=== PATIENT | male | born 1955 | race Caucasian/White ===

== ENCOUNTER 2017-02-01 19:57 | Outpatient (CLI) | payer OTHER | END 2017-02-01 19:58 | disposition EMS.NT | LOC: EMS 19:57 | PROVIDERS: ATTEND Surgery | DX: F41.9 Anxiety disorder, unspecified (principal) ==

== ENCOUNTER 2017-04-03 16:13 | Emergency (ER) | payer OTHER ==
--- NOTE | 2017-04-03 16:50 | ED Physician Documentation ---
History of Present Illness - Stated complaint Stated Complaint: KEENE/DIZZINESS - Chief complaint Chief Complaint: Neuro - History obtained from History obtained from: Patient, Family - History of Present Illness Timing: How many days ago (several) Pain level max: 6 Pain level now: 5 Improved by: rest Worsened by: movement, light, noise - Additonal information Additional information: Patient is a 61-year-old male who presents to the emergency department after using a gas powered log splitter on Monday, thinks it was not well ventilated and developed headache since that time. Does have a history of headaches, has not taken anything for this headache. He also has been feeling increasingly anxious about his as she has been ill recently. States occasionally he feels like he cannot catch his breath and his hands start to tingle. He is not currently on anything for his anxiety. Does have a history of anxiety. He also stated that he had mild chest pain 2 days ago and some shortness of breath. No history of cardiac disease. Review of Systems Ten Systems: 10 systems reviewed and negative Constitutional: denies: Fever, Chills Ears: denies: Ear pain, Drainage/discharge Nose: denies: Rhinorrhea / runny nose, Congestion Throat: denies: Sore throat Respiratory: denies: Cough, Hemoptysis, Wheezing Skin: denies: Rash Musculoskeletal: denies: Neck pain, Back pain Neurologic: denies: Generalized weakness, Confused, Altered mental status PD PAST MEDICAL HISTORY - Past Medical History Cardiovascular: [place], Other Respiratory: Sleep apnea : Kidney stones Musculoskeletal: Chronic back pain - Past Surgical History Past Surgical History: Yes General: Appendectomy Ortho: Shoulder arthroplasty, Spine surgery - Present Medications Home Medications: Ambulatory Orders Medication Instructions Recorded Confirmed Doxycycline Hyclate 100 mg PO BID #14 capsule 12/22/15 04/03/17 LORazepam [Ativan] 0.5 mg PO Q6H PRN #7 tablet 04/03/17 - Allergies Allergies/Adverse Reactions: Allergies Allergy/AdvReac Type Severity Reaction Status Date / Time amoxicillin Allergy Hives Verified 12/26/15 18:28 - Social History Does the pt smoke?: No Smoking Status: Never smoker Does the pt drink ETOH?: No Does the pt have substance abuse?: No - Immunizations Immunizations are current?: Yes - POLST Patient has POLST: No PD ED PE NORMAL - Vitals Vital signs reviewed: Yes - General General: Alert and oriented X 3, No acute distress, Well developed/nourished, Other (tremulous, tearful) - HEENT HEENT: Atraumatic, PERRL, Ears normal, Moist mucous membranes - Neck Neck: Supple, no meningeal sign - Cardiac Cardiac: RRR, No murmur, Strong equal pulses - Respiratory Respiratory: No respiratory distress, Clear bilaterally - Abdomen Abdomen: Soft, Non tender, Non distended - Derm Derm: Warm and dry - Extremities Extremities: No edema, No calf tenderness / cord - Neuro Neuro: Alert and oriented X 3 - Psych Psych: Other (extremely anxious) Results - Vitals Vitals: Vital Signs - 24 hr 04/03/17 04/03/17 04/03/17 16:21 18:30 19:33 Temperature 36.8 C Heart Rate 63 86 90 Respiratory 24 18 16 Rate Blood Pressure 127/77 98/64 118/85 H O2 Saturation 100 98 96 Oxygen O2 Source Room air - EKG (time done) 1635 Rate: Rate (enter#) (58) Rhythm: NSR (with significant artifact) [place]: Normal Intervals: Normal [place] QRS: Normal Ischemia: Normal ST segments - Labs Labs: Laboratory Tests 04/03/17 04/03/17 04/03/17 17:35 17:35 17:35 WBC 10.0 RBC 4.13 L Hgb 13.5 L Hct 39.9 L MCV 96.6 H MCH 32.7 H MCHC 33.8 RDW 12.9 Plt Count 276 MPV 7.8 Neut # 5.3 Lymph # 3.9 H Garza # 0.8 Eos # 0.0 Baso # 0.0 Absolute Nucleated RBC 0.00 Nucleated RBC % 0.0 VBG Total Hgb VBG Oxyhemoglobin VBG Carboxyhemoglobin VBG Methemoglobin Sodium 140 Potassium 4.3 Chloride 104 Carbon Dioxide 23 Anion Gap 13.0 BUN 17 Creatinine 1.0 Estimated GFR (MDRD) 75 L Glucose 97 Calcium 10.0 Total Bilirubin 1.4 H AST 43 H ALT 22 Alkaline Phosphatase 64 Troponin I < 0.04 Total Protein 7.4 Albumin 4.8 Globulin 2.6 Albumin/Globulin Ratio 1.8 Lipase 35 04/03/17 17:35 WBC RBC Hgb Hct MCV MCH MCHC RDW Plt Count MPV Neut # Lymph # Garza # Eos # Baso # Absolute Nucleated RBC Nucleated RBC % VBG Total Hgb 13.9 VBG Oxyhemoglobin 90 L VBG Carboxyhemoglobin 0.8 VBG Methemoglobin 0.2 Sodium Potassium Chloride Carbon Dioxide Anion Gap BUN Creatinine Estimated GFR (MDRD) Glucose Calcium Total Bilirubin AST ALT Alkaline Phosphatase Troponin I Total Protein Albumin Globulin Albumin/Globulin Ratio Lipase - Rads (name of study) head CT Radiology: Prelim report reviewed, EMP read contemporaneously, See rad report ( No acute intracranial abnormality. ) cxr Radiology: Prelim report reviewed, EMP read contemporaneously, See rad report ( Normal single view chest. ) PD MEDICAL DECISION MAKING - ED course Complexity details: reviewed results, re-evaluated patient, considered differential, d/w patient, d/w family ED course: Patient is a 61-year-old gentleman who presents to the emergency department with sounds like increasing anxiety over the past few days. He has been under increasing stress at home and work. Feels better after Ativan. Also appeared to have a migraine headache, this is not unusual for him and resolved with Toradol, and compazine. No acute findings on chest x-ray, EKG, laboratory testing. We will continue supportive care and follow-up with his doctor. Will prescribe a small amount of Ativan for his anxiety. Patient states that this is similar to prior panic attacks in the past. Patient and family counseled regarding signs and symptoms for which I believe and urgent re-evaluation would be necessary. Patient with good understanding of and agreement to plan and is comfortable going home at this time This document was made in part using voice recognition software. While efforts are made to proofread this document, sound alike and grammatical errors may occur. Departure - Departure Disposition: 01 Home, Self Care Clinical Impression: Anxiety Migraine Qualifiers: Migraine type: unspecified Status migrainosus presence: without status migrainosus Intractability: not intractable Qualified Code(s): G43.909 - Migraine, unspecified, not intractable, without status migrainosus Condition: Good Instructions: ED Stress React, ED Headache Migraine Follow-Up: AZAM ANNE [Primary Care Provider] - Within 1 week Prescriptions: LORazepam [Ativan] 0.5 mg PO Q6H PRN #7 tablet PRN Reason: Anxiety Comments: Do not drive or operate heavy machinery while taking ativan. Return if you worsen. Do not drive tonight. Discharge Date/Time: 04/03/17 19:33
[2017-04-03] MEDS ORDERED: LORazepam 2 MG/ML VIAL IVP STA (17:02)
[2017-04-03] MEDS ORDERED: LORazepam 2 MG/ML VIAL ONE (17:15)
--- NOTE | 2017-04-03 17:27 | CT Preliminary Report ---
Exam: CT HEAD W/O IMPRESSION: No acute intracranial abnormality. [facility] SITE ID: [id number]
--- NOTE | 2017-04-03 17:30 | CT Report ---
EXAM: CT HEAD EXAM DATE: 04/03/2017 05:17 PM. CLINICAL HISTORY: Headache x 3 days. COMPARISON: 01/13/2013 CT head. TECHNIQUE: Multiaxial CT images were obtained from the foramen magnum to the vertex. Reformats: Coron al. IV contrast: None. In accordance with CT protocol optimization, one or more of the following dose reduction techniques w ere utilized for this exam: automated exposure control, adjustment of mA and/or KV based on patient s ize, or use of iterative reconstructive technique. FINDINGS: Parenchyma: No intraparenchymal hemorrhage. No evidence of mass, midline shift, or CT findings of inf arction. Calderon-white differentiation is distinct. Extraaxial Spaces: Normal for age. No subdural or epidural collections identified. Ventricles: Normal in size and position. Sinuses and Orbits: Imaged paranasal sinuses, orbits, and mastoids show no significant abnormality. Bones: No evidence of fracture or calvarial defect. Other: None. IMPRESSION: No acute intracranial abnormality. [facility] Referring Provider Line: [phone] SITE ID: [id number]
[2017-04-03 17:42] LABS: BASOPHILS % (AUTO) 0.4 %; EOSINOPHILS % (AUTO) 0.4 %; HCT - HEMATOCRIT 39.9 % (42.0-52.0); HGB - HEMOGLOBIN 13.5 g/dL (14.0-18.0); LYMPHOCYTES # (AUTO) 3.9 10^3/uL (1.5-3.5); LYMPHOCYTES % (AUTO) 39.1 %; MEAN CORPUSCULAR HEMOGLOBIN 32.7 pg (27.0-31.0); MEAN CORPUSCULAR HGB CONC 33.8 g/dL (32.0-36.0); MEAN CORPUSCULAR VOLUME 96.6 fL (80.0-94.0); MEAN PLATELET VOLUME 7.8 fL (7.4-11.4); MONOCYTES # (AUTO) 0.8 10^3/uL (0.0-1.0); MONOCYTES % (AUTO) 7.6 %; NEUTROPHILS # (AUTO) 5.3 10^3/uL (1.5-6.6); NEUTROPHILS % (AUTO) 52.5 %; RED BLOOD COUNT 4.13 10^6/uL (4.70-6.10); RED CELL DISTRIBUTION WIDTH 12.9 % (12.0-15.0)
[2017-04-03 17:47] LABS: METHEMOGLOBIN VENOUS 0.2 % (0-1.5)
[2017-04-03] MEDS ORDERED: PROCHLORPERAZINE 10 MG/2 ML VIAL IVP STA (17:59)
[2017-04-03] MEDS ORDERED: KETOROLAC 60 MG/2 ML VIAL IVP STA (17:59)
--- NOTE | 2017-04-03 18:07 | XRAY Preliminary Report ---
Exam: XR CHEST 1 VIEW IMPRESSION: Normal single view chest. [facility] SITE ID: [id number]
[2017-04-03] MEDS ORDERED: KETOROLAC 30 MG/ML VIAL ONE (18:09)
[2017-04-03] MEDS ORDERED: PROCHLORPERAZINE 10 MG/2 ML VIAL ONE (18:09)
[2017-04-03 18:11] LABS: ALBUMIN/GLOBULIN RATIO 1.8 (1.0-2.2); BILIRUBIN,TOTAL 1.4 mg/dL (0.2-1.0); POTASSIUM 4.3 mmol/L (3.5-5.0); TOTAL PROTEIN 7.4 g/dL (6.7-8.2)
--- NOTE | 2017-04-03 18:17 | XRAY Report ---
EXAM: CHEST RADIOGRAPHY EXAM DATE: 04/03/2017 05:27 PM. CLINICAL HISTORY: Chest pain for the last several days. COMPARISON: 07/17/2015. TECHNIQUE: 1 view. FINDINGS: Lungs/Pleura: No focal opacities evident. No pleural effusion. No pneumothorax. Mediastinum: Within exam limitations, the cardiomediastinal contour is normal. Other: Remote right total shoulder replacement. IMPRESSION: Normal single view chest. [facility] Referring Provider Line: [phone] SITE ID: [id number]
[2017-04-03 19:34] VITALS: BP 118/85
== END 2017-04-03 19:33 | disposition home or self-care (01) ==
LOC: ED 16:13
DX: F41.9 Anxiety disorder, unspecified (principal); G43.909 Migraine, unspecified, not intractable, without status migrainosus; I25.2 Old myocardial infarction; G47.30 Sleep apnea, unspecified
CPT/HCPCS: 36415; 70450; 71010; 80053; 82375; 83690; 84484; 85025; 93005; 96374; 96375; 99284; J2060

== ENCOUNTER 2018-07-12 09:14 | Emergency (ER) | payer OTHER ==
[2018-07-12] MEDS ORDERED: SODIUM CHLORIDE 0.9% 1,000 ML IV ONE (09:42)
[2018-07-12] MEDS ORDERED: ONDANSETRON 4 MG/2 ML VIAL IVP STA (09:42)
--- NOTE | 2018-07-12 09:45 | ED Physician Documentation ---
PD HPI NVD - Stated complaint Stated Complaint: FLU LIKE SX - Chief complaint Chief Complaint: General - History obtained from History obtained from: Patient - History of Present Illness Timing - onset: Enter time (399), Today Timing - duration: Hours Timing - details: Abrupt onset, Still present Associated symptoms: Abdominal pain Contributing factors: Other (recent) Improved by: Vomiting Similar symptoms before: Diagnosis (gastroenteritis and viral syndrome) Recently seen: Not recently seen - Additonal information Additional information: Previously well 62-year-old male spent most of the day outside working yesterday and this morning at about 4 AM he awoke with nausea and vomiting and chills. He does not have any other specific symptoms. Review of Systems Constitutional: reports: Chills, Fatigue. denies: Fever Eyes: denies: Decreased vision Ears: denies: Ear pain Nose: denies: Rhinorrhea / runny nose, Congestion Throat: denies: Sore throat Cardiac: denies: Chest pain / pressure, Palpitations Respiratory: reports: Cough. denies: Dyspnea GI: reports: Abdominal Pain, Nausea, Vomiting, Constipation : denies: Dysuria, Frequency Skin: denies: Rash Musculoskeletal: denies: Neck pain, Back pain, Extremity pain PD PAST MEDICAL HISTORY - Past Medical History Cardiovascular: [place], Other Respiratory: Sleep apnea : Kidney stones Musculoskeletal: Chronic back pain - Past Surgical History Past Surgical History: Yes General: Appendectomy Ortho: Shoulder arthroplasty, Spine surgery - Present Medications Home Medications: Ambulatory Orders Medication Instructions Recorded Confirmed Ondansetron Odt [Zofran] 4 mg TL Q6H PRN #10 tablet 07/12/18 - Allergies Allergies/Adverse Reactions: Allergies Allergy/AdvReac Type Severity Reaction Status Date / Time amoxicillin Allergy Hives Verified 07/12/18 09:26 - Social History Does the pt smoke?: No Smoking Status: Never smoker Does the pt drink ETOH?: No Does the pt have substance abuse?: No - Immunizations Immunizations are current?: Yes - POLST Patient has POLST: No PD ED PE NORMAL - Vitals Vital signs reviewed: Yes (hypertensive ) - General General: No acute distress, Well developed/nourished, Other (patient is hyperventilating ) - HEENT HEENT: Atraumatic, PERRL, EOMI, Other (dry mucous membranes) - Neck Neck: Supple, no meningeal sign, No bony TTP - Cardiac Cardiac: RRR, No murmur - Respiratory Respiratory: No respiratory distress, Clear bilaterally - Abdomen Abdomen: Soft, Non tender - Back Back: No CVA TTP, No spinal TTP - Derm Derm: Normal color, Warm and dry, No rash - Extremities Extremities: No deformity, No edema - Neuro Neuro: Alert and oriented X 3, 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, No motor deficit, No sensory deficit, Normal speech Eye Opening: Spontaneous Motor: Obeys Commands Verbal: Oriented GCS Score: 15 - Psych Psych: Normal mood, Normal affect Results - Vitals Vitals: Vital Signs - 24 hr 07/12/18 07/12/18 09:19 12:27 Temperature 36 C L 36.7 C Heart Rate 56 L 50 L Respiratory 22 20 Rate Blood Pressure 156/85 H 146/74 H O2 Saturation 98 96 Oxygen O2 Source Room air - Labs Labs: Laboratory Tests 07/12/18 07/12/18 07/12/18 09:52 09:52 09:52 WBC 14.1 H RBC 4.30 L Hgb 13.8 L Hct 40.7 L MCV 94.6 H MCH 32.1 H MCHC 33.9 RDW 12.8 Plt Count 275 MPV 8.1 Neut # (Auto) 11.3 H Lymph # (Auto) 1.9 Prentiss # (Auto) 0.7 Eos # (Auto) 0.0 Baso # (Auto) 0.1 Absolute Nucleated RBC 0.00 Nucleated RBC % 0.0 Sodium 139 Potassium 3.3 L Chloride 102 Carbon Dioxide 23 Anion Gap 14.0 H BUN 14 Creatinine 1.1 Estimated GFR (MDRD) 67 L Glucose 123 H Lactic Acid Calcium 9.6 Total Bilirubin 2.0 H AST 22 ALT 15 Alkaline Phosphatase 69 Troponin I < 0.04 Total Protein 7.5 Albumin 4.8 Globulin 2.7 Albumin/Globulin Ratio 1.8 Lipase 27 Urine Color Urine Clarity Urine pH Ur Specific [place]rett Urine Protein Urine Glucose (UA) Urine Ketones Urine Occult Blood Urine Nitrite Urine Bilirubin Urine Urobilinogen Ur Leukocyte Esterase Ur Microscopic Review Urine Culture Comments 07/12/18 07/12/18 09:52 11:44 WBC RBC Hgb Hct MCV MCH MCHC RDW Plt Count MPV Neut # (Auto) Lymph # (Auto) Prentiss # (Auto) Eos # (Auto) Baso # (Auto) Absolute Nucleated RBC Nucleated RBC % Sodium Potassium Chloride Carbon Dioxide Anion Gap BUN Creatinine Estimated GFR (MDRD) Glucose Lactic Acid 1.8 Calcium Total Bilirubin AST ALT Alkaline Phosphatase Troponin I Total Protein Albumin Globulin Albumin/Globulin Ratio Lipase Urine Color YELLOW Urine Clarity CLEAR Urine pH 7.5 Ur Specific [place] 1.020 Urine Protein NEGATIVE Urine Glucose (UA) NEGATIVE Urine Ketones 40 H Urine Occult Blood TRACE-INTA Urine Nitrite NEGATIVE Urine Bilirubin NEGATIVE Urine Urobilinogen 0.2 (NORMAL) Ur Leukocyte Esterase NEGATIVE Ur Microscopic Review NOT INDICATED Urine Culture Comments NOT INDICATED Procedures - IVC sono (time) 0940 Bedside IVC sono: IVC measures (cm) (1.40), IVC collapsed c insp (cm) (complete), Dehydration (est 1 liter deficit) PD MEDICAL DECISION MAKING - ED course Complexity details: reviewed old records, reviewed results, re-evaluated patient, considered differential, d/w patient ED course: 62-year-old male with nausea and vomiting is dehydrated on interrogation of the inferior vena cava and he is administered saline. As well as Zofran. Departure - Departure Disposition: 01 Home, Self Care Clinical Impression: Nausea & vomiting Qualifiers: Vomiting type: unspecified Vomiting Intractability: non-intractable Qualified Code(s): R11.2 - Nausea with vomiting, unspecified Condition: Stable Instructions: ED Diet Vomiting Diarrhea Follow-Up: AZAM ANNE [Primary Care Provider] - Prescriptions: Ondansetron Odt [Zofran] 4 mg TL Q6H PRN #10 tablet PRN Reason: Nausea / Vomiting
[2018-07-12 10:06] LABS: BASOPHILS # (AUTO) 0.1 10^3/uL (0.0-0.1); BASOPHILS % (AUTO) 0.6 %; EOSINOPHILS % (AUTO) 0.3 %; HGB - HEMOGLOBIN 13.8 g/dL (14.0-18.0); LYMPHOCYTES # (AUTO) 1.9 10^3/uL (1.5-3.5); LYMPHOCYTES % (AUTO) 13.3 %; MEAN CORPUSCULAR HEMOGLOBIN 32.1 pg (27.0-31.0); MEAN CORPUSCULAR HGB CONC 33.9 g/dL (32.0-36.0); MEAN CORPUSCULAR VOLUME 94.6 fL (80.0-94.0); MEAN PLATELET VOLUME 8.1 fL (7.4-11.4); MONOCYTES # (AUTO) 0.7 10^3/uL (0.0-1.0); MONOCYTES % (AUTO) 5.2 %; NEUTROPHILS # (AUTO) 11.3 10^3/uL (1.5-6.6); NEUTROPHILS % (AUTO) 80.6 %; PLT - PLATELET COUNT 275 10^3/uL (130-450); RED CELL DISTRIBUTION WIDTH 12.8 % (12.0-15.0); WHITE BLOOD COUNT 14.1 x10^3/uL (4.8-10.8)
[2018-07-12 10:16] LABS: ALBUMIN 4.8 g/dL (3.2-5.5); ALBUMIN/GLOBULIN RATIO 1.8 (1.0-2.2); CALCIUM 9.6 mg/dL (8.5-10.3); CREATININE 1.1 mg/dL (0.6-1.2); TOTAL PROTEIN 7.5 g/dL (6.7-8.2)
[2018-07-12 12:01] LABS: BILIRUBIN,URINE NEGATIVE (NEGATIVE); GLUCOSE, URINE (UA) NEGATIVE (NEGATIVE); KETONES,URINE (UA) 40 mg/dL (NEGATIVE); LEUKOCYTE ESTERASE, URINE NEGATIVE (NEGATIVE); NITRITE,URINE NEGATIVE (NEGATIVE); OCCULT BLOOD,URINE TRACE-INTA (NEGATIVE); PH,URINE 7.5 PH (5.0-7.5); PROTEIN,URINE NEGATIVE (NEGATIVE); UROBILINOGEN,URINE 0.2 (NORMAL) E.U./dL (NORMAL)
[2018-07-12 12:04] LABS: CLARITY,URINE CLEAR (CLEAR)
[2018-07-12] MEDS ORDERED: POTASSIUM BICARB 25 MEQ TABLET PO STA (12:05)
[2018-07-12 12:27] VITALS: BP 146/74
== END 2018-07-12 13:19 | disposition home or self-care (01) ==
LOC: ED 09:14
DX: R11.2 Nausea with vomiting, unspecified (principal); E86.0 Dehydration; I25.2 Old myocardial infarction
CPT/HCPCS: 36415; 80053; 81003; 83605; 83690; 84484; 85025; 87040; 96361; 96374; 99283; A9270; 81001; 87086

== ENCOUNTER 2018-09-14 12:59 | Outpatient (CLI) | payer OTHER | END 2018-09-14 13:00 | disposition home or self-care (01) | LOC: DI 12:59 | PROVIDERS: ATTEND Family Medicine | DX: Z53.9 Procedure and treatment not carried out, unspecified reason (principal) ==

== ENCOUNTER 2018-10-02 13:19 | Outpatient (CLI) | payer MEDICARE, OTHER ==
--- NOTE | 2018-10-03 11:43 | MRI Report ---
Reason: PAIN IN UNSPECIFIED SHOULDER Procedure Date: 10/02/2018 Accession Number: [id number] / [id number] Procedure: MRI - Shoulder RT W/O CPT Code: FULL RESULT: EXAM: RIGHT SHOULDER MRI WITHOUT CONTRAST EXAM DATE: 10/02/2018 03:10 PM. CLINICAL HISTORY: Shoulder arthroplasty, with pain. COMPARISON: None. TECHNIQUE: Multiplanar, multisequence T1-weighted and fluid-sensitive sequences of the shoulder without contrast. Other: Artifact from metallic shoulder arthroplasty. FINDINGS: Acromioclavicular Region: The acromion is type II. The acromioclavicular joint is unremarkable. The coracoacromial and coracoclavicular ligaments are intact. No subacromial/subdeltoid bursal fluid. Glenohumeral Region: No subluxation. No effusion or loose bodies. Bone Marrow: No fracture, marrow edema or bone lesions. Labrum: Labrum not visualized. Shoulder arthroplasty. Musculature/Rotator Cuff: Assessment of the individual tendons is a somewhat difficult because of the amount of artifact which is present; however, there is some thickening of the supraspinatus. Infraspinatus and teres minor have a more normal appearance. Subscapularis is not well seen. On the more proximal sagittals, there is distinct focal fatty atrophy of the superior 80% of the subscapularis. Series 801 image 23 for example. Biceps Tendon: Long head of biceps is not seen. Uncertain if this is related to pathology or just artifact from the shoulder arthroplasty. Other: The subcutaneous tissues are unremarkable. IMPRESSION: 1. 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 Type II undersurface osseous acromion. Labrum not visualized. 2. Some abnormal thickening/tendinopathy seen in the supraspinatus. Infraspinatus and teres minor are normal appearance. The subscapularis attachment is not seen. Uncertain if this is torn or atrophic. There is substantial fatty atrophy more proximally involving the majority of the subscapularis muscle. 3. Long head of the biceps is not seen, uncertain if this is related to poor visibility secondary to artifact or if the patient has had a tenodesis. [facility]
== END 2018-10-02 13:20 | disposition home or self-care (01) ==
LOC: DI 13:19
PROVIDERS: ATTEND Family Medicine
DX: M75.91 Shoulder lesion, unspecified, right shoulder (principal)

== ENCOUNTER 2018-10-16 09:53 | Day surgery (SDC) | payer MEDICARE, OTHER ==
[2018-10-16] MEDS ORDERED: LACTATED RINGERS 1,000 ML IV ONE ×2 (10:07→12:02)
[2018-10-16] MEDS ORDERED: MIDAZOLAM 2 MG/2 ML VIAL IVP ONE (11:23)
[2018-10-16] MEDS ORDERED: fentaNYL 250 MCG/5 ML VIAL IVP ONE (11:23)
[2018-10-16] MEDS ORDERED: LIDO GARGLE 30 ML BOTTLE ONE (11:27)
[2018-10-16] MEDS ORDERED: LIDO GARGLE 30 ML BOTTLE PO ONE (11:44)
[2018-10-16 12:54] VITALS: BP 90/56
== END 2018-10-16 09:54 | disposition home or self-care (01) ==
LOC: SDS 09:53
PROVIDERS: ATTEND Internal Medicine Gastroenterology
PROC: 0DBP8ZZ Excision of Rectum, Via Natural or Artificial Opening Endoscopic (ICD-10-PCS; 2018-10-16)
PROC: 0DBN8ZZ Excision of Sigmoid Colon, Via Natural or Artificial Opening Endoscopic (ICD-10-PCS; 2018-10-16)
PROC: 0DB98ZX Excision of Duodenum, Via Natural or Artificial Opening Endoscopic, Diagnostic (ICD-10-PCS; 2018-10-16)
PROC: 0DB78ZX Excision of Stomach, Pylorus, Via Natural or Artificial Opening Endoscopic, Diagnostic (ICD-10-PCS; 2018-10-16)
PROC: 0DBP8ZZ Excision of Rectum, Via Natural or Artificial Opening Endoscopic (ICD-10-PCS; principal; 2018-10-16 11:15)
PROC: 0DBN8ZZ Excision of Sigmoid Colon, Via Natural or Artificial Opening Endoscopic (ICD-10-PCS; 2018-10-16 11:15)
DX: D11.0 Benign neoplasm of parotid gland (principal); D64.9 Anemia, unspecified; D12.5 Benign neoplasm of sigmoid colon; K62.1 Rectal polyp; K57.30 Diverticulosis of large intestine without perforation or abscess without bleeding; F17.220 Nicotine dependence, chewing tobacco, uncomplicated; G47.30 Sleep apnea, unspecified
CPT/HCPCS: 43239; 45380; 45385; A9270; J3010; J7120

== ENCOUNTER 2019-06-04 10:10 | Emergency (ER) | payer MEDICARE, OTHER ==
[2019-06-04 10:38] LABS: BASOPHILS # (AUTO) 0.1 10^3/uL (0.0-0.1); BASOPHILS % (AUTO) 0.5 %; EOSINOPHILS # (AUTO) 0.1 10^3/uL (0.0-0.7); EOSINOPHILS % (AUTO) 0.8 %; HGB - HEMOGLOBIN 13.4 g/dL (14.0-18.0); MEAN CORPUSCULAR HEMOGLOBIN 32.8 pg (27.0-31.0); MEAN CORPUSCULAR HGB CONC 35.1 g/dL (32.0-36.0); MEAN CORPUSCULAR VOLUME 93.6 fL (80.0-94.0); MEAN PLATELET VOLUME 9.2 fL (7.4-11.4); MONOCYTES # (AUTO) 0.8 10^3/uL (0.0-1.0); MONOCYTES % (AUTO) 6.8 %; NEUTROPHILS # (AUTO) 8.1 10^3/uL (1.5-6.6); NEUTROPHILS % (AUTO) 73.4 %; PLT - PLATELET COUNT 244 10^3/uL (130-450); RED BLOOD COUNT 4.08 10^6/uL (4.70-6.10); RED CELL DISTRIBUTION WIDTH 12.8 % (12.0-15.0)
[2019-06-04] MEDS ORDERED: ONDANSETRON 4 MG/2 ML VIAL IVP STA (10:59)
[2019-06-04] MEDS ORDERED: SODIUM CHLORIDE 0.9% 1,000 ML IV ONE (11:14)
--- NOTE | 2019-06-04 11:17 | ED Physician Documentation ---
PD HPI NVD - Stated complaint Stated Complaint: VOMITING,CHILLS - Chief complaint Chief Complaint: Abd Pain - History obtained from History obtained from: Patient - History of Present Illness Timing - onset: How many days ago (5) Timing - duration: Days (5) Associated symptoms: No: Fever, Abdominal pain, Hematemesis, Dizzy, Dysuria Contributing factors: No: Sick contact, Bad food Recently seen: Not recently seen - Additonal information Additional information: This is a 63-year-old man who presents with complaints that he began vomiting about 5 days ago in the morning. He says since that time he will feel better through the day and last night he thought he was doing better because he ate some bouillon and oatmeal and then this morning ate some Cheerios and then he started throwing up again. Last emesis was about an hour prior to presentation. Has had some intermittent abdominal pain. Denies any diarrhea and has not seen blood in the vomit. He does complain of feeling freezing but has not checked his temperature to see if he had a fever. Has been sucking on cough drops just to try and keep his mouth moistened but denies any cough. He feels like there is pain behind his eyes whenever he stands up but he does not really have a headache. He is wearing dark glasses just because the light bothers his eyes but it seems like that may be a chronic issue. He has not passed out. Denies any palpitations or chest pain. Has had a bit of a stuffy nose. Denies any history of heart disease. He did not eat anything that he thinks may have made him sick and has not been around anyone who is been ill. He is retired. Review of Systems Constitutional: reports: Chills. denies: Fever Eyes: reports: Photophobia, Other (Pain behind the eyes). denies: Loss of vision Ears: denies: Ear pain Nose: reports: Congestion. denies: Rhinorrhea / runny nose Throat: denies: Sore throat Cardiac: denies: Chest pain / pressure, Palpitations Respiratory: denies: Dyspnea, Cough GI: reports: Abdominal Pain, Nausea, Vomiting. denies: Constipation, Diarrhea : denies: Dysuria Endocrine: reports: Other (He is not diabetic) PD PAST MEDICAL HISTORY - Past Medical History Past Medical History: Yes Cardiovascular: [place], Other Respiratory: Sleep apnea : Kidney stones Musculoskeletal: Chronic back pain - Past Surgical History Past Surgical History: Yes General: Appendectomy Ortho: Shoulder arthroplasty, Spine surgery - Present Medications Home Medications: Ambulatory Orders Medication Instructions Recorded Confirmed Ibuprofen 600 mg PO PRN PRN 10/15/18 06/04/19 Metoclopramide [Reglan] 10 mg PO ACHS #20 tablet 06/04/19 - Allergies Allergies/Adverse Reactions: Allergies Allergy/AdvReac Type Severity Reaction Status Date / Time amoxicillin Allergy Hives Verified 06/04/19 10:26 - Social History Does the pt smoke?: No Smoking Status: Never smoker Does the pt drink ETOH?: No Does the pt have substance abuse?: No - Immunizations Immunizations are current?: Yes - POLST Patient has POLST: No PD ED PE NORMAL - Vitals Vital signs reviewed: Yes - General General: Alert and oriented X 3, No acute distress, Well developed/nourished, Other (He has on dark glasses) - HEENT HEENT: Atraumatic, PERRL, EOMI, Other (Mucous membranes are dry. There is no scleral icterus) - Neck Neck: Supple, no meningeal sign, No adenopathy - Cardiac Cardiac: RRR, No murmur, Strong equal pulses - Respiratory Respiratory: No respiratory distress, Clear bilaterally - Abdomen Abdomen: Normal bowel sounds, Soft, No organomegaly, Other (Minimal diffuse tenderness without guarding or rebound) - Back Back: No CVA TTP - Derm Derm: Normal color, Warm and dry, No rash - Extremities Extremities: No deformity, No edema - Neuro Neuro: Alert and oriented X 3, public stenographer 2-12 intact, No motor deficit, No sensory d eficit, Normal speech - Psych Psych: Normal mood, Normal affect Results - Vitals Vitals: Vital Signs - 24 hr 06/04/19 06/04/19 06/04/19 10:21 10:42 12:31 Temperature 36.6 C Heart Rate 45 L 53 L 71 Respiratory 16 20 14 Rate Blood Pressure 184/84 H 165/75 H 97/65 O2 Saturation 98 100 95 06/04/19 14:50 Temperature Heart Rate 80 Respiratory 16 Rate Blood Pressure 119/87 H O2 Saturation 98 Oxygen O2 Source Room air - EKG (time done) 1110 Rate: Rate (enter#) (48) Rhythm: Sinus bradycardia Intervals: No: Wide QRS Ischemia: Non specific changes, Other (Peaked T waves diffusely.) Compare to prior EKG: Old EKG unavailable - Labs Labs: Laboratory Tests 06/04/19 06/04/19 06/04/19 10:35 10:35 10:35 WBC 11.0 H RBC 4.08 L Hgb 13.4 L Hct 38.2 L MCV 93.6 MCH 32.8 H MCHC 35.1 RDW 12.8 Plt Count 244 MPV 9.2 Neut # (Auto) 8.1 H Lymph # (Auto) 2.0 [place] # (Auto) 0.8 Eos # (Auto) 0.1 Baso # (Auto) 0.1 Absolute Nucleated RBC 0.00 Nucleated RBC % 0.0 Sodium 141 Potassium 3.8 Chloride 103 Carbon Dioxide 25 Anion Gap 13.0 BUN 13 Creatinine 1.0 Estimated GFR (MDRD) 75 L Glucose 117 H Calcium 9.5 Total Bilirubin 1.9 H AST 23 ALT 19 Alkaline Phosphatase 71 Troponin I High Sens 6.7 Total Protein 7.1 Albumin 4.4 Globulin 2.7 Albumin/Globulin Ratio 1.6 Lipase 31 Urine Color Urine Clarity Urine pH Ur Specific [place] Urine Protein Urine Glucose (UA) Urine Ketones Urine Occult Blood Urine Nitrite Urine Bilirubin Urine Urobilinogen Ur Leukocyte Esterase Urine RBC Urine WBC Ur Squamous Epith Cells Urine Bacteria Ur Microscopic Review Urine Culture Comments 06/04/19 12:16 WBC RBC Hgb Hct MCV MCH MCHC RDW Plt Count MPV Neut # (Auto) Lymph # (Auto) [place] # (Auto) Eos # (Auto) Baso # (Auto) Absolute Nucleated RBC Nucleated RBC % Sodium Potassium Chloride Carbon Dioxide Anion Gap BUN Creatinine Estimated GFR (MDRD) Glucose Calcium Total Bilirubin AST ALT Alkaline Phosphatase Troponin I High Sens Total Protein Albumin Globulin Albumin/Globulin Ratio Lipase Urine Color YELLOW Urine Clarity CLEAR Urine pH 7.5 Ur Specific [place] 1.015 Urine Protein NEGATIVE Urine Glucose (UA) NEGATIVE Urine Ketones NEGATIVE Urine Occult Blood SMALL H Urine Nitrite NEGATIVE Urine Bilirubin NEGATIVE Urine Urobilinogen 0.2 (NORMAL) Ur Leukocyte Esterase NEGATIVE Urine RBC 0-5 Urine WBC 0-3 Ur Squamous Epith Cells NONE SEEN Urine Bacteria Rare Ur Microscopic Review INDICATED Urine Culture Comments NOT INDICATED - Rads (name of study) CT abd/pelvis Radiology: See rad report (no obstructing kidney stone; diverticuli without diverticulitis) PD MEDICAL DECISION MAKING - ED course Complexity details: reviewed results, re-evaluated patient, d/w patient ED course: Patient had an IV fluids. Had Zofran IV. White blood cell count is normal and BUN and creatinine are normal. He had just 0-5 red blood cells per high-power field and the last time he felt like this 10 to 20 years ago he had a kidney stone. We discussed the risk and benefits of imaging and he would like to have a CT scan done. 1554: The CT scan was negative for obstructing kidney stone or diverticulitis. He is discharged with instructions to take Pepcid and I gave him a prescription for Reglan to use before meals. I have recommended follow-up with GI specialist as it seems that this is more longstanding issue than he initially stated. Departure - Departure Disposition: 01 Home, Self Care Clinical Impression: Vomiting Qualifiers: Vomiting type: unspecified Vomiting Intractability: non-intractable Nausea presence: with nausea Qualified Code(s): R11.2 - Nausea with vomiting, unspecified Abdominal pain Qualifiers: Abdominal location: generalized Qualified Code(s): R10.84 - Generalized abdominal pain Condition: Good Instructions: ED Abdominal Pain Unkn Cause Follow-Up: Pramod Santoyo MD [Physician No Access] - CARMELINA ZUÑIGA MD [Physician No Access] - Prescriptions: Metoclopramide [Reglan] 10 mg PO ACHS #20 tablet Comments: Your CT scan shows no evidence of an obstructing kidney stone although you have some small kidney stones in the kidney. You also have diverticulosis without evidence of any inflammation to indicate infection. Take the Pepcid daily. Trial of Reglan a half an hour before you eat breakfast in the morning or dinner at night to see if that makes any difference with your nausea and abdominal pain. I have given you numbers for referrals to [facility] and [facility] and you can decide which one is most appropriate for you. Evaluation by GI specialist is probably warranted with this longstanding issue. Discharge Date/Time: 06/04/19 16:05
[2019-06-04 11:46] LABS: ALBUMIN 4.4 g/dL (3.2-5.5); ALBUMIN/GLOBULIN RATIO 1.6 (1.0-2.2); BILIRUBIN,TOTAL 1.9 mg/dL (0.2-1.0); CALCIUM 9.5 mg/dL (8.5-10.3); TOTAL PROTEIN 7.1 g/dL (6.7-8.2)
[2019-06-04 12:38] LABS: BILIRUBIN,URINE NEGATIVE (NEGATIVE); GLUCOSE, URINE (UA) NEGATIVE (NEGATIVE); KETONES,URINE (UA) NEGATIVE (NEGATIVE); LEUKOCYTE ESTERASE, URINE NEGATIVE (NEGATIVE); NITRITE,URINE NEGATIVE (NEGATIVE); OCCULT BLOOD,URINE SMALL (NEGATIVE); PH,URINE 7.5 PH (5.0-7.5); PROTEIN,URINE NEGATIVE (NEGATIVE); UROBILINOGEN,URINE 0.2 (NORMAL) E.U./dL (NORMAL)
[2019-06-04 12:40] LABS: CLARITY,URINE CLEAR (CLEAR)
[2019-06-04 12:50] LABS: BACTERIA,URINE Rare /HPF (None Seen); RBC,URINE 0-5 /HPF (0-5); SQUAMOUS EPITHELIAL CELL,UR NONE SEEN (<= Few)
[2019-06-04 14:50] VITALS: BP 119/87
--- NOTE | 2019-06-04 14:51 | CT Report ---
Reason: abd pain Procedure Date: 06/04/2019 Accession Number: [id number] / [id number] Procedure: CT - Abdomen/Pelvis WO CPT Code: Final Report FULL RESULT: EXAM: CT ABDOMEN AND PELVIS EXAM DATE: 06/04/2019 02:27 PM. CLINICAL HISTORY: Abd pain. COMPARISONS: KUB 05/16/2014 12:57 PM. TECHNIQUE: Routine helical CT imaging was performed through the abdomen and pelvis. IV contrast: None. Enteric contrast: No. Reconstructions: Coronal and sagittal. In accordance with CT protocol optimization, one or more of the following dose reduction techniques were utilized for this exam: automated exposure control, adjustment of mA and/or KV based on patient size, or use of iterative reconstructive technique. FINDINGS: Lung Bases: Unremarkable. Liver: Normal. No masses. Gallbladder/Bile Ducts: Unremarkable. Spleen: Normal. Pancreas: Normal. Adrenal Glands: Normal. Kidneys: No solid renal masses or hydronephrosis bilaterally. Bilateral nonobstructing small renal calculi seen, the largest in the right mid pole measuring 5 mm. No perinephric fat stranding. No ureteral calculi are seen. Simple appearing exophytic 2.5 cm left interpolar renal cyst. Peritoneal Cavity/Bowel: Unremarkable stomach. Normal caliber small bowel loops without signs of wall thickening or fluid levels. Scattered sigmoid colonic diverticula noted without evidence for acute inflammation. Stable few prominent retroperitoneal lymph nodes. No new or enlarging intra-abdominal lymphadenopathy. No masses are seen. No discrete fluid collections. Appendix appears surgically absent with a staple line at the inferior cecum. Pelvic Organs: Unremarkable urinary bladder for degree of distention. Prostate and seminal vesicles appear unremarkable on noncontrast CT. No enlarged pelvic or inguinal lymph nodes. Vasculature: No aneurysms or other significant abnormality. Bones: No significant abnormality. Other: None. IMPRESSION: 1. No acute abnormality seen in the abdomen or pelvis. No CT findings to explain acute abdominal pain. 2. Bilateral nonobstructing renal calculi are seen. No obstructing calculi nor hydronephrosis bilaterally. 3. Scattered sigmoid colonic diverticulosis without evidence for acute diverticulitis. RADIA
== END 2019-06-04 16:05 | disposition home or self-care (01) ==
LOC: ED 10:10
DX: R11.2 Nausea with vomiting, unspecified (principal); R10.84 Generalized abdominal pain; N20.0 Calculus of kidney
CPT/HCPCS: 36415; 74176; 80053; 81001; 81003; 83690; 84484; 85025; 87086; 93005; 96361; 96374; 99284

== ENCOUNTER 2019-07-07 13:26 | Emergency (ER) | payer MEDICARE, OTHER ==
[2019-07-07 13:40] VITALS: BP 119/63
--- NOTE | 2019-07-07 14:15 | ED Physician Documentation ---
History of Present Illness - Stated complaint Stated Complaint: LT SHOULDER PX - Chief complaint Chief Complaint: Ext Problem - History obtained from History obtained from: Patient - History of Present Illness Timing: Today Pain level max: 7 Pain level now: 7 - Additonal information Additional information: 63-year-old male with left shoulder pain. States he awoke with this pain today. Worse with movement and better with rest. History of chronic shoulder problems on the right. Does not recall any injury. Took ibuprofen without relief. No fall. No trauma. No lifting. Review of Systems Constitutional: denies: Fever, Chills GI: denies: Vomiting, Diarrhea Skin: denies: Rash Musculoskeletal: denies: Neck pain, Back pain Neurologic: denies: Headache PD PAST MEDICAL HISTORY - Past Medical History Cardiovascular: [place], Other Respiratory: Sleep apnea : Kidney stones Musculoskeletal: Chronic back pain - Past Surgical History Past Surgical History: Yes General: Appendectomy Ortho: Shoulder arthroplasty, Spine surgery - Present Medications Home Medications: Ambulatory Orders Medication Instructions Recorded Confirmed Ibuprofen 600 mg PO PRN PRN 10/15/18 06/04/19 Metoclopramide [Reglan] 10 mg PO ACHS #20 tablet 06/04/19 Ibuprofen [Motrin] 800 mg PO Q8H PRN #30 tablet 07/07/19 - Allergies Allergies/Adverse Reactions: Allergies Allergy/AdvReac Type Severity Reaction Status Date / Time amoxicillin Allergy Hives Verified 07/07/19 13:30 - Social History Does the pt smoke?: No Smoking Status: Never smoker Does the pt drink ETOH?: No Does the pt have substance abuse?: No - Immunizations Immunizations are current?: Yes - POLST Patient has POLST: No PD ED PE NORMAL - Vitals Vital signs reviewed: Yes - General General: Alert and oriented X 3, No acute distress - HEENT HEENT: Moist mucous membranes - Neck Neck: Supple, no meningeal sign - Cardiac Cardiac: RRR - Respiratory Respiratory: No respiratory distress, Clear bilaterally - Derm Derm: Warm and dry - Extremities Extremities: Other (Diffusely tender to palpation over the left shoulder. No deformity. Limited range of motion with external and internal rotation. Also abduction. Neurovascular intact including the axillary nerve.) - Neuro Neuro: Alert and oriented X 3 Results - Vitals Vitals: Vital Signs - 24 hr 07/07/19 13:30 Temperature 36.7 C Heart Rate 64 Respiratory 14 Rate Blood Pressure 119/63 O2 Saturation 100 Oxygen O2 Source Room air - Rads (name of study) Left shoulder x-ray Radiology: Prelim report reviewed, EMP read contemporaneously, See rad report (1. No acute osseous abnormality. 2. Amorphous 1 x 0.6 cm calcification ove rlying the greater tuberosity of the humerus near the rotator cuff insertion suggests which appears to be in the distribution of the subscapularis tendon. Findings suggest rotator cuff calcific tendinosis. 3. Moderate glenohumeral joint osteoarthritis. ) PD MEDICAL DECISION MAKING - ED course Complexity details: reviewed results, re-evaluated patient, considered differential, d/w patient ED course: Patient with what appears to be a rotator cuff tendinitis. He states he does not want anything stronger than ibuprofen. Declines a sling. Will continue gentle movement and stretching. Neurovascular intact. Patient counseled regarding signs and symptoms for which I believe and urgent re-evaluation would be necessary. Patient with good understanding of and agreement to plan and is comfortable going home at this time This document was made in part using voice recognition software. While efforts are made to proofread this document, sound alike and grammatical errors may occur. Departure - Departure Disposition: 01 Home, Self Care Clinical Impression: Rotator cuff tendonitis Qualifiers: Laterality: left Qualified Code(s): M75.82 - Other shoulder lesions, left shoulder Condition: Good Instructions: ED Tendinitis Rotator Cuff, ED Tendinitis Calcific Follow-Up: KATY RENO MD [Primary Care Provider] - Within 1 week Prescriptions: Ibuprofen [Motrin] 800 mg PO Q8H PRN #30 tablet PRN Reason: PAIN &/OR FEVER Comments: Continue gentle stretching. Return if you worsen. This should improve over the next 1-2 weeks. Discharge Date/Time: 07/07/19 15:19
--- NOTE | 2019-07-07 15:02 | XRAY Report ---
Reason: L shoulder pain Procedure Date: 07/07/2019 Accession Number: [id number] / [id number] Procedure: XR - Shoulder 3 View LT CPT Code: Final Report FULL RESULT: EXAM: LEFT SHOULDER RADIOGRAPHY EXAM DATE: 07/07/2019 02:31 PM. CLINICAL HISTORY: Left shoulder pain. No trauma. COMPARISON: None. TECHNIQUE: 3 views. FINDINGS: Bones: No acute fracture. No suspicious osseous lesion. Joints: Moderate glenohumeral joint osteoarthritis with small osteophytes along the inferior arc of the humeral head and the inferior glenoid. Mild to moderate acromioclavicular joint osteoarthritis. No dislocation. Other: Amorphous 1 x 0.6 cm calcification overlying the greater tuberosity of the humerus near the rotator cuff insertion suggests which appears to be in the distribution of the subscapularis tendon. There are calcifications in the aortic arch. IMPRESSION: 1. No acute osseous abnormality. 2. Amorphous 1 x 0.6 cm calcification overlying the greater tuberosity of the humerus near the rotator cuff insertion suggests which appears to be in the distribution of the subscapularis tendon. Findings suggest rotator cuff calcific tendinosis. 3. Moderate glenohumeral joint osteoarthritis. RADIA
== END 2019-07-07 15:19 | disposition home or self-care (01) ==
LOC: ED 13:26
DX: M75.82 Other shoulder lesions, left shoulder (principal)
CPT/HCPCS: 99283; 99284

== ENCOUNTER 2020-03-01 10:17 | Emergency (ER) | payer MEDICARE, OTHER ==
[2020-03-01 11:05] LABS: BASOPHILS % (AUTO) 0.2 %; EOSINOPHILS % (AUTO) 0.2 %; HGB - HEMOGLOBIN 12.8 g/dL (14.0-18.0); LYMPHOCYTES # (AUTO) 1.5 10^3/uL (1.5-3.5); LYMPHOCYTES % (AUTO) 12.2 %; MEAN CORPUSCULAR HEMOGLOBIN 33.2 pg (27.0-31.0); MEAN CORPUSCULAR VOLUME 94.8 fL (80.0-94.0); MEAN PLATELET VOLUME 9.7 fL (7.4-11.4); MONOCYTES # (AUTO) 0.7 10^3/uL (0.0-1.0); NEUTROPHILS # (AUTO) 9.9 10^3/uL (1.5-6.6); NEUTROPHILS % (AUTO) 80.9 %; PLT - PLATELET COUNT 240 10^3/uL (130-450); RED BLOOD COUNT 3.86 10^6/uL (4.70-6.10); RED CELL DISTRIBUTION WIDTH 12.2 % (12.0-15.0); WHITE BLOOD COUNT 12.3 x10^3/uL (4.8-10.8)
[2020-03-01 11:18] LABS: ALBUMIN 4.3 g/dL (3.2-5.5); ALBUMIN/GLOBULIN RATIO 1.7 (1.0-2.2); BILIRUBIN,TOTAL 1.9 mg/dL (0.2-1.0); CALCIUM 9.6 mg/dL (8.5-10.3); TOTAL PROTEIN 6.9 g/dL (6.7-8.2)
[2020-03-01 11:29] LABS: BILIRUBIN,URINE NEGATIVE (NEGATIVE); GLUCOSE, URINE (UA) NEGATIVE (NEGATIVE); KETONES,URINE (UA) NEGATIVE (NEGATIVE); LEUKOCYTE ESTERASE, URINE NEGATIVE (NEGATIVE); NITRITE,URINE NEGATIVE (NEGATIVE); OCCULT BLOOD,URINE MODERATE (NEGATIVE); PROTEIN,URINE NEGATIVE (NEGATIVE); UROBILINOGEN,URINE 0.2 (NORMAL) E.U./dL (NORMAL)
[2020-03-01] MEDS ORDERED: SODIUM CHLORIDE 0.9% 1,000 ML IV STA (11:29)
[2020-03-01] MEDS ORDERED: ONDANSETRON 4 MG/2 ML VIAL IVP STA (11:29)
[2020-03-01 11:30] LABS: CLARITY,URINE CLEAR (CLEAR)
[2020-03-01 11:48] LABS: BACTERIA,URINE Few /HPF (None Seen); RBC,URINE 0-5 /HPF (0-5); SQUAMOUS EPITHELIAL CELL,UR NONE SEEN (<= Few)
--- NOTE | 2020-03-01 12:57 | ED Physician Documentation ---
PD HPI ABD PAIN - Stated complaint Stated Complaint: VOMITING - Chief complaint Chief Complaint: Abd Pain - History obtained from History obtained from: Patient - Additional information Additional information: Pt c/o vomiting since yesterday. No diarrhea or fevers. Cramping, but otherwise no abdominal pain. Pt states that he gets these sx regularly, and that the sx are not different from his usual episodes. He states he is mainly here because he is afraid he has become too dehydrated. Review of Systems Ten Systems: 10 systems reviewed and negative Constitutional: reports: Reviewed and negative Eyes: reports: Reviewed and negative Ears: reports: Reviewed and negative Nose: reports: Reviewed and negative Throat: reports: Reviewed and negative Cardiac: reports: Reviewed and negative Respiratory: reports: Reviewed and negative GI: reports: Nausea, Vomiting : reports: Reviewed and negative Skin: reports: Reviewed and negative Musculoskeletal: reports: Reviewed and negative Neurologic: reports: Reviewed and negative Psychiatric: reports: Reviewed and negative Endocrine: reports: Reviewed and negative Immunocompromised: reports: Reviewed and negative PD PAST MEDICAL HISTORY - Past Medical History Cardiovascular: [place], Other Respiratory: Sleep apnea : Kidney stones Musculoskeletal: Chronic back pain - Past Surgical History Past Surgical History: Yes General: Appendectomy Ortho: Shoulder arthroplasty, Spine surgery - Present Medications Home Medications: Ambulatory Orders Medication Instructions Recorded Confirmed Ibuprofen 600 mg PO PRN PRN 10/15/18 06/04/19 Metoclopramide [Reglan] 10 mg PO ACHS #20 tablet 06/04/19 Ibuprofen [Motrin] 800 mg PO Q8H PRN #30 tablet 07/07/19 Promethazine [Phenergan] 25 mg PO Q6H PRN #10 tab 03/02/20 - Allergies Allergies/Adverse Reactions: Allergies Allergy/AdvReac Type Severity Reaction Status Date / Time amoxicillin Allergy Hives Verified 03/01/20 10:23 - Social History Does the pt smoke?: No Smoking Status: Never smoker Does the pt drink ETOH?: No Does the pt have substance abuse?: No - Immunizations Immunizations are current?: Yes - POLST Patient has POLST: No PD ED PE NORMAL - Vitals Vital signs reviewed: Yes - General General: Alert and oriented X 3, No acute distress - HEENT HEENT: Atraumatic, PERRL, EOMI, Moist mucous membranes - Neck Neck: Supple, no meningeal sign - Cardiac Cardiac: RRR, No murmur, Strong equal pulses - Respiratory Respiratory: No respiratory distress, Clear bilaterally - Abdomen Abdomen: Soft, Non tender, Non distended - Derm Derm: Normal color, Warm and dry, No rash - Extremities Extremities: No deformity, No edema, No calf tenderness / cord - Neuro Neuro: Alert and oriented X 3, Other (grossly normal) - Psych Psych: Normal mood, Normal affect Results - Vitals Vitals: Oxygen O2 Source Room air - Labs Labs: Laboratory Tests 03/01/20 03/01/20 03/01/20 10:55 10:55 11:07 WBC 12.3 H RBC 3.86 L Hgb 12.8 L Hct 36.6 L MCV 94.8 H MCH 33.2 H MCHC 35.0 RDW 12.2 Plt Count 240 MPV 9.7 Neut # (Auto) 9.9 H Lymph # (Auto) 1.5 [place] # (Auto) 0.7 Eos # (Auto) 0.0 Baso # (Auto) 0.0 Absolute Nucleated RBC 0.00 Nucleated RBC % 0.0 Sodium 136 Potassium 3.5 Chloride 99 L Carbon Dioxide 25 Anion Gap 12.0 BUN 18 Creatinine 1.0 Estimated GFR (MDRD) 75 L Glucose 122 H Calcium 9.6 Total Bilirubin 1.9 H AST 21 ALT 19 Alkaline Phosphatase 70 Total Protein 6.9 Albumin 4.3 Globulin 2.6 Albumin/Globulin Ratio 1.7 Lipase 28 Urine Color DARK YELLOW Urine Clarity CLEAR Urine pH 6.0 Ur Specific [place] 1.025 Urine Protein NEGATIVE Urine Glucose (UA) NEGATIVE Urine Ketones NEGATIVE Urine Occult Blood MODERATE H Urine Nitrite NEGATIVE Urine Bilirubin NEGATIVE Urine Urobilinogen 0.2 (NORMAL) Ur Leukocyte Esterase NEGATIVE Urine RBC 0-5 Urine WBC 0-3 Ur Squamous Epith Cells NONE SEEN Urine Bacteria Few Ur Microscopic Review INDICATED Urine Culture Comments NOT INDICATED PD MEDICAL DECISION MAKING - ED course Complexity details: reviewed results, re-evaluated patient, considered differential, d/w patient ED course: Labs were unremarkable. Pt was treated with IV fluids and Zofran, after which he was found to be feeling much better. We have discussed home management of sx, as well as the usual indications for return. Departure - Departure Disposition: 01 Home, Self Care Clinical Impression: Vomiting Qualifiers: Vomiting type: unspecified Vomiting Intractability: non-intractable Nausea presence: with nausea Qualified Code(s): R11.2 - Nausea with vomiting, unspecified Condition: Stable Instructions: ED Nausea Vomiting Discharge Date/Time: 03/01/20 13:12
[2020-03-01 13:14] VITALS: BP 141/85
== END 2020-03-01 13:12 | disposition home or self-care (01) ==
LOC: ED 10:17
DX: R11.2 Nausea with vomiting, unspecified (principal)
CPT/HCPCS: 36415; 80053; 81001; 81003; 83690; 85025; 87086; 96374; 99284

== ENCOUNTER 2020-03-02 12:01 | Emergency (ER) | payer MEDICARE, OTHER ==
[2020-03-02] MEDS ORDERED: PROMETHAZINE 25 MG/1 ML VIAL IM STA (13:59)
--- NOTE | 2020-03-02 14:08 | ED Physician Documentation ---
History of Present Illness - Stated complaint Stated Complaint: NAUSEA - Chief complaint Chief Complaint: Abd Pain - History obtained from History obtained from: Patient - History of Present Illness Timing: Chronic Pain level max: 0 Pain level now: 0 - Additonal information Additional information: 64 year old male with chronic nausea, vomiting. Smokes CBD daily. Nothing makes it better or worse. Has had this issue since 2011. No fever. no chills. no abd pain. Took zofran without relief today. Review of Systems Constitutional: denies: Fever, Chills Skin: denies: Rash Musculoskeletal: denies: Neck pain, Back pain Neurologic: denies: Headache PD PAST MEDICAL HISTORY - Past Medical History Cardiovascular: [place], Other Respiratory: Sleep apnea : Kidney stones Musculoskeletal: Chronic back pain - Past Surgical History Past Surgical History: Yes General: Appendectomy Ortho: Shoulder arthroplasty, Spine surgery - Present Medications Home Medications: Ambulatory Orders Medication Instructions Recorded Confirmed Ibuprofen 600 mg PO PRN PRN 10/15/18 06/04/19 Metoclopramide [Reglan] 10 mg PO ACHS #20 tablet 06/04/19 Ibuprofen [Motrin] 800 mg PO Q8H PRN #30 tablet 07/07/19 Promethazine [Phenergan] 25 mg PO Q6H PRN #10 tab 03/02/20 - Allergies Allergies/Adverse Reactions: Allergies Allergy/AdvReac Type Severity Reaction Status Date / Time amoxicillin Allergy Hives Verified 03/01/20 10:23 - Social History Does the pt smoke?: No Smoking Status: Never smoker Does the pt drink ETOH?: No Does the pt have substance abuse?: No - Immunizations Immunizations are current?: Yes - POLST Patient has POLST: No PD ED PE NORMAL - Vitals Vital signs reviewed: Yes - General General: Alert and oriented X 3, No acute distress - HEENT HEENT: Moist mucous membranes - Neck Neck: Supple, no meningeal sign - Cardiac Cardiac: RRR - Respiratory Respiratory: No respiratory distress, Clear bilaterally - Abdomen Abdomen: Soft, Non tender, Non distended - Derm Derm: Warm and dry - Neuro Neuro: Alert and oriented X 3 - Psych Psych: Normal mood, Normal affect Results - Vitals Vitals: Vital Signs - 24 hr 03/02/20 03/02/20 12:04 14:44 Temperature 36.5 C 36.6 C Heart Rate 58 L 61 Respiratory 18 16 Rate Blood Pressure 128/60 186/79 H O2 Saturation 99 99 Oxygen O2 Source Room air PD MEDICAL DECISION MAKING - ED course Complexity details: reviewed old records, re-evaluated patient, considered differential, d/w patient ED course: Patient with chronic nausea and vomiting. Given Phenergan and is tolerating p.o. without difficulty. Had normal laboratory testing yesterday. Abdomen is soft, nontender nondistended. This is no different than his usual presentation. No indication for imaging. Patient counseled regarding signs and symptoms for which I believe and urgent re-evaluation would be necessary. Patient with good understanding of and agreement to plan and is comfortable going home at this time This document was made in part using voice recognition software. While efforts are made to proofread this document, sound alike and grammatical errors may occur. Departure - Departure Disposition: 01 Home, Self Care Clinical Impression: Nausea and vomiting in adult Condition: Good Instructions: ED Nausea Vomiting Follow-Up: your,doctor in 1 week [Other] Prescriptions: Promethazine [Phenergan] 25 mg PO Q6H PRN #10 tab PRN Reason: Nausea / Vomiting Comments: Return if you worsen. You can use the Phenergan as needed for nausea and vomiting. Follow-up with your doctor for further care Discharge Date/Time: 03/02/20 15:23
[2020-03-02 14:45] VITALS: BP 186/79
== END 2020-03-02 15:23 | disposition home or self-care (01) ==
LOC: ED 12:01
DX: R11.2 Nausea with vomiting, unspecified (principal)
CPT/HCPCS: 96372; 99283; 99284

== ENCOUNTER 2020-03-05 08:04 | Emergency (ER) | payer MEDICARE, OTHER ==
[2020-03-05] MEDS ORDERED: SODIUM CHLORIDE 0.9% 1,000 ML IV STA (08:23)
[2020-03-05] MEDS ORDERED: HALOPERIDOL 5 MG/ML VIAL IVP STA (08:24)
[2020-03-05] MEDS ORDERED: IOVERSOL 320 100 ML VIAL IVP ONE ×2 (08:36→17:19)
--- NOTE | 2020-03-05 08:40 | ED Physician Documentation ---
History of Present Illness - Stated complaint Stated Complaint: N/V - Chief complaint Chief Complaint: Abd Pain - History obtained from History obtained from: Patient - History of Present Illness Timing: How many weeks ago (1) Pain level max: 0 Pain level now: 0 - Additonal information Additional information: 64-year-old male presents to the emergency department with chronic nausea and vomiting. He states that he took Zofran at home without relief, only saw him a few days ago he felt better after Phenergan so we prescribe this for home as well. He states he still has intermittent vomiting. Review of Systems Constitutional: denies: Fever, Chills Throat: denies: Sore throat Respiratory: denies: Cough GI: reports: Nausea, Vomiting. denies: Abdominal Pain, Diarrhea Skin: denies: Rash Musculoskeletal: denies: Neck pain, Back pain Neurologic: denies: Headache PD PAST MEDICAL HISTORY - Past Medical History Past Medical History: Yes Cardiovascular: [place], Other Respiratory: Sleep apnea : Kidney stones Musculoskeletal: Chronic back pain - Past Surgical History Past Surgical History: Yes General: Appendectomy Ortho: Shoulder arthroplasty, Spine surgery - Present Medications Home Medications: Ambulatory Orders Medication Instructions Recorded Confirmed Ibuprofen 600 mg PO PRN PRN 10/15/18 06/04/19 Metoclopramide [Reglan] 10 mg PO ACHS #20 tablet 06/04/19 Ibuprofen [Motrin] 800 mg PO Q8H PRN #30 tablet 07/07/19 Promethazine [Phenergan] 25 mg PO Q6H PRN #10 tab 03/02/20 - Allergies Allergies/Adverse Reactions: Allergies Allergy/AdvReac Type Severity Reaction Status Date / Time amoxicillin Allergy Hives Verified 03/05/20 08:17 - Social History Does the pt smoke?: No Smoking Status: Never smoker Does the pt drink ETOH?: No Does the pt have substance abuse?: No - Immunizations Immunizations are current?: Yes - POLST Patient has POLST: No PD ED PE NORMAL - Vitals Vital signs reviewed: Yes - General General: Alert and oriented X 3, No acute distress, Well developed/nourished - HEENT HEENT: PERRL, Moist mucous membranes - Neck Neck: Supple, no meningeal sign - Cardiac Cardiac: RRR, Strong equal pulses - Respiratory Respiratory: No respiratory distress, Clear bilaterally - Abdomen Abdomen: Soft, Non tender, Non distended - Derm Derm: Warm and dry, No rash - Extremities Extremities: No edema - Neuro Neuro: Alert and oriented X 3 - Psych Psych: Normal mood, Normal affect Results - Vitals Vitals: Vital Signs - 24 hr 03/05/20 03/05/20 08:09 10:18 Temperature 36.3 C L 36.9 C Heart Rate 64 91 Respiratory 16 18 Rate Blood Pressure 133/68 H 140/91 H O2 Saturation 96 96 Oxygen O2 Source Room air - Labs Labs: Laboratory Tests 03/05/20 03/05/20 03/05/20 08:26 08:26 09:59 WBC 7.8 RBC 3.88 L Hgb 12.8 L Hct 35.9 L MCV 92.5 MCH 33.0 H MCHC 35.7 RDW 12.0 Plt Count 265 MPV 10.0 Neut # (Auto) 4.7 Lymph # (Auto) 2.2 [place] # (Auto) 0.8 Eos # (Auto) 0.0 Baso # (Auto) 0.0 Absolute Nucleated RBC 0.00 Nucleated RBC % 0.0 Sodium 139 Potassium 3.1 L Chloride 99 L Carbon Dioxide 25 Anion Gap 15.0 H BUN 10 Creatinine 1.0 Estimated GFR (MDRD) 75 L Glucose 134 H Calcium 9.6 Total Bilirubin 2.0 H AST 23 ALT 22 Alkaline Phosphatase 64 Total Protein 6.8 Albumin 4.4 Globulin 2.4 Albumin/Globulin Ratio 1.8 Lipase 29 Urine Color YELLOW Urine Clarity CLEAR Urine pH 7.0 Ur Specific [place] 1.010 Urine Protein NEGATIVE Urine Glucose (UA) NEGATIVE Urine Ketones NEGATIVE Urine Occult Blood TRACE-INTA Urine Nitrite NEGATIVE Urine Bilirubin NEGATIVE Urine Urobilinogen 0.2 (NORMAL) Ur Leukocyte Esterase NEGATIVE Ur Microscopic Review NOT INDICATED Urine Culture Comments NOT INDICATED - Rads (name of study) CT abd/pelvis Radiology: Prelim report reviewed, EMP read contemporaneously, See rad report PD MEDICAL DECISION MAKING - ED course Complexity details: reviewed old records, reviewed results, re-evaluated patient, considered differential, d/w patient ED course: 64-year-old male with chronic nausea and vomiting. Given haloperidol here. Symptoms resolved. Tolerating p.o. without difficulty. IV fluids given. No significant lab abnormalities. No acute findings on CT scan. Patient is well- appearing, nontoxic. Afebrile. Patient counseled regarding signs and symptoms for which I believe and urgent re-evaluation would be necessary. Patient with good understanding of and agreement to plan and is comfortable going home at this time This document was made in part using voice recognition software. While efforts are made to proofread this document, sound alike and grammatical errors may occur. IMPRESSION: 1. No acute abnormality identified. No free fluid. 2. Previously seen small right inferior pole kidney stone is no longer present and has presumably passed through the urinary system. Acuity uncertain. No hydronephrosis. 3. Small bilateral nonobstructing kidney stones. 4. Diverticulosis without diverticulitis. 5. Suspect cholelithiasis. Departure - Departure Disposition: 01 Home, Self Care Clinical Impression: Nausea & vomiting Qualifiers: Vomiting type: unspecified Vomiting Intractability: non-intractable Qualified Code(s): R11.2 - Nausea with vomiting, unspecified Condition: Good Instructions: ED Nausea Vomiting Follow-Up: your,doctor in 1 week [Other] Comments: Continue the medications as previously prescribed. Return if you worsen. Discharge Date/Time: 03/05/20 10:31
[2020-03-05 08:48] LABS: BASOPHILS % (AUTO) 0.3 %; EOSINOPHILS % (AUTO) 0.5 %; HGB - HEMOGLOBIN 12.8 g/dL (14.0-18.0); LYMPHOCYTES # (AUTO) 2.2 10^3/uL (1.5-3.5); LYMPHOCYTES % (AUTO) 28.8 %; MEAN CORPUSCULAR HGB CONC 35.7 g/dL (32.0-36.0); MEAN CORPUSCULAR VOLUME 92.5 fL (80.0-94.0); MONOCYTES # (AUTO) 0.8 10^3/uL (0.0-1.0); MONOCYTES % (AUTO) 9.6 %; NEUTROPHILS # (AUTO) 4.7 10^3/uL (1.5-6.6); NEUTROPHILS % (AUTO) 60.4 %; PLT - PLATELET COUNT 265 10^3/uL (130-450); RED BLOOD COUNT 3.88 10^6/uL (4.70-6.10); WHITE BLOOD COUNT 7.8 x10^3/uL (4.8-10.8)
[2020-03-05 09:00] LABS: ALBUMIN 4.4 g/dL (3.2-5.5); ALBUMIN/GLOBULIN RATIO 1.8 (1.0-2.2); CALCIUM 9.6 mg/dL (8.5-10.3); TOTAL PROTEIN 6.8 g/dL (6.7-8.2)
--- NOTE | 2020-03-05 09:53 | CT Report ---
PROCEDURE: Abdomen/Pelvis W INDICATIONS: abd pain, vomiting CONTRAST: IV CONTRAST: Optiray 320 ml: 100 PO CONTRAST: *NO PO CONTRAST TECHNIQUE: After the administration of intravenous contrast, 5 mm thick sections acquired from the diaphragms to the symphysis. 5 mm thick coronal and sagittal reformats were acquired. For radiation dose reducti on, the following was used: automated exposure control, adjustment of mA and/or kV according to lucita ent size. COMPARISON: CT abdomen and pelvis without contrast 06/04/2019. FINDINGS: Image quality: Excellent. ABDOMEN: Lung bases: Lung bases are clear. Right lung base calcified granuloma. Heart size is normal. Solid organs: Liver and spleen are normal in size and enhancement. Gallbladder is not distended. Sm all calcified gallstone. Biliary system is non dilated. Pancreas enhances normally. No adrenal nod ules. Kidneys demonstrate normal size and enhancement, without hydronephrosis. 3 nonobstructing righ t kidney stones and one on the left. Largest stone on the right measures 0.4 cm, (6/37). The stone at the inferior pole the right kidney is no longer present. Stone at the inferior left kidney measures 3 mm. Peritoneum and bowel: Stomach is mostly decompressed. Bowel loops demonstrate normal wall thickness and caliber. Diverticulosis without diverticulitis. The appendix is absent. No free fluid or air. Nodes and vessels: No retroperitoneal or mesenteric adenopathy by size criteria. Aorta and inferior vena cava are normal in size. Mild calcified atherosclerotic plaque. Miscellaneous: No ventral hernias. PELVIS: Genitourinary: Bladder wall thickness is normal. Miscellaneous: No inguinal hernias or adenopathy. Bones: Sclerotic heterogeneous focus in the right ilium, (55), unchanged. No aggressive imaging fe atures. Moderate DDD. No vertebral body compression fractures. IMPRESSION: 1. No acute abnormality identified. No free fluid. 2. Previously seen small right inferior pole kidney stone is no longer present and has presumably pas sed through the urinary system. Acuity uncertain. No hydronephrosis. 3. Small bilateral nonobstructing kidney stones. 4. Diverticulosis without diverticulitis. 5. Suspect cholelithiasis. Reviewed by: Helio Vasquez MD on 03/05/2020 9:51 AM PST Approved by: Helio Vasquez MD on 03/05/2020 9:51 AM PST Station ID: [id number]
[2020-03-05 10:07] LABS: BILIRUBIN,URINE NEGATIVE (NEGATIVE); GLUCOSE, URINE (UA) NEGATIVE (NEGATIVE); KETONES,URINE (UA) NEGATIVE (NEGATIVE); LEUKOCYTE ESTERASE, URINE NEGATIVE (NEGATIVE); NITRITE,URINE NEGATIVE (NEGATIVE); OCCULT BLOOD,URINE TRACE-INTA (NEGATIVE); PROTEIN,URINE NEGATIVE (NEGATIVE); UROBILINOGEN,URINE 0.2 (NORMAL) E.U./dL (NORMAL)
[2020-03-05 10:08] LABS: CLARITY,URINE CLEAR (CLEAR)
[2020-03-05 10:19] VITALS: BP 140/91
== END 2020-03-05 10:31 | disposition home or self-care (01) ==
LOC: ED 08:04
DX: R11.2 Nausea with vomiting, unspecified (principal); N20.0 Calculus of kidney
CPT/HCPCS: 36415; 74177; 80053; 81003; 83690; 85025; 96361; 96374; 99283; 99284; Q9967; 81001; 87086

== ENCOUNTER 2020-06-18 15:23 | Emergency (ER) | payer MEDICARE, OTHER ==
[2020-06-18] MEDS ORDERED: SODIUM CHLORIDE 0.9% 1,000 ML IV STA (15:43)
[2020-06-18] MEDS ORDERED: ONDANSETRON 4 MG/2 ML VIAL IVP STA ×2 (15:43→18:26)
[2020-06-18 15:59] LABS: BASOPHILS % (AUTO) 0.2 %; EOSINOPHILS % (AUTO) 0.1 %; HCT - HEMATOCRIT 40.1 % (42.0-52.0); LYMPHOCYTES # (AUTO) 2.9 10^3/uL (1.5-3.5); LYMPHOCYTES % (AUTO) 24.8 %; MEAN CORPUSCULAR HEMOGLOBIN 32.7 pg (27.0-31.0); MEAN CORPUSCULAR HGB CONC 34.9 g/dL (32.0-36.0); MEAN CORPUSCULAR VOLUME 93.7 fL (80.0-94.0); MEAN PLATELET VOLUME 9.7 fL (7.4-11.4); MONOCYTES % (AUTO) 8.3 %; NEUTROPHILS # (AUTO) 7.7 10^3/uL (1.5-6.6); NEUTROPHILS % (AUTO) 66.3 %; PLT - PLATELET COUNT 300 10^3/uL (130-450); RED BLOOD COUNT 4.28 10^6/uL (4.70-6.10); RED CELL DISTRIBUTION WIDTH 12.3 % (12.0-15.0); WHITE BLOOD COUNT 11.6 x10^3/uL (4.8-10.8)
[2020-06-18 16:11] LABS: ALBUMIN 5.2 g/dL (3.2-5.5); BILIRUBIN,TOTAL 2.8 mg/dL (0.2-1.0); CALCIUM 10.2 mg/dL (8.5-10.3); CREATININE 1.1 mg/dL (0.6-1.2); POTASSIUM 3.5 mmol/L (3.5-5.0); TOTAL PROTEIN 7.8 g/dL (6.7-8.2)
--- NOTE | 2020-06-18 16:34 | ED Physician Documentation ---
History of Present Illness - Stated complaint Stated Complaint: VOMITING - Chief complaint Chief Complaint: Abd Pain - Additonal information Additional information: 64-year-old male presents the emergency department with 2 days of left lower quadrant abdominal pain and vomiting. He has no fevers melena or hematochezia. He states that he has had this recurrently for years and has been told at one point that he may have stomach migraines though he also had does have a history of renal stones and hematuria. He is unsure if this episode of pain resembles previous episodes of renal colic. Review of Systems Constitutional: denies: Fever, Chills Eyes: reports: Reviewed and negative Ears: reports: Reviewed and negative Nose: reports: Reviewed and negative Throat: reports: Reviewed and negative Cardiac: reports: Reviewed and negative Respiratory: reports: Reviewed and negative GI: reports: Abdominal Pain, Nausea, Vomiting. denies: Diarrhea, Hematemesis, Bloody / black stool : reports: Hematuria. denies: Dysuria, Frequency, Hesitancy Skin: reports: Reviewed and negative Musculoskeletal: reports: Reviewed and negative Neurologic: reports: Reviewed and negative PD PAST MEDICAL HISTORY - Past Medical History Cardiovascular: [place], Other Respiratory: Sleep apnea : Kidney stones Musculoskeletal: Chronic back pain - Past Surgical History Past Surgical History: Yes General: Appendectomy Ortho: Shoulder arthroplasty, Spine surgery - Present Medications Home Medications: Ambulatory Orders Medication Instructions Recorded Confirmed Ibuprofen 600 mg PO PRN PRN 10/15/18 06/04/19 Metoclopramide [Reglan] 10 mg PO ACHS #20 tablet 06/04/19 Ibuprofen [Motrin] 800 mg PO Q8H PRN #30 tablet 07/07/19 Promethazine [Phenergan] 25 mg PO Q6H PRN #10 tab 03/02/20 Ondansetron Odt [Zofran] 4 mg TL Q6H PRN #10 tab 06/18/20 Pantoprazole Sodium [Protonix] 40 mg PO DAILY #30 06/18/20 - Allergies Allergies/Adverse Reactions: Allergies Allergy/AdvReac Type Severity Reaction Status Date / Time amoxicillin Allergy Hives Verified 06/18/20 15:35 - Social History Does the pt smoke?: No Smoking Status: Never smoker Does the pt drink ETOH?: No Does the pt have substance abuse?: No - Immunizations Immunizations are current?: Yes - POLST Patient has POLST: No PD ED PE NORMAL - General General: Alert and oriented X 3, No acute distress, Well developed/nourished - Cardiac Cardiac: RRR, No murmur - Respiratory Respiratory: No respiratory distress, Clear bilaterally - Abdomen Abdomen: Normal bowel sounds, Soft. No: Non tender (Focal tenderness left lower quadrant without guarding or rebound. No flank or CVA tenderness. Negative McBurney's negative [place]'s.) - Back Back: No CVA TTP, No spinal TTP - Derm Derm: Normal color, Warm and dry, No rash - Extremities Extremities: No deformity, No tenderness to palpate, Normal ROM s pain - Neuro Neuro: Alert and oriented X 3, paedodontist 2-12 intact, No motor deficit Eye Opening: Spontaneous Motor: Obeys Commands Verbal: Oriented GCS Score: 15 Results - Vitals Vitals: Vital Signs - 24 hr 06/18/20 06/18/20 15:29 17:02 Temperature 36.8 C Heart Rate 68 81 Respiratory 20 20 Rate Blood Pressure 154/87 H 134/97 H O2 Saturation 100 96 Oxygen O2 Source Room air - Labs Labs: Laboratory Tests 06/18/20 06/18/20 06/18/20 15:51 15:51 16:50 WBC 11.6 H RBC 4.28 L Hgb 14.0 Hct 40.1 L MCV 93.7 MCH 32.7 H MCHC 34.9 RDW 12.3 Plt Count 300 MPV 9.7 Neut # (Auto) 7.7 H Lymph # (Auto) 2.9 [place] # (Auto) 1.0 Eos # (Auto) 0.0 Baso # (Auto) 0.0 Absolute Nucleated RBC 0.00 Nucleated RBC % 0.0 Sodium 136 Potassium 3.5 Chloride 98 L Carbon Dioxide 23 Anion Gap 15.0 H BUN 22 H Creatinine 1.1 Estimated GFR (MDRD) 67 L Glucose 120 H Calcium 10.2 Total Bilirubin 2.8 H AST 34 ALT 32 Alkaline Phosphatase 69 Total Protein 7.8 Albumin 5.2 Globulin 2.6 Albumin/Globulin Ratio 2.0 Lipase 26 Urine Color DARK YELLOW Urine Clarity CLEAR Urine pH 6.5 Ur Specific [place] 1.020 Urine Protein TRACE Urine Glucose (UA) NEGATIVE Urine Ketones 15 H Urine Occult Blood MODERATE H Urine Nitrite NEGATIVE Urine Bilirubin NEGATIVE Urine Urobilinogen 0.2 (NORMAL) Ur Leukocyte Esterase NEGATIVE Urine RBC 6-10 H Urine WBC 0-3 Ur Squamous Epith Cells NONE SEEN Urine Crystals 3-5 Calcium Oxalate Urine Bacteria Rare Ur Microscopic Review INDICATED Urine Culture Comments NOT INDICATED - Rads (name of study) CT abd Radiology: Final report received (Suspect gastroenteritis. Stable 2.5 cm sclerotic lesion in the right iliac bone can be further evaluated with nonemergent bone scan) PD MEDICAL DECISION MAKING - ED course Complexity details: reviewed results, re-evaluated patient, considered differential, d/w patient ED course: 64-year-old male presents the emergency department for evaluation of uncontrolled vomiting for 2 days. He does have a history of renal colic and frequently has hematuria. Today screening labs show very mild leukocytosis approaching 12,000 however no anemia. Renal and LFTs are preserved. His urine does show some hematuria but no secondary signs of infection. We did proceed with a CT of the abdomen and pelvis that does show a suspected gastroenteritis. There is a stable 2 and half centimeter sclerotic lesion in the right iliac bone that was discussed with the patient. He will follow up with his primary care doctor and get an outpatient bone study. Here in the emergency department this gentleman was given 2 L of crystalloid with marked improvement in his nausea as well as Zofran. I will write a prescription for Protonix as well as zofran for home use. He is tolerating sips of clear liquids. Emergent return precautions discussed for fevers, worsening pain and dehydration Departure - Departure Disposition: 01 Home, Self Care Clinical Impression: Bone lesion Vomiting Qualifiers: Vomiting type: unspecified Vomiting Intractability: non-intractable Nausea presence: with nausea Qualified Code(s): R11.2 - Nausea with vomiting, unspecified Condition: Stable Record reviewed to determine appropriate education?: Yes Instructions: Gastroenteritis Viral Ch Follow-Up: Ricci Platt DO [Primary Care Provider] - Prescriptions: Pantoprazole Sodium [Protonix] 40 mg PO DAILY #30 Ondansetron Odt [Zofran] 4 mg TL Q6H PRN #10 tab PRN Reason: Nausea / Vomiting Comments: Art you were seen today in the emergency department for vomiting. Reassuringly all of your labs look pretty normal. Your urine did show blood but there are no secondary signs of infection. We did do a CT of your abdomen and it shows suspected gastroenteritis or inflammation in the stomach. I have prescribed Protonix which is an acid medicine that should help reduce the acid secretion. I have also prescribed Zofran and nausea medicine. Please sip clear liquids frequently over the next 24 to 48 hours. As your nausea and vomiting improves then advance your diet with bananas, rice, applesauce or toast. Return to the emergency department if you find that you are having worsening s ymptoms, fevers uncontrolled vomiting or severe pain As we discussed the CT scan did show what is called a sclerotic lesion in your right hip. This has been seen on previous scans and appears stable though the radiologist does recommend that you see your primary care doctor and get a bone survey to make sure it is not a more worrisome cause.
[2020-06-18] MEDS ORDERED: IOVERSOL 320 100 ML VIAL IVP ONE ×2 (16:52→18:41)
[2020-06-18 17:33] LABS: GLUCOSE, URINE (UA) NEGATIVE (NEGATIVE); KETONES,URINE (UA) 15 mg/dL (NEGATIVE); LEUKOCYTE ESTERASE, URINE NEGATIVE (NEGATIVE); NITRITE,URINE NEGATIVE (NEGATIVE); OCCULT BLOOD,URINE MODERATE (NEGATIVE); PH,URINE 6.5 PH (5.0-7.5); PROTEIN,URINE TRACE mg/dL (NEGATIVE); UROBILINOGEN,URINE 0.2 (NORMAL) E.U./dL (NORMAL)
[2020-06-18 17:39] LABS: BILIRUBIN,URINE NEGATIVE (NEGATIVE); CLARITY,URINE CLEAR (CLEAR); ICTOTEST,URINE NEGATIVE
[2020-06-18 17:51] LABS: BACTERIA,URINE Rare /HPF (None Seen); CRYSTALS,URINE 3-5 Calcium Oxalate /LPF; SQUAMOUS EPITHELIAL CELL,UR NONE SEEN (<= Few); WBC,URINE 0-3 /HPF (0-3)
[2020-06-18] MEDS ORDERED: PANTOPRAZOLE 40 MG VIAL IVP STA (18:26)
[2020-06-18 18:48] VITALS: BP 130/88
--- NOTE | 2020-06-18 19:09 | CT Report ---
PROCEDURE: Abdomen/Pelvis W INDICATIONS: LLQ abd pain TECHNIQUE: After the administration of IV contrast, 5 mm thick sections acquired from the diaphragms to the symp hysis. 5 mm thick coronal and sagittal reformats were acquired. For radiation dose reduction, the f ollowing was used: automated exposure control, adjustment of mA and/or kV according to patient size. COMPARISON: CT abdomen pelvis 03/05/2020, 10/05/2013 FINDINGS: Image quality: Excellent. ABDOMEN: Lung bases: Lung bases are clear. Heart size is normal. Solid organs: Liver and spleen are normal in size and enhancement. Gallbladder demonstrates a punct ate luminal stones without wall thickening Biliary system is non dilated. Pancreas enhances normall y. No adrenal nodules. Kidneys demonstrate normal size and enhancement, without hydronephrosis. Th ere are 2 nonobstructing right and one nonobstructing left renal calcification. The largest stone is on the right measuring 4 mm. Peritoneum and bowel: Bowel loops demonstrate normal wall thickness and caliber. No free fluid or a ir. Colonic diverticula are present. There is mild appearance of mucosal enhancement and wall thicke becky of the stomach and small bowel. Nodes and vessels: No retroperitoneal or mesenteric adenopathy by size criteria. Aorta and inferior vena cava are normal in size. Miscellaneous: No ventral hernias. PELVIS: Genitourinary: Bladder wall thickness is normal. Miscellaneous: No inguinal hernias or adenopathy. Bones: No suspicious bony lesions. No vertebral body compression fractures. Unchanged right iliac sclerotic focus since 2013. IMPRESSION: 1. Mild appearance of enhancement thickening of the stomach and small bowel which can be seen with ga stroenteritis. The above findings are concordant with preliminary report. Reviewed by: Cherry Perez MD on 06/18/2020 6:08 PM [facility] Approved by: Cherry Perez MD on 06/18/2020 6:08 PM [facility] Station ID: [id number]
== END 2020-06-18 18:48 | disposition home or self-care (01) ==
LOC: ED 15:23
DX: M89.9 Disorder of bone, unspecified (principal); R11.2 Nausea with vomiting, unspecified
CPT/HCPCS: 36415; 74177; 80053; 81001; 83690; 85025; 96361; 96374; 96375; 96376; 99283; 99284; Q9967; 81003; 87086

== ENCOUNTER 2020-06-20 08:43 | Emergency (ER) | payer MEDICARE, OTHER ==
[2020-06-20] MEDS ORDERED: FAMOTIDINE 20 MG/2 ML VIAL IVP STA ×2 (08:53→08:57)
[2020-06-20] MEDS ORDERED: DROPERIDOL 5 MG/2 ML VIAL IVP STA ×2 (08:53→08:57)
[2020-06-20] MEDS ORDERED: SODIUM CHLORIDE 0.9% 1,000 ML IV STA ×3 (08:53→09:50)
--- NOTE | 2020-06-20 08:53 | ED Physician Documentation ---
PD HPI NVD - Stated complaint Stated Complaint: VOMITTING - History obtained from History obtained from: Patient
[2020-06-20 09:29] LABS: ALBUMIN 4.6 g/dL (3.2-5.5); ALBUMIN/GLOBULIN RATIO 1.8 (1.0-2.2); BILIRUBIN,TOTAL 3.3 mg/dL (0.2-1.0); CALCIUM 9.9 mg/dL (8.5-10.3); CREATININE 1.2 mg/dL (0.6-1.2); MAGNESIUM 1.8 mg/dL (1.7-2.8); POTASSIUM 3.8 mmol/L (3.5-5.0); TOTAL PROTEIN 7.2 g/dL (6.7-8.2)
--- NOTE | 2020-06-20 11:20 | ED Physician Documentation ---
PD HPI NVD - Stated complaint Stated Complaint: VOMITTING - Chief complaint Chief Complaint: Abd Pain - History obtained from History obtained from: Patient - History of Present Illness Timing - onset: How many days ago (several) Timing - duration: Days (several) Timing - details: Abrupt onset, Still present, Waxing and waning (Symptoms have improved to some with ondansetron orally. However still has enough nausea and vomiting. Denies diarrhea.) Similar symptoms before: No diagnosis (He has had this episodically in the past. No firm diagnosis for it. Does have history of some cannabis use so consider hyperemesis from that. No history of diabetes. Has not appeared to be bowel obstruction or such in the past.) Recently seen: Emergency Dept (Seen a few days ago in the ER at the onset of the symptoms. Treated with fluids and Zofran here with improvement. Prescribed Zofran which has not really helped.) Review of Systems Constitutional: reports: Myalgias. denies: Fever, Chills Nose: denies: Rhinorrhea / runny nose, Congestion Throat: denies: Sore throat Respiratory: denies: Cough GI: reports: Abdominal Pain (just upper abd muscles from vomiting), Nausea, Vomiting. denies: Abdominal Swelling, Constipation, Diarrhea, Hematemesis : denies: Dysuria, Frequency Neurologic: reports: Generalized weakness. denies: Near syncope, Altered mental status, Headache PD PAST MEDICAL HISTORY - Past Medical History Past Medical History: Yes Cardiovascular: None Respiratory: Sleep apnea Neuro: Peripheral neuropathy Endocrine/Autoimmune: None GI: None : Kidney stones HEENT: None Psych: Depression, Anxiety Musculoskeletal: Osteoarthritis, Chronic back pain Derm: None - Past Surgical History Past Surgical History: Yes General: Appendectomy Ortho: Carpal Tunnel surgery - Present Medications Home Medications: Ambulatory Orders Medication Instructions Recorded Confirmed Famotidine [Pepcid] 20 mg PO DAILY 06/20/20 06/20/20 Ondansetron Odt [Zofran Odt] 4 - 8 mg PO Q6H PRN #20 06/20/20 Ondansetron Odt [Zofran Odt] 4 mg TL Q6H PRN 06/20/20 06/20/20 Promethazine [Phenergan] 25 mg PO Q6H PRN #20 tab 06/20/20 - Allergies Allergies/Adverse Reactions: Allergies Allergy/AdvReac Type Severity Reaction Status Date / Time amoxicillin Allergy Rash Verified 06/20/20 08:52 - Social History Does the pt smoke?: No Smoking Status: Never smoker Does the pt drink ETOH?: No Does the pt have substance abuse?: Yes Substance Use and Type: Marijuana - Immunizations Immunizations are current?: Yes PD ED PE NORMAL - Vitals Vital signs reviewed: Yes - General General: Alert and oriented X 3, No acute distress, Well developed/nourished - HEENT HEENT: Pharynx benign. No: Moist mucous membranes - Neck Neck: Supple, no meningeal sign, No adenopathy - Cardiac Cardiac: RRR, No murmur - Respiratory Respiratory: Clear bilaterally - Abdomen Abdomen: Normal bowel sounds, Soft, Non distended, No organomegaly, Other (Mild tenderness epigastric without any guarding percussion or rebound. Right upper quadrant is not tender.) - Back Back: No CVA TTP - Derm Derm: Warm and dry. No: Normal color (mild pallor) - Extremities Extremities: No edema - Neuro Neuro: Alert and oriented X 3, No motor deficit, Normal speech Results - Vitals Vitals: Vital Signs - 24 hr 06/20/20 06/20/20 06/20/20 08:53 09:10 09:28 Temperature 36.8 C Heart Rate 66 57 L 57 L Respiratory 24 22 18 Rate Blood Pressure 167/89 H 143/77 H 160/82 H O2 Saturation 99 98 98 06/20/20 06/20/20 10:30 11:22 Temperature Heart Rate 83 69 Respiratory 18 18 Rate Blood Pressure 160/70 H 159/75 H O2 Saturation 95 98 Oxygen O2 Source Room air - Labs Labs: Laboratory Tests 06/20/20 09:00 Sodium 140 Potassium 3.8 Chloride 103 Carbon Dioxide 22 Anion Gap 15.0 H BUN 19 Creatinine 1.2 Estimated GFR (MDRD) 63 L Glucose 117 H Calcium 9.9 Magnesium 1.8 Total Bilirubin 3.3 H AST 53 H ALT 31 Alkaline Phosphatase 64 Total Protein 7.2 Albumin 4.6 Globulin 2.6 Albumin/Globulin Ratio 1.8 Lipase 26 PD MEDICAL DECISION MAKING - ED course Complexity details: reviewed old records (recent ER visit for same.), re- evaluated patient (Much improved with IV fluids and droperidol. Also given famotidine. He is now taking liquids orally well.), considered differential (Consider gastritis versus gastroenteritis there are no diarrhea. Unlikely biliary. Is not distended and does not seem obstructive. Possible medication related.), d/w patient Departure - Departure Disposition: 01 Home, Self Care Clinical Impression: Nausea and vomiting Qualifiers: Vomiting type: unspecified Vomiting Intractability: intractable Qualified Code(s): R11.2 - Nausea with vomiting, unspecified Condition: Stable Record reviewed to determine appropriate education?: Yes Instructions: ED Nausea Vomiting Prescriptions: Promethazine [Phenergan] 25 mg PO Q6H PRN #20 tab PRN Reason: Nausea / Vomiting Ondansetron Odt [Zofran Odt] 4 - 8 mg PO Q6H PRN #20 PRN Reason: Nausea / Vomiting Comments: [place] food initially. Small frequent fluids to maintain hydration. Use ondansetron or promethazine as needed for nausea. Continue acid reducing medici marito. Recheck if not improved well over the next couple of days. Discharge Date/Time: 06/20/20 11:25
[2020-06-20 11:22] VITALS: BP 159/75
== END 2020-06-20 11:25 | disposition home or self-care (01) ==
LOC: EDBD → MERGE 08:43 → ED 08:43
DX: R11.2 Nausea with vomiting, unspecified (principal)
CPT/HCPCS: 36415; 80053; 83690; 83735; 96374; 99284

== ENCOUNTER 2020-12-01 15:10 | Emergency (ER) | payer MEDICARE, OTHER ==
[2020-12-01 15:41] LABS: BASOPHILS % (AUTO) 0.3 %; EOSINOPHILS # (AUTO) 0.1 10^3/uL (0.0-0.7); HCT - HEMATOCRIT 39.2 % (42.0-52.0); HGB - HEMOGLOBIN 13.7 g/dL (14.0-18.0); LYMPHOCYTES # (AUTO) 3.4 10^3/uL (1.5-3.5); LYMPHOCYTES % (AUTO) 39.8 %; MEAN CORPUSCULAR HEMOGLOBIN 32.7 pg (27.0-31.0); MEAN CORPUSCULAR HGB CONC 34.9 g/dL (32.0-36.0); MEAN CORPUSCULAR VOLUME 93.6 fL (80.0-94.0); MEAN PLATELET VOLUME 9.4 fL (7.4-11.4); MONOCYTES # (AUTO) 0.7 10^3/uL (0.0-1.0); NEUTROPHILS # (AUTO) 4.4 10^3/uL (1.5-6.6); NEUTROPHILS % (AUTO) 50.8 %; PLT - PLATELET COUNT 251 10^3/uL (130-450); RED BLOOD COUNT 4.19 10^6/uL (4.70-6.10); RED CELL DISTRIBUTION WIDTH 12.3 % (12.0-15.0); WHITE BLOOD COUNT 8.6 x10^3/uL (4.8-10.8)
[2020-12-01 15:54] LABS: ALBUMIN 4.6 g/dL (3.2-5.5); ALBUMIN/GLOBULIN RATIO 1.8 (1.0-2.2); BILIRUBIN,TOTAL 1.1 mg/dL (0.2-1.0); TOTAL PROTEIN 7.1 g/dL (6.7-8.2)
[2020-12-01 16:09] LABS: BILIRUBIN,URINE NEGATIVE (NEGATIVE); GLUCOSE, URINE (UA) NEGATIVE (NEGATIVE); KETONES,URINE (UA) NEGATIVE (NEGATIVE); LEUKOCYTE ESTERASE, URINE NEGATIVE (NEGATIVE); NITRITE,URINE NEGATIVE (NEGATIVE); OCCULT BLOOD,URINE NEGATIVE (NEGATIVE); PH,URINE 7.5 PH (5.0-7.5); PROTEIN,URINE NEGATIVE (NEGATIVE); UROBILINOGEN,URINE 0.2 (NORMAL) E.U./dL (NORMAL)
[2020-12-01 16:11] LABS: CLARITY,URINE CLEAR (CLEAR)
[2020-12-01] MEDS ORDERED: SODIUM CHLORIDE 0.9% 1,000 ML IV STA (16:29)
--- NOTE | 2020-12-01 16:44 | ED Physician Documentation ---
History of Present Illness - Stated complaint Stated Complaint: VOMITING,LIGHTHEADED,DIZZY,KEENE - Chief complaint Chief Complaint: General - History obtained from History obtained from: Patient - History of Present Illness Timing: Today Pain level max: 5 Pain level now: 3 - Additonal information Additional information: 65-year-old male states that he has been outside working and has not been drinking water. He states he has a "bad habit" of doing this. He states that when he gets dehydrated he feels weak, nauseated and has a headache. Normally feels better with IV fluids. Not having any vomiting. No abdominal pain. Worse with standing, better with lying down. Review of Systems Ten Systems: 10 systems reviewed and negative Constitutional: denies: Fever, Chills Ears: denies: Ear pain Nose: denies: Rhinorrhea / runny nose, Congestion Respiratory: denies: Cough GI: reports: Nausea. denies: Abdominal Pain, Vomiting, Constipation, Diarrhea, Hematemesis, Bloody / black stool : denies: Dysuria, Frequency, Hesitancy Skin: denies: Rash Musculoskeletal: denies: Neck pain, Back pain Neurologic: reports: Headache (Mild, right-sided, gradual onset, dull and aching.) PD PAST MEDICAL HISTORY - Past Medical History Past Medical History: Yes Cardiovascular: None, [place], Other Respiratory: Sleep apnea Neuro: Peripheral neuropathy Endocrine/Autoimmune: None GI: None : Kidney stones HEENT: None Psych: Depression, Anxiety Musculoskeletal: Osteoarthritis, Chronic back pain Derm: None - Past Surgical History Past Surgical History: Yes General: Appendectomy Ortho: Carpal Tunnel surgery, Shoulder arthroplasty, Spine surgery - Present Medications Home Medications: Ambulatory Orders Medication Instructions Recorded Confirmed Ibuprofen 600 mg PO PRN PRN 10/15/18 06/04/19 Metoclopramide [Reglan] 10 mg PO ACHS #20 tablet 06/04/19 Ibuprofen [Motrin] 800 mg PO Q8H PRN #30 tablet 07/07/19 Promethazine [Phenergan] 25 mg PO Q6H PRN #10 tab 03/02/20 Ondansetron Odt [Zofran] 4 mg TL Q6H PRN #10 tab 06/18/20 Pantoprazole Sodium [Protonix] 40 mg PO DAILY #30 06/18/20 Famotidine [Pepcid] 20 mg PO DAILY 06/20/20 06/20/20 Ondansetron Odt [Zofran Odt] 4 - 8 mg PO Q6H PRN #20 06/20/20 Ondansetron Odt [Zofran Odt] 4 mg TL Q6H PRN 06/20/20 06/20/20 Promethazine [Phenergan] 25 mg PO Q6H PRN #20 tab 06/20/20 - Allergies Allergies/Adverse Reactions: Allergies Allergy/AdvReac Type Severity Reaction Status Date / Time amoxicillin Allergy Hives Verified 12/01/20 15:13 - Social History Does the pt smoke?: No Smoking Status: Never smoker Does the pt drink ETOH?: No Does the pt have substance abuse?: Yes - Immunizations Immunizations are current?: Yes - POLST Patient has POLST: No PD ED PE NORMAL - Vitals Vital signs reviewed: Yes - General General: Alert and oriented X 3, No acute distress, Well developed/nourished - HEENT HEENT: PERRL, Other (Dry lips and tongue) - Neck Neck: Supple, no meningeal sign - Cardiac Cardiac: RRR, Strong equal pulses - Respiratory Respiratory: No respiratory distress, Clear bilaterally - Abdomen Abdomen: Soft, Non tender, Non distended - Derm Derm: Warm and dry - Extremities Extremities: No edema - Neuro Neuro: Alert and oriented X 3 - Psych Psych: Normal mood, Normal affect Results - Vitals Vitals: Vital Signs - 24 hr 12/01/20 12/01/20 15:13 17:16 Temperature 36.5 C Heart Rate 60 64 Respiratory 16 16 Rate Blood Pressure 135/68 H 94/77 O2 Saturation 99 98 Oxygen O2 Source Room air - EKG (time done) 1538 Rate: Rate (enter#) (59) Rhythm: NSR [place]: Normal Intervals: Normal [place] QRS: Normal Ischemia: Normal ST segments - Labs Labs: Laboratory Tests 12/01/20 12/01/20 12/01/20 15:36 15:36 15:55 WBC 8.6 RBC 4.19 L Hgb 13.7 L Hct 39.2 L MCV 93.6 MCH 32.7 H MCHC 34.9 RDW 12.3 Plt Count 251 MPV 9.4 Neut # (Auto) 4.4 Lymph # (Auto) 3.4 [place] # (Auto) 0.7 Eos # (Auto) 0.1 Baso # (Auto) 0.0 Absolute Nucleated RBC 0.00 Nucleated RBC % 0.0 Sodium 138 Potassium 4.0 Chloride 103 Carbon Dioxide 25 Anion Gap 10.0 BUN 16 Creatinine 1.0 Estimated GFR (MDRD) 75 L Glucose 101 H Calcium 10.0 Total Bilirubin 1.1 H AST 17 ALT 17 Alkaline Phosphatase 68 Total Protein 7.1 Albumin 4.6 Globulin 2.5 Albumin/Globulin Ratio 1.8 Lipase 29 Urine Color YELLOW Urine Clarity CLEAR Urine pH 7.5 Ur Specific [place] 1.020 Urine Protein NEGATIVE Urine Glucose (UA) NEGATIVE Urine Ketones NEGATIVE Urine Occult Blood NEGATIVE Urine Nitrite NEGATIVE Urine Bilirubin NEGATIVE Urine Urobilinogen 0.2 (NORMAL) Ur Leukocyte Esterase NEGATIVE Ur Microscopic Review NOT INDICATED Urine Culture Comments NOT INDICATED PD MEDICAL DECISION MAKING - ED course Complexity details: reviewed results, re-evaluated patient, considered differential, d/w patient ED course: Patient feels much better after IVF. symptoms resolved. Patient counseled regarding signs and symptoms for which I believe and urgent re-evaluation would be necessary. Patient with good understanding of and agreement to plan and is co mfortable going home at this time This document was made in part using voice recognition software. While efforts are made to proofread this document, sound alike and grammatical errors may occur. Departure - Departure Disposition: 01 Home, Self Care Clinical Impression: Dehydration Condition: Good Instructions: ED Dehydration Follow-Up: Ricci Platt DO [Primary Care Provider] - Within 1 week Comments: drink plenty of fluids. Return if you worsen. Follow-up with your doctor for further care. Discharge Date/Time: 12/01/20 17:59
[2020-12-01 17:35] VITALS: BP 94/77
== END 2020-12-01 17:59 | disposition home or self-care (01) ==
LOC: ED 15:10
DX: E86.0 Dehydration (principal)
CPT/HCPCS: 36415; 80053; 81001; 81003; 83690; 85025; 87086; 93005; 96360; 99284

== ENCOUNTER 2021-02-09 13:51 | Emergency (ER) | payer MEDICARE, OTHER ==
--- NOTE | 2021-02-09 15:57 | ED Physician Documentation ---
PD HPI NVD - Stated complaint Stated Complaint: VOMITING - Chief complaint Chief Complaint: Abd Pain - History obtained from History obtained from: Patient - History of Present Illness Timing - onset: Yesterday Timing - duration: Days (1) Timing - details: Abrupt onset, Still present Associated symptoms: No: Fever, Abdominal pain, Chest pain, Hematemesis, Melena Contributing factors: Other (stress). No: Sick contact, Bad food, Travel, Recent antibiotics, Alcohol use, Anticoagulated, Diabetes Improved by: Vomiting Similar symptoms before: Diagnosis (abdominal migraine) Recently seen: Not recently seen - Additonal information Additional information: 65-year-old male with a history of recurrent vomiting and dehydration related to stress has been diagnosed with abdominal migraines. He states that he began to have symptoms again yesterday morning and he states this happens to him about every 6 months. He will have uncontrolled vomiting for seemingly no reason. He does state that he has had this definitely related to stress and to dehydration. He does use cannabis. He has not had relief with hot showers or warm baths and he has had improvement in his symptoms with Phenergan. Review of Systems Constitutional: denies: Fever Eyes: denies: Decreased vision Ears: denies: Ear pain Nose: denies: Rhinorrhea / runny nose, Congestion Throat: denies: Sore throat Cardiac: denies: Chest pain / pressure, Palpitations Respiratory: denies: Dyspnea, Cough GI: reports: Abdominal Pain (cramping), Nausea, Vomiting, Diarrhea : denies: Dysuria, Frequency PD PAST MEDICAL HISTORY - Past Medical History Cardiovascular: None, [place], Other Respiratory: Sleep apnea Neuro: Peripheral neuropathy Endocrine/Autoimmune: None GI: None : Kidney stones HEENT: None Psych: Depression, Anxiety Musculoskeletal: Osteoarthritis, Chronic back pain Derm: None - Past Surgical History Past Surgical History: Yes General: Appendectomy Ortho: Carpal Tunnel surgery, Shoulder arthroplasty, Spine surgery - Present Medications Home Medications: Ambulatory Orders Medication Instructions Recorded Confirmed Ibuprofen 600 mg PO PRN PRN 10/15/18 06/04/19 Metoclopramide [Reglan] 10 mg PO ACHS #20 tablet 06/04/19 Ibuprofen [Motrin] 800 mg PO Q8H PRN #30 tablet 07/07/19 Promethazine [Phenergan] 25 mg PO Q6H PRN #10 tab 03/02/20 Ondansetron Odt [Zofran] 4 mg TL Q6H PRN #10 tab 06/18/20 Pantoprazole Sodium [Protonix] 40 mg PO DAILY #30 06/18/20 Famotidine [Pepcid] 20 mg PO DAILY 06/20/20 06/20/20 Ondansetron Odt [Zofran Odt] 4 - 8 mg PO Q6H PRN #20 06/20/20 Ondansetron Odt [Zofran Odt] 4 mg TL Q6H PRN 06/20/20 06/20/20 Promethazine [Phenergan] 25 mg PO Q6H PRN #20 tab 06/20/20 - Allergies Allergies/Adverse Reactions: Allergies Allergy/AdvReac Type Severity Reaction Status Date / Time amoxicillin Allergy Hives Verified 02/09/21 14:27 - Social History Does the pt smoke?: No Smoking Status: Never smoker Does the pt drink ETOH?: No Does the pt have substance abuse?: Yes - Immunizations Immunizations are current?: Yes - POLST Patient has POLST: No PD ED PE NORMAL - Vitals Vital signs reviewed: Yes (normal) - General General: Alert and oriented X 3, Well developed/nourished - HEENT HEENT: Atraumatic, PERRL, EOMI - Neck Neck: Supple, no meningeal sign, No bony TTP - Cardiac Cardiac: RRR, No murmur - Respiratory Respiratory: No respiratory distress, Clear bilaterally - Abdomen Abdomen: Soft, Non tender - Back Back: No CVA TTP, No spinal TTP - Derm Derm: Normal color, Warm and dry, No rash - Extremities Extremities: No deformity, No edema - Neuro Neuro: Alert and oriented X 3, 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, No motor deficit, No sensory deficit, Normal speech Eye Opening: Spontaneous Motor: Obeys Commands Verbal: Oriented GCS Score: 15 - Psych Psych: Normal mood, Normal affect Results - Vitals Vitals: Vital Signs - 24 hr 02/09/21 02/09/21 14:23 16:26 Temperature 36.9 C Heart Rate 78 76 Respiratory 14 18 Rate Blood Pressure 113/73 136/106 H O2 Saturation 98 96 Oxygen O2 Source Room air Procedures - IVC sono (time) 1550 Bedside IVC sono: IVC measures (cm) (1.21), IVC collapsed c insp (cm) (complete), Dehydration (est 1 liter deficit) PD MEDICAL DECISION MAKING - ED course Complexity details: reviewed old records, reviewed results, re-evaluated patient, considered differential, d/w patient ED course: 65-year-old male with a history of abdominal migraines has developed nausea and vomiting similar to what he has had with previous episodes. This started out with abdominal cramping and diarrhea followed by vomiting. Symptoms started yesterday. He has had this happen to him about every 6 months and he has been into the market development manager and he has been diagnosed with abdominal migraine. He does use cannabis he does not have the other salient features of cannabis hyperemesis. He does not have the features of typical antiemetics being ineffective and he does not have relief with a warm shower or hot bath. Today he is treated with IV saline and phenergan. Departure - Departure Disposition: 01 Home, Self Care Clinical Impression: Dehydration Nausea & vomiting Qualifiers: Vomiting type: unspecified Vomiting Intractability: non-intractable Qualified Code(s): R11.2 - Nausea with vomiting, unspecified Condition: Stable Instructions: ED Diet Vomiting Diarrhea, ED Nausea Vomiting Follow-Up: AZAM ANNE [Physician No Access] -
[2021-02-09] MEDS ORDERED: SODIUM CHLORIDE 0.9% 1,000 ML IV STA ×2 (16:01→17:04)
[2021-02-09] MEDS ORDERED: PROMETHAZINE INJ 25 MG in SODIUM CHLORIDE 0.9% 50 ML IV STA (16:02)
[2021-02-09 17:46] VITALS: BP 132/99
== END 2021-02-09 17:47 | disposition home or self-care (01) ==
LOC: ED 13:51
DX: R11.2 Nausea with vomiting, unspecified (principal); R19.7 Diarrhea, unspecified; G43.D0 Abdominal migraine, not intractable
CPT/HCPCS: 96365; 99284; J7040

== ENCOUNTER 2021-02-10 08:03 | Emergency (ER) | payer MEDICARE, OTHER ==
[2021-02-10 08:19] VITALS: BP 169/81
--- NOTE | 2021-02-10 10:25 | ED Physician Documentation ---
PD HPI NVD - Stated complaint Stated Complaint: VOMITING - Chief complaint Chief Complaint: Abd Pain - History obtained from History obtained from: Patient - History of Present Illness Associated symptoms: Abdominal pain, Loss of appetite. No: Fever, Near syncope / syncope Contributing factors: No: Sick contact, Bad food Similar symptoms before: No diagnosis (he states various diagnoses from GI and Neurology (abd migraines, gastroparesis, cyclic vomiting)) Recently seen: Emergency Dept (yesterday, and several times in the past few months. he says felt better in ER but return of pain/vomiting within few hours of getting home.) Review of Systems Constitutional: denies: Fever, Chills Nose: denies: Rhinorrhea / runny nose, Congestion Throat: denies: Sore throat Respiratory: denies: Cough GI: reports: Abdominal Pain, Nausea, Vomiting. denies: Diarrhea, Hematemesis, Bloody / black stool : denies: Dysuria Musculoskeletal: denies: Neck pain, Back pain Neurologic: reports: Generalized weakness. denies: Near syncope PD PAST MEDICAL HISTORY - Past Medical History Cardiovascular: None, [place], Other Respiratory: Sleep apnea Neuro: Peripheral neuropathy Endocrine/Autoimmune: None GI: None : Kidney stones HEENT: None Psych: Depression, Anxiety Musculoskeletal: Osteoarthritis, Chronic back pain Derm: None - Past Surgical History Past Surgical History: Yes General: Appendectomy Ortho: Carpal Tunnel surgery, Shoulder arthroplasty, Spine surgery - Present Medications Home Medications: Ambulatory Orders Medication Instructions Recorded Confirmed Promethazine [Phenergan] 25 mg PO Q6H PRN #20 tab 02/10/21 - Allergies Allergies/Adverse Reactions: Allergies Allergy/AdvReac Type Severity Reaction Status Date / Time amoxicillin Allergy Hives Verified 02/10/21 08:19 - Social History Does the pt smoke?: No Smoking Status: Never smoker Does the pt drink ETOH?: No Does the pt have substance abuse?: Yes - Immunizations Immunizations are current?: Yes - POLST Patient has POLST: No PD ED PE NORMAL - Vitals Vital signs reviewed: Yes - General General: Alert and oriented X 3, Well developed/nourished, Other (appears uncomfortable and is holding emesis bag with some liquid GI contents in it, no noted coffee ground appearance. ) - HEENT HEENT: Moist mucous membranes - Neck Neck: Supple, no meningeal sign, No adenopathy - Cardiac Cardiac: RRR, No murmur - Respiratory Respiratory: Clear bilaterally - Abdomen Abdomen: Soft, Non distended, No organomegaly, Other (minimally tender mid abd to epigastric area without guarding nor percussion/rebound. ). No: Normal bowel sounds (decreased) - Derm Derm: Normal color, Warm and dry - Neuro Neuro: Alert and oriented X 3, No motor deficit, Normal speech Results - Vitals Vitals: Vital Signs - 24 hr 02/10/21 02/10/21 08:17 12:41 Temperature 36.0 C L 37.3 C Heart Rate 61 Respiratory 14 Rate Blood Pressure 169/81 H O2 Saturation 98 Oxygen O2 Source Room air PD MEDICAL DECISION MAKING - ED course Complexity details: reviewed old records, re-evaluated patient (improved well with IV fluids/meds. He is getting dressed and wanting to go. ), considered differential, d/w patient Departure - Departure Disposition: 01 Home, Self Care Clinical Impression: Cyclical vomiting with nausea Condition: Stable Instructions: ED Nausea Vomiting Follow-Up: Ricci Platt DO [Primary Care Provider] - Prescriptions: Promethazine [Phenergan] 25 mg PO Q6H PRN #20 tab PRN Reason: Nausea / Vomiting Comments: Continue your usual medications. Nausea medicine if needed. Return if persistent vomiting despite home medications. Discharge Date/Time: 02/10/21 13:24
[2021-02-10] MEDS ORDERED: SODIUM CHLORIDE 0.9% 1,000 ML IV STA (10:37)
[2021-02-10] MEDS ORDERED: DROPERIDOL 5 MG/2 ML VIAL IVP STA ×2 (10:38→12:05)
[2021-02-10] MEDS ORDERED: FAMOTIDINE 20 MG/2 ML VIAL IVP STA (10:39)
[2021-02-10] MEDS ORDERED: DEXAMETHASONE 10 MG/ML VIAL IVP STA (10:39)
== END 2021-02-10 13:24 | disposition home or self-care (01) ==
LOC: ED 08:03
DX: R11.15 Cyclical vomiting syndrome unrelated to migraine (principal)
CPT/HCPCS: 36415; 96374; 96375; 96376; 99283

== ENCOUNTER 2021-02-14 12:14 | Emergency (ER) | payer MEDICARE, OTHER ==
[2021-02-14 12:46] LABS: BASOPHILS % (AUTO) 0.3 %; EOSINOPHILS % (AUTO) 0.2 %; HCT - HEMATOCRIT 38.6 % (42.0-52.0); HGB - HEMOGLOBIN 13.4 g/dL (14.0-18.0); LYMPHOCYTES # (AUTO) 1.8 10^3/uL (1.5-3.5); LYMPHOCYTES % (AUTO) 19.2 %; MEAN CORPUSCULAR HEMOGLOBIN 32.2 pg (27.0-31.0); MEAN CORPUSCULAR HGB CONC 34.7 g/dL (32.0-36.0); MEAN CORPUSCULAR VOLUME 92.8 fL (80.0-94.0); MEAN PLATELET VOLUME 9.6 fL (7.4-11.4); MONOCYTES # (AUTO) 0.6 10^3/uL (0.0-1.0); MONOCYTES % (AUTO) 6.1 %; NEUTROPHILS # (AUTO) 7.1 10^3/uL (1.5-6.6); NEUTROPHILS % (AUTO) 73.9 %; PLT - PLATELET COUNT 287 10^3/uL (130-450); RED BLOOD COUNT 4.16 10^6/uL (4.70-6.10); RED CELL DISTRIBUTION WIDTH 12.4 % (12.0-15.0); WHITE BLOOD COUNT 9.6 x10^3/uL (4.8-10.8)
[2021-02-14 12:59] LABS: ALBUMIN 4.7 g/dL (3.2-5.5); ALBUMIN/GLOBULIN RATIO 1.8 (1.0-2.2); CALCIUM 9.5 mg/dL (8.5-10.3); CREATININE 1.1 mg/dL (0.6-1.2); POTASSIUM 3.2 mmol/L (3.5-5.0); TOTAL PROTEIN 7.3 g/dL (6.7-8.2)
[2021-02-14] MEDS ORDERED: SODIUM CHLORIDE 0.9% 1,000 ML IV STA (13:09)
[2021-02-14] MEDS ORDERED: DROPERIDOL 5 MG/2 ML VIAL IVP STA (13:09)
--- NOTE | 2021-02-14 13:10 | ED Physician Documentation ---
PD HPI NVD - Stated complaint Stated Complaint: VOMITING,CHILLS - Chief complaint Chief Complaint: Abd Pain - History obtained from History obtained from: Patient - Additonal information Additional information: This is a 65-year-old male who is past medical history of recurrent nausea and vomiting thought secondary to abdominal migraines per patient report. He has been seen here numerous times for similar symptoms in the past. He presents today with ongoing symptoms of nausea and vomiting, this episode started about a week ago and he has been seen twice here for the improvement in his symptoms. He states he is triggered by stressors at home including a with disabilities and a child with behavioral health problems. He denies any fever, chills, chest pain or dyspnea, diarrhea or constipation, or urinary symptoms. His symptoms today feels the same as they always have. He has tried Zofran in the past without improvement in his tried promethazine p.o. which was given to him last time. Review of Systems Ten Systems: 10 systems reviewed and negative Constitutional: reports: Reviewed and negative GI: reports: Nausea. denies: Abdominal Pain, Constipation, Diarrhea, Hematemesis PD PAST MEDICAL HISTORY - Past Medical History Past Medical History: Yes Cardiovascular: None, [place], Other Respiratory: Sleep apnea Neuro: Peripheral neuropathy Endocrine/Autoimmune: None GI: None : Kidney stones HEENT: None Psych: Depression, Anxiety Musculoskeletal: Osteoarthritis, Chronic back pain Derm: None - Past Surgical History Past Surgical History: Yes General: Appendectomy Ortho: Carpal Tunnel surgery, Shoulder arthroplasty, Spine surgery - Present Medications Home Medications: Ambulatory Orders Medication Instructions Recorded Confirmed Promethazine [Phenergan] 25 mg PO Q6H PRN #20 tab 02/10/21 02/14/21 Metoclopramide HCl [Metoclopramide 10 mg PO AC #30 02/14/21 HCl Odt] Promethazine Sup [Phenergan Supp] 12.5 mg MI Q8H PRN #30 supp 02/14/21 - Allergies Allergies/Adverse Reactions: Allergies Allergy/AdvReac Type Severity Reaction Status Date / Time amoxicillin Allergy Hives Verified 02/14/21 12:28 - Social History Does the pt smoke?: No Smoking Status: Never smoker Does the pt drink ETOH?: No Does the pt have substance abuse?: Yes - Immunizations Immunizations are current?: Yes - POLST Patient has POLST: No PD ED PE NORMAL - Vitals Vital signs reviewed: Yes - General General: Alert and oriented X 3, No acute distress, Well developed/nourished - HEENT HEENT: Atraumatic, Moist mucous membranes, Pharynx benign - Neck Neck: Supple, no meningeal sign, No JVD - Cardiac Cardiac: RRR, No murmur - Respiratory Respiratory: No respiratory distress, Clear bilaterally - Abdomen Abdomen: Normal bowel sounds, Soft, Non tender, Non distended - Back Back: No CVA TTP, No spinal TTP - Derm Derm: Normal color, Warm and dry, No rash - Neuro Neuro: Alert and oriented X 3 Eye Opening: Spontaneous Motor: Obeys Commands Verbal: Oriented GCS Score: 15 - Psych Psych: Normal mood, Normal affect Results - Vitals Vitals: Vital Signs - 24 hr 02/14/21 02/14/21 12:26 14:42 Temperature 37.6 C Heart Rate 87 74 Respiratory 20 18 Rate Blood Pressure 139/113 H 145/79 H O2 Saturation 98 99 Oxygen O2 Source Room air - Labs Labs: Laboratory Tests 02/14/21 02/14/21 12:43 12:43 WBC 9.6 RBC 4.16 L Hgb 13.4 L Hct 38.6 L MCV 92.8 MCH 32.2 H MCHC 34.7 RDW 12.4 Plt Count 287 MPV 9.6 Neut # (Auto) 7.1 H Lymph # (Auto) 1.8 [place] # (Auto) 0.6 Eos # (Auto) 0.0 Baso # (Auto) 0.0 Absolute Nucleated RBC 0.00 Nucleated RBC % 0.0 Sodium 139 Potassium 3.2 L Chloride 103 Carbon Dioxide 24 Anion Gap 12.0 BUN 16 Creatinine 1.1 Estimated GFR (MDRD) 67 L Glucose 120 H Calcium 9.5 Total Bilirubin 2.0 H AST 19 ALT 21 Alkaline Phosphatase 65 Total Protein 7.3 Albumin 4.7 Globulin 2.6 Albumin/Globulin Ratio 1.8 Lipase 33 PD MEDICAL DECISION MAKING - ED course Complexity details: reviewed old records, reviewed results, re-evaluated patient, considered differential, d/w patient ED course: 65-year-old male with a past medical history of recurrent nausea and vomiting thought secondary to stress induced or abdominal migraines. He does smoke marijuana though states that he does not believe this is the cause as he does not have regular symptoms, symptoms seem to be worse when he is having stressors at home. In any case he is well-appearing, stable vital signs, stable labs. He received 1 L normal saline as well as 2.5 mg of IV droperidol with resolution of his symptoms. He declined any additional medication or IV fluids and felt he was back to baseline. I will give him p.o. metoclopramide and rectal promethazine to use as needed though advised to not use simultaneously. He has a follow-up with his primary care provider tomorrow. Advised him to keep this appointment. Reviewed return precautions in detail with the patient including fever, increased pain or otherwise new concerns Departure - Departure Disposition: Home, Self Care Clinical Impression: Nausea & vomiting Qualifiers: Vomiting type: unspecified Vomiting Intractability: non-intractable Qualified Code(s): R11.2 - Nausea with vomiting, unspecified Instructions: ED Nausea Vomiting Prescriptions: Metoclopramide HCl [Metoclopramide HCl Odt] 10 mg PO AC #30 Promethazine Sup [Phenergan Supp] 12.5 mg MI Q8H PRN #30 supp PRN Reason: Nausea / Vomiting Comments: You presented w/ an exacerbation of your recurrent nausea/vomiting, possibly an abdominal migraine or cyclic vomiting. Your labs are stable and your exam is reassuring. I have prescribed two different options for treatment. You should not use both simultaneously, but can use one or the other and see what works best for you. I have given you a rectal suppository and a dissolving oral tablet. Please monitor diet and evaluate for triggering foods. Keep your PCP appointment tomorrow. Discharge Date/Time: 02/14/21 15:07
[2021-02-14 14:43] VITALS: BP 145/79
== END 2021-02-14 15:07 | disposition home or self-care (01) ==
LOC: ED 12:14
DX: R11.2 Nausea with vomiting, unspecified (principal)
CPT/HCPCS: 36415; 80053; 83690; 85025; 96361; 96374; 99283

== ENCOUNTER 2021-06-10 10:00 | Emergency (ER) | payer MEDICARE, OTHER ==
--- NOTE | 2021-06-10 10:25 | ED Physician Documentation ---
PD HPI NVD - Stated complaint Stated Complaint: VOMITTING - Chief complaint Chief Complaint: Abd Pain - History obtained from History obtained from: Patient - History of Present Illness Timing - onset: How many days ago (3) Timing - duration: Days (3) Timing - details: Abrupt onset, Still present, Waxing and waning Associated symptoms: Abdominal pain (cramping upper abd), Loss of appetite. No: Fever, Near syncope / syncope Contributing factors: Other (he does have cannibis use). No: Sick contact, Bad food, Alcohol use Similar symptoms before: No diagnosis (he states dx abd migraines, but not clear if that is it. Consider cannibis hyperemesis.) Recently seen: Emergency Dept (similar presentations episodically.) Review of Systems Constitutional: denies: Fever, Chills Nose: denies: Rhinorrhea / runny nose, Sinus pressure / pain Throat: denies: Sore throat Cardiac: denies: Chest pain / pressure Respiratory: denies: Cough GI: reports: Abdominal Pain, Nausea, Vomiting. denies: Constipation, Diarrhea : denies: Dysuria, Frequency Musculoskeletal: denies: Neck pain, Back pain Neurologic: reports: Generalized weakness. denies: Near syncope, Altered mental status, Headache PD PAST MEDICAL HISTORY - Past Medical History Cardiovascular: None, [place], Other Respiratory: Sleep apnea Neuro: Peripheral neuropathy Endocrine/Autoimmune: None GI: None : Kidney stones HEENT: None Psych: Depression, Anxiety Musculoskeletal: Osteoarthritis, Chronic back pain Derm: None - Past Surgical History Past Surgical History: Yes General: Appendectomy Ortho: Carpal Tunnel surgery, Shoulder arthroplasty, Spine surgery - Present Medications Home Medications: Ambulatory Orders Medication Instructions Recorded Confirmed Promethazine [Phenergan] 25 mg PO Q6H PRN #20 tab 02/10/21 02/14/21 Metoclopramide HCl [Metoclopramide 10 mg PO AC #30 02/14/21 HCl Odt] Promethazine Sup [Phenergan Supp] 12.5 mg MS Q8H PRN #30 supp 02/14/21 Promethazine [Phenergan] 25 mg PO Q6H PRN #20 tab 06/10/21 - Allergies Allergies/Adverse Reactions: Allergies Allergy/AdvReac Type Severity Reaction Status Date / Time amoxicillin Allergy Hives Verified 06/10/21 10:10 - Social History Does the pt smoke?: No Smoking Status: Never smoker Does the pt drink ETOH?: No Does the pt have substance abuse?: Yes - Immunizations Immunizations are current?: Yes - POLST Patient has POLST: No PD ED PE NORMAL - Vitals Vital signs reviewed: Yes - General General: Alert and oriented X 3, Well developed/nourished, Other (appears uncomfortable and holding emesis bag with dry heaving on exam.) - HEENT HEENT: Pharynx benign - Neck Neck: Supple, no meningeal sign, No adenopathy - Cardiac Cardiac: No murmur. No: RRR (regular and bradycardic but BP good. He is pale and presume has some vagal effect. ) - Respiratory Respiratory: Clear bilaterally - Abdomen Abdomen: Normal bowel sounds, Soft, Non distended, No organomegaly, Other (tender epigastric area almost before actually palpating the abdomen. guarding upper abdomen. Lower not tender. ) - Back Back: No CVA TTP - Derm Derm: Warm and dry. No: Normal color (pale on initial exam.) - Extremities Extremities: Normal ROM s pain - Neuro Neuro: Alert and oriented X 3, No motor deficit, Normal speech Results - Vitals Vitals: Oxygen O2 Source Room air - Labs Labs: Laboratory Tests 06/10/21 06/10/21 10:35 11:46 Sodium 138 Potassium 3.3 L Chloride 103 Carbon Dioxide 21 Anion Gap 14.0 H BUN 19 Creatinine 1.1 Estimated GFR (MDRD) 67 L Glucose 129 H Calcium 9.8 Magnesium 1.7 Total Bilirubin 2.8 H AST 22 ALT 25 Alkaline Phosphatase 71 Total Protein 7.2 Albumin 4.7 Globulin 2.5 Albumin/Globulin Ratio 1.9 Lipase 33 Urine Color YELLOW Urine Clarity CLEAR Urine pH 7.5 Ur Specific [place] 1.020 Urine Protein NEGATIVE Urine Glucose (UA) NEGATIVE Urine Ketones TRACE Urine Occult Blood SMALL H Urine Nitrite NEGATIVE Urine Bilirubin NEGATIVE Urine Urobilinogen 0.2 (NORMAL) Ur Leukocyte Esterase NEGATIVE Urine RBC 6-10 H Urine WBC 0-3 Ur Squamous Epith Cells NONE SEEN Urine Bacteria Rare Ur Microscopic Review INDICATED Urine Culture Comments NOT INDICATED Urine Opiates Screen NEGATIVE Ur Oxycodone Screen NEGATIVE Urine Methadone Screen NEGATIVE Ur Propoxyphene Screen NEGATIVE Ur Barbiturates Screen NEGATIVE Ur Tricyclics Screen NEGATIVE Ur Phencyclidine Scrn NEGATIVE Ur Amphetamine Screen NEGATIVE U Methamphetamines Scrn NEGATIVE U Benzodiazepines Scrn NEGATIVE Urine Cocaine Screen NEGATIVE U Cannabinoids Screen POSITIVE H PD MEDICAL DECISION MAKING - ED course Complexity details: reviewed old records (similar presentations with prior testings have been normal. ), reviewed results (improved with meds and fluids. Able to take oral fluids okay. ), considered differential (episodic nature and the character of symptoms/presentation seems likely c/w cannibis hyperemesis. ), d/w patient Departure - Departure Disposition: 01 Home, Self Care Clinical Impression: Cyclical vomiting Condition: Stable Follow-Up: Ricci Platt DO [Primary Care Provider] - Prescriptions: Promethazine [Phenergan] 25 mg PO Q6H PRN #20 tab PRN Reason: Nausea / Vomiting Comments: Try to stay well-hydrated. Regular diet. [place] food initially today and then progressed to normal. Promethazine for nausea every 6-8 hours if needed. Episodic vomiting like this can relate to use of cannabis and cause episodes of vomiting such as yours. Avoid cannabis use for at least 2 months and likely these episodes will resolve. Discharge Date/Time: 06/10/21 13:02
[2021-06-10] MEDS ORDERED: SODIUM CHLORIDE 0.9% 1,000 ML IV STA ×2 (10:26→11:52)
[2021-06-10] MEDS ORDERED: DROPERIDOL 5 MG/2 ML VIAL IVP STA (10:27)
[2021-06-10] MEDS ORDERED: FAMOTIDINE 20 MG/2 ML VIAL IVP STA (10:27)
[2021-06-10 10:59] LABS: ALBUMIN 4.7 g/dL (3.2-5.5); ALBUMIN/GLOBULIN RATIO 1.9 (1.0-2.2); BILIRUBIN,TOTAL 2.8 mg/dL (0.2-1.0); CALCIUM 9.8 mg/dL (8.5-10.3); CREATININE 1.1 mg/dL (0.6-1.2); MAGNESIUM 1.7 mg/dL (1.7-2.8); POTASSIUM 3.3 mmol/L (3.5-5.0); TOTAL PROTEIN 7.2 g/dL (6.7-8.2)
[2021-06-10 11:58] LABS: MUDS CUTOFF CONCENTRATIONS CUTOFF CONC BELOW:
[2021-06-10 12:00] LABS: BILIRUBIN,URINE NEGATIVE (NEGATIVE); GLUCOSE, URINE (UA) NEGATIVE (NEGATIVE); KETONES,URINE (UA) TRACE mg/dL (NEGATIVE); LEUKOCYTE ESTERASE, URINE NEGATIVE (NEGATIVE); NITRITE,URINE NEGATIVE (NEGATIVE); OCCULT BLOOD,URINE SMALL (NEGATIVE); PH,URINE 7.5 PH (5.0-7.5); PROTEIN,URINE NEGATIVE (NEGATIVE); UROBILINOGEN,URINE 0.2 (NORMAL) E.U./dL (NORMAL)
[2021-06-10 12:04] LABS: CLARITY,URINE CLEAR (CLEAR)
[2021-06-10 12:10] LABS: BACTERIA,URINE Rare /HPF (None Seen); SQUAMOUS EPITHELIAL CELL,UR NONE SEEN (<= Few); WBC,URINE 0-3 /HPF (0-3)
[2021-06-10 12:11] LABS: AMPHETAMINE SCREEN,URINE NEGATIVE (NEGATIVE); BARBITURATE SCREEN,UR NEGATIVE (NEGATIVE); BENZODIAZEPINES SCREEN, URINE NEGATIVE (NEGATIVE); COCAINE SCREEN URINE NEGATIVE (NEGATIVE); METHADONE SCREEN, URINE NEGATIVE (NEGATIVE); METHAMPHETAMINES SCREEN, URINE NEGATIVE (NEGATIVE); OPIATE SCREEN, URINE NEGATIVE (NEGATIVE); OXYCODONE SCREEN, URINE NEGATIVE (NEGATIVE); PROPOXYPHENE SCREEN, URINE NEGATIVE (NEGATIVE); THC CANNABINOID SCREEN, URINE POSITIVE (NEGATIVE); TRICYCLIC ANTIDEPRESSANT,URINE NEGATIVE (NEGATIVE)
[2021-06-10 12:52] VITALS: BP 125/72
== END 2021-06-10 13:02 | disposition home or self-care (01) ==
LOC: ED 10:00
DX: R11.15 Cyclical vomiting syndrome unrelated to migraine (principal)
CPT/HCPCS: 36415; 80053; 80306; 81001; 81003; 83690; 83735; 87086; 96361; 96374; 99282

== ENCOUNTER 2021-08-21 08:19 | Emergency (ER) | payer MEDICARE, OTHER ==
[2021-08-21] MEDS ORDERED: PROCHLORPERAZINE 10 MG/2 ML VIAL IVP STA (08:32)
[2021-08-21] MEDS ORDERED: SODIUM CHLORIDE 0.9% 1,000 ML IV STA ×2 (08:32→10:21)
[2021-08-21] MEDS ORDERED: KETOROLAC 30 MG/ML VIAL IVP STA (08:33)
[2021-08-21] MEDS ORDERED: DEXAMETHASONE 10 MG/ML VIAL IVP STA (08:33)
[2021-08-21] MEDS ORDERED: diphenhydrAMINE INJ 50 MG/ML VIAL IVP STA (08:33)
[2021-08-21 08:38] LABS: BASOPHILS % (AUTO) 0.3 %; EOSINOPHILS # (AUTO) 0.1 10^3/uL (0.0-0.7); EOSINOPHILS % (AUTO) 0.7 %; HGB - HEMOGLOBIN 14.3 g/dL (14.0-18.0); LYMPHOCYTES # (AUTO) 2.7 10^3/uL (1.5-3.5); LYMPHOCYTES % (AUTO) 24.7 %; MEAN CORPUSCULAR HEMOGLOBIN 32.6 pg (27.0-31.0); MEAN CORPUSCULAR HGB CONC 35.8 g/dL (32.0-36.0); MEAN CORPUSCULAR VOLUME 91.1 fL (80.0-94.0); MONOCYTES # (AUTO) 0.8 10^3/uL (0.0-1.0); MONOCYTES % (AUTO) 7.5 %; NEUTROPHILS # (AUTO) 7.3 10^3/uL (1.5-6.6); NEUTROPHILS % (AUTO) 66.4 %; PLT - PLATELET COUNT 284 10^3/uL (130-450); RED BLOOD COUNT 4.39 10^6/uL (4.70-6.10); RED CELL DISTRIBUTION WIDTH 12.4 % (12.0-15.0)
--- NOTE | 2021-08-21 08:46 | ED Physician Documentation ---
PD HPI NVD - Stated complaint Stated Complaint: VOMITING - Chief complaint Chief Complaint: Abd Pain - History obtained from History obtained from: Patient - History of Present Illness Timing - onset: How many days ago (3) Timing - duration: Days (3) Timing - details: Gradual onset, Still present Associated symptoms: Abdominal pain, Near syncope / syncope Contributing factors: Other (hx of abdominal migraines) Improved by: Vomiting Worsened by: Other (drinking fluids) Similar symptoms before: Diagnosis (abdominal migraine) Recently seen: Not recently seen - Additonal information Additional information: 65-year-old Kye Isaac has a history of abdominal migraine and about 3 days ago he developed symptoms of nausea vomiting photosensitivity abdominal pain and he was able to work his way through that and yesterday he felt that things were improved he tried to drink some fluids and had more vomiting. Today he is vomiting again after thinking he was better last night. Similar to what is had previously. He is not currently ill otherwise. Review of Systems Constitutional: denies: Fever Eyes: reports: Photophobia. denies: Decreased vision Ears: denies: Ear pain Nose: denies: Rhinorrhea / runny nose, Congestion Throat: denies: Sore throat Cardiac: denies: Chest pain / pressure, Palpitations Respiratory: reports: Dyspnea. denies: Cough GI: reports: Abdominal Pain, Nausea, Vomiting : denies: Dysuria, Frequency Skin: denies: Rash Musculoskeletal: denies: Neck pain, Back pain, Extremity pain Neurologic: denies: Generalized weakness, Focal weakness, Numbness PD PAST MEDICAL HISTORY - Past Medical History Cardiovascular: None, [place], Other Respiratory: Sleep apnea Neuro: Peripheral neuropathy Endocrine/Autoimmune: None GI: None : Kidney stones HEENT: None Psych: Depression, Anxiety Musculoskeletal: Osteoarthritis, Chronic back pain Derm: None - Past Surgical History Past Surgical History: Yes General: Appendectomy Ortho: Carpal Tunnel surgery, Shoulder arthroplasty, Spine surgery - Present Medications Home Medications: Ambulatory Orders Medication Instructions Recorded Confirmed Promethazine [Phenergan] 25 mg PO Q6H PRN #20 tab 02/10/21 02/14/21 Metoclopramide HCl [Metoclopramide 10 mg PO AC #30 02/14/21 HCl Odt] Promethazine Sup [Phenergan Supp] 12.5 mg IN Q8H PRN #30 supp 02/14/21 Promethazine [Phenergan] 25 mg PO Q6H PRN #20 tab 06/10/21 Promethazine [Phenergan] 25 mg PO Q6H PRN #20 tab 08/21/21 - Allergies Allergies/Adverse Reactions: Allergies Allergy/AdvReac Type Severity Reaction Status Date / Time amoxicillin Allergy Hives Verified 08/21/21 08:28 - Social History Does the pt smoke?: No Smoking Status: Never smoker Does the pt drink ETOH?: No Does the pt have substance abuse?: Yes - Immunizations Immunizations are current?: Yes - POLST Patient has POLST: No PD ED PE NORMAL - Vitals Vital signs reviewed: Yes (hypertensive and bradycardic) - General General: Alert and oriented X 3, Well developed/nourished, Other (65-year-old male wearing dark glasses inside appears to be panting and appears in some distress.) - HEENT HEENT: Atraumatic, Other (parched mucous membranes ) - Neck Neck: Supple, no meningeal sign, No bony TTP - Cardiac Cardiac: RRR, No murmur, Other (rate on exam is 60) - Respiratory Respiratory: No respiratory distress, Clear bilaterally - Abdomen Abdomen: Soft, Non tender - Back Back: No CVA TTP, No spinal TTP - Derm Derm: Normal color, Warm and dry, No rash - Extremities Extremities: No deformity, No edema - Neuro Neuro: Alert and oriented X 3, 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, No motor deficit, No sensory deficit, Normal speech Eye Opening: Spontaneous Motor: Obeys Commands Verbal: Oriented GCS Score: 15 - Psych Psych: Normal mood, Normal affect Results - Vitals Vitals: Vital Signs - 24 hr 08/21/21 08/21/21 08/21/21 08:28 08:33 09:04 Temperature 36.9 C Heart Rate 43 L 62 55 L Respiratory 20 34 H 19 Rate Blood Pressure 176/76 H 187/83 H 166/83 H O2 Saturation 99 100 99 08/21/21 11:00 Temperature Heart Rate 70 Respiratory 19 Rate Blood Pressure 94/62 O2 Saturation 94 Oxygen O2 Source Room air - Labs Labs: Laboratory Tests 08/21/21 08/21/21 08/21/21 08:29 08:29 08:39 WBC 11.0 H RBC 4.39 L Hgb 14.3 Hct 40.0 L MCV 91.1 MCH 32.6 H MCHC 35.8 RDW 12.4 Plt Count 284 MPV 10.0 Neut # (Auto) 7.3 H Lymph # (Auto) 2.7 [place] # (Auto) 0.8 Eos # (Auto) 0.1 Baso # (Auto) 0.0 Absolute Nucleated RBC 0.00 Nucleated RBC % 0.0 Sodium 138 Potassium 3.5 Chloride 103 Carbon Dioxide 20 L Anion Gap 15.0 H BUN 21 H Creatinine 1.3 H Estimated GFR (MDRD) 55 L Glucose 119 H Lactic Acid 3.1 H* Calcium 9.8 Total Bilirubin 2.4 H AST 28 ALT 19 Alkaline Phosphatase 69 Total Protein 7.4 Albumin 4.8 Globulin 2.6 Albumin/Globulin Ratio 1.8 Lipase 36 Urine Color Urine Clarity Urine pH Ur Specific [place] Urine Protein Urine Glucose (UA) Urine Ketones Urine Occult Blood Urine Nitrite Urine Bilirubin Urine Urobilinogen Ur Leukocyte Esterase Urine RBC Urine WBC Ur Squamous Epith Cells Urine Bacteria Ur Microscopic Review Urine Culture Comments 08/21/21 10:18 WBC RBC Hgb Hct MCV MCH MCHC RDW Plt Count MPV Neut # (Auto) Lymph # (Auto) [place] # (Auto) Eos # (Auto) Baso # (Auto) Absolute Nucleated RBC Nucleated RBC % Sodium Potassium Chloride Carbon Dioxide Anion Gap BUN Creatinine Estimated GFR (MDRD) Glucose Lactic Acid Calcium Total Bilirubin AST ALT Alkaline Phosphatase Total Protein Albumin Globulin Albumin/Globulin Ratio Lipase Urine Color YELLOW Urine Clarity CLEAR Urine pH 7.5 Ur Specific [place] 1.020 Urine Protein NEGATIVE Urine Glucose (UA) NEGATIVE Urine Ketones 15 H Urine Occult Blood MODERATE H Urine Nitrite NEGATIVE Urine Bilirubin NEGATIVE Urine Urobilinogen 0.2 (NORMAL) Ur Leukocyte Esterase NEGATIVE Urine RBC 0-5 Urine WBC 0-3 Ur Squamous Epith Cells NONE SEEN Urine Bacteria Few Ur Microscopic Review INDICATED Urine Culture Comments NOT INDICATED Procedures - IVC sono (time) 0845 Bedside IVC sono: IVC measures (cm) (1.43), IVC collapsed c insp (cm) (complete), Dehydration (est <1 liter deficit) PD MEDICAL DECISION MAKING - ED course Complexity details: reviewed old records, reviewed results, re-evaluated patient, considered differential, d/w patient ED course: 65-year-old male with a history of abdominal migraines presents to the emergency department this morning with persistent vomiting over the past 3 days. He feels dehydrated. He was able to hold some fluids down yesterday. Here in the emerge department IV is begun the patient is administered a migraine cocktail consisting of 10 mg of Compazine 25 mg of Benadryl 10 mg of dexamethasone 30 mg of Toradol and 1 L of saline. He requested a second liter of saline a part of which was administered with further improvement. Patient feels much improved at the conclusion of treatment. Departure - Departure Disposition: 01 Home, Self Care Clinical Impression: Cyclical vomiting Condition: Stable Instructions: ED Nausea Vomiting Follow-Up: Ricci Platt DO [Primary Care Provider] - Prescriptions: Promethazine [Phenergan] 25 mg PO Q6H PRN #20 tab PRN Reason: Nausea / Vomiting Comments: Kye, today you were mildly dehydrated with the vomiting you have been doing and we gave you a migraine cocktail. Our expectation is to have less vomiting over the next several weeks. I have prescribed some promethazine for your use at home it has been E scribed to [facility] in [place]. Discharge Date/Time: 08/21/21 11:26
[2021-08-21 08:49] LABS: ALBUMIN 4.8 g/dL (3.2-5.5); ALBUMIN/GLOBULIN RATIO 1.8 (1.0-2.2); BILIRUBIN,TOTAL 2.4 mg/dL (0.2-1.0); CALCIUM 9.8 mg/dL (8.5-10.3); CREATININE 1.3 mg/dL (0.6-1.2); POTASSIUM 3.5 mmol/L (3.5-5.0); TOTAL PROTEIN 7.4 g/dL (6.7-8.2)
[2021-08-21 10:50] LABS: BILIRUBIN,URINE NEGATIVE (NEGATIVE); CLARITY,URINE CLEAR (CLEAR); GLUCOSE, URINE (UA) NEGATIVE (NEGATIVE); KETONES,URINE (UA) 15 mg/dL (NEGATIVE); LEUKOCYTE ESTERASE, URINE NEGATIVE (NEGATIVE); NITRITE,URINE NEGATIVE (NEGATIVE); OCCULT BLOOD,URINE MODERATE (NEGATIVE); PH,URINE 7.5 PH (5.0-7.5); PROTEIN,URINE NEGATIVE (NEGATIVE); UROBILINOGEN,URINE 0.2 (NORMAL) E.U./dL (NORMAL)
[2021-08-21 11:04] LABS: RBC,URINE 0-5 /HPF (0-5); WBC,URINE 0-3 /HPF (0-3)
[2021-08-21 11:05] LABS: BACTERIA,URINE Few /HPF (None Seen); SQUAMOUS EPITHELIAL CELL,UR NONE SEEN (<= Few)
[2021-08-21 11:07] VITALS: BP 94/62
== END 2021-08-21 11:26 | disposition home or self-care (01) ==
LOC: ED 08:19
DX: R11.15 Cyclical vomiting syndrome unrelated to migraine (principal)
CPT/HCPCS: 36415; 80053; 81001; 83605; 83690; 85025; 96361; 96374; 96375; 99284; 99285; J1200; 81003; 87086

== ENCOUNTER 2021-08-25 23:43 | Emergency (ER) | payer MEDICARE, OTHER ==
[2021-08-25] MEDS ORDERED: SODIUM CHLORIDE 0.9% 1,000 ML IV STA (23:54)
--- NOTE | 2021-08-25 23:54 | ED Physician Documentation ---
PD HPI NVD - Stated complaint Stated Complaint: VOMITING/HEADACHE - History obtained from History obtained from: Patient - History of Present Illness Timing - onset: How many weeks ago (1) Timing - details: Intermittant Pain level now: 5 Associated symptoms: Abdominal pain. No: Fever, Loss of appetite Improved by: Other (no ameliorating factors (although patient says he did have much improvement after medications and IV fluids on previous ED visit)) Worsened by: Eating Similar symptoms before: Diagnosis (abdominal migraine, per patient) Recently seen: Emergency Dept - Additonal information Additional information: 7th [facility] ED visit over past 12 months for similar problems as these past visits. He was T+R for same symptoms 08/21, says he could not corn picker the prescribed phenergan due to some problems with insurance. He c/o nausea, vomiting, and epigastric/periumbilical pain , episodic / intermittent x 1 week. He says he has had these symptoms diagnosed as abdominal migraines. Review of Systems Constitutional: denies: Fever, Chills, Sweats Cardiac: reports: Reviewed and negative Respiratory: reports: Reviewed and negative GI: reports: Abdominal Pain, Nausea, Vomiting. denies: Constipation, Diarrhea : denies: Dysuria, Frequency PD PAST MEDICAL HISTORY - Past Medical History Cardiovascular: None, [place], Other Respiratory: Sleep apnea Neuro: Peripheral neuropathy Endocrine/Autoimmune: None GI: None : Kidney stones HEENT: None Psych: Depression, Anxiety Musculoskeletal: Osteoarthritis, Chronic back pain Derm: None - Past Surgical History Past Surgical History: Yes General: Appendectomy Ortho: Carpal Tunnel surgery, Shoulder arthroplasty, Spine surgery - Present Medications Home Medications: Ambulatory Orders Medication Instructions Recorded Confirmed Promethazine [Phenergan] 25 mg PO Q6H PRN #20 tab 02/10/21 02/14/21 Metoclopramide HCl [Metoclopramide 10 mg PO AC #30 02/14/21 HCl Odt] Promethazine Sup [Phenergan Supp] 12.5 mg MA Q8H PRN #30 supp 02/14/21 Promethazine [Phenergan] 25 mg PO Q6H PRN #20 tab 06/10/21 Promethazine [Phenergan] 25 mg PO Q6H PRN #20 tab 08/21/21 - Allergies Allergies/Adverse Reactions: Allergies Allergy/AdvReac Type Severity Reaction Status Date / Time amoxicillin Allergy Hives Verified 08/25/21 23:53 - Social History Does the pt smoke?: No Smoking Status: Never smoker Does the pt drink ETOH?: No Does the pt have substance abuse?: Yes - Immunizations Immunizations are current?: Yes - POLST Patient has POLST: No PD ED PE NORMAL - Vitals Vital signs reviewed: Yes - General General: Alert and oriented X 3, No acute distress, Well developed/nourished - HEENT HEENT: Moist mucous membranes - Cardiac Cardiac: RRR, No murmur - Respiratory Respiratory: No respiratory distress, Clear bilaterally - Abdomen Abdomen: Normal bowel sounds, Soft, Non tender, Non distended - Derm Derm: Normal color, Warm and dry Results - Vitals Vitals: Vital Signs - 24 hr 08/25/21 08/26/21 08/26/21 23:54 01:06 01:22 Temperature 36.6 C 36.6 C Heart Rate 76 72 72 Respiratory 18 16 16 Rate Blood Pressure 116/67 117/62 117/62 O2 Saturation 100 99 99 Oxygen O2 Source Room air - Labs Labs: Laboratory Tests 08/25/21 08/25/21 00:00 00:00 WBC 9.0 RBC 4.07 L Hgb 13.2 L Hct 37.3 L MCV 91.6 MCH 32.4 H MCHC 35.4 RDW 12.5 Plt Count 266 MPV 9.8 Neut # (Auto) 4.3 Lymph # (Auto) 3.9 [place] # (Auto) 0.7 Eos # (Auto) 0.1 Baso # (Auto) 0.0 Absolute Nucleated RBC 0.00 Nucleated RBC % 0.0 Sodium 139 Potassium 3.2 L Chloride 103 Carbon Dioxide 25 Anion Gap 11.0 BUN 14 Creatinine 1.1 Estimated GFR (MDRD) 67 L Glucose 112 H Calcium 9.3 Total Bilirubin 1.7 H AST 17 ALT 17 Alkaline Phosphatase 62 Total Protein 7.0 Albumin 4.5 Globulin 2.5 Albumin/Globulin Ratio 1.8 Lipase 35 PD MEDICAL DECISION MAKING - ED course Complexity details: reviewed old records, reviewed results, re-evaluated patient, considered differential, d/w patient ED course: Given one liter NS IV as well as compazine 10mg IV, decadron 10mg IV, toradol 30mg IV. On reevaluation, he is in NAD and reports feeling significant improvement, says he is comfortable with d/c. Results d/w patient. Incidental note of mild hypokemia (k=3.3) and he is given 20meq KCL PO. Also note elevated bilirubin without any other LFT abnormalities; he has had elevated bilirubin levels going back to 2013. This is not a significant finding given it's chronicity and mild elevation (has been higher on some previous visits), also considering lack of other LFT abnormalities. Patient says he has been able to clear the problem with insurance regarding his phenergan rx and plans to pick it up later today Departure - Departure Disposition: 01 Home, Self Care Clinical Impression: Abdominal pain, Vomiting and diarrhea, Hypokalemia Condition: Good Instructions: ED Diet Vomiting Diarrhea, ED Potassium Deficiency, ED Abdominal Pain Unkn Cause Male Comments: Your test results are reassuring, with no concerning abnormalities. Incidental note is made of mildly low potassium level for which you were given a dose of potassium (orally). As we discussed, your bilirubin was mildly elevated. There are many causes of elevated bilirbin, but this seems to be a coincident finding that is not concerning for the reasons we discussed: your other liver function tests are all normal, and you have had a mildly elevated bilirubin on previous tests on my records going back to 2013. Follow up with your primary care provider, next available appointment. Discharge Date/Time: 08/26/21 01:23
[2021-08-26] MEDS ORDERED: PROCHLORPERAZINE 10 MG/2 ML VIAL IVP STA (00:01)
[2021-08-26] MEDS ORDERED: DEXAMETHASONE 10 MG/ML VIAL IVP STA (00:02)
[2021-08-26] MEDS ORDERED: KETOROLAC 30 MG/ML VIAL IVP STA (00:02)
[2021-08-26 00:11] LABS: BASOPHILS % (AUTO) 0.2 %; EOSINOPHILS # (AUTO) 0.1 10^3/uL (0.0-0.7); EOSINOPHILS % (AUTO) 1.2 %; HCT - HEMATOCRIT 37.3 % (42.0-52.0); HGB - HEMOGLOBIN 13.2 g/dL (14.0-18.0); LYMPHOCYTES # (AUTO) 3.9 10^3/uL (1.5-3.5); LYMPHOCYTES % (AUTO) 42.8 %; MEAN CORPUSCULAR HEMOGLOBIN 32.4 pg (27.0-31.0); MEAN CORPUSCULAR HGB CONC 35.4 g/dL (32.0-36.0); MEAN CORPUSCULAR VOLUME 91.6 fL (80.0-94.0); MEAN PLATELET VOLUME 9.8 fL (7.4-11.4); MONOCYTES # (AUTO) 0.7 10^3/uL (0.0-1.0); MONOCYTES % (AUTO) 8.2 %; NEUTROPHILS # (AUTO) 4.3 10^3/uL (1.5-6.6); NEUTROPHILS % (AUTO) 47.4 %; PLT - PLATELET COUNT 266 10^3/uL (130-450); RED BLOOD COUNT 4.07 10^6/uL (4.70-6.10); RED CELL DISTRIBUTION WIDTH 12.5 % (12.0-15.0)
[2021-08-26 00:23] LABS: ALBUMIN 4.5 g/dL (3.2-5.5); ALBUMIN/GLOBULIN RATIO 1.8 (1.0-2.2); BILIRUBIN,TOTAL 1.7 mg/dL (0.2-1.0); CALCIUM 9.3 mg/dL (8.5-10.3); CREATININE 1.1 mg/dL (0.6-1.2); POTASSIUM 3.2 mmol/L (3.5-5.0)
[2021-08-26 01:07] VITALS: BP 117/62
[2021-08-26] MEDS ORDERED: PROMETHAZINE 25 MG TABLET PO STA (01:14)
[2021-08-26] MEDS ORDERED: POTASSIUM CHLORIDE 20 MEQ TABLET PO STA (01:15)
== END 2021-08-26 01:23 | disposition home or self-care (01) ==
LOC: ED 23:43
DX: E87.6 Hypokalemia (principal); R10.13 Epigastric pain; R11.2 Nausea with vomiting, unspecified
CPT/HCPCS: 36415; 80053; 83690; 85025; 96361; 96374; 96375; 99283; A9270; Q0169

== ENCOUNTER 2021-10-18 15:54 | Outpatient (CLI) | payer MEDICARE, OTHER | END 2021-10-18 15:55 | disposition EMS.NT | LOC: EMS 15:54 | DX: R06.00 Dyspnea, unspecified (principal); F41.9 Anxiety disorder, unspecified ==

== ENCOUNTER 2021-11-24 07:47 | Outpatient (CLI) | payer MEDICARE, OTHER | END 2021-11-24 07:48 | disposition home or self-care (01) | LOC: LAB 07:47 | PROVIDERS: ATTEND Family Medicine | DX: R53.1 Weakness (principal) | CPT/HCPCS: 36415; 84402; 84403 ==

== ENCOUNTER 2022-07-17 11:00 | Outpatient (CLI) | payer MEDICARE, OTHER | END 2022-07-17 23:59 | disposition critical access hospital (66) | LOC: EMS 11:00 | DX: R11.2 Nausea with vomiting, unspecified (principal); R10.84 Generalized abdominal pain; K59.00 Constipation, unspecified | CPT/HCPCS: A0425; A0429 ==

== ENCOUNTER 2022-07-17 11:08 | Emergency (ER) | payer MEDICARE, OTHER ==
[2022-07-17] MEDS ORDERED: SODIUM CHLORIDE 0.9% 1,000 ML IV STA (11:12)
[2022-07-17] MEDS ORDERED: DROPERIDOL 5 MG/2 ML VIAL IVP STA (11:12)
[2022-07-17 11:18] VITALS: BP 125/69
[2022-07-17 11:22] LABS: BASOPHILS % (AUTO) 0.3 %; EOSINOPHILS % (AUTO) 0.2 %; HCT - HEMATOCRIT 38.1 % (42.0-52.0); HGB - HEMOGLOBIN 13.1 g/dL (14.0-18.0); LYMPHOCYTES # (AUTO) 2.2 10^3/uL (1.5-3.5); LYMPHOCYTES % (AUTO) 20.6 %; MEAN CORPUSCULAR HGB CONC 34.4 g/dL (32.0-36.0); MEAN CORPUSCULAR VOLUME 92.9 fL (80.0-94.0); MEAN PLATELET VOLUME 9.6 fL (7.4-11.4); MONOCYTES # (AUTO) 0.5 10^3/uL (0.0-1.0); NEUTROPHILS % (AUTO) 73.6 %; PLT - PLATELET COUNT 275 10^3/uL (130-450); RED CELL DISTRIBUTION WIDTH 12.4 % (12.0-15.0); WHITE BLOOD COUNT 10.8 x10^3/uL (4.8-10.8)
--- NOTE | 2022-07-17 11:28 | ED Physician Documentation ---
History of Present Illness - Stated complaint Stated Complaint: VOMITING - Chief complaint Chief Complaint: Abd Pain - History obtained from History obtained from: Patient - History of Present Illness Timing: How many days ago (3) Pain level max: 0 Pain level now: 0 - Additonal information Additional information: Patient is a 66-year-old male who presents to the emergency department with nausea and vomiting for the past 3 days. He states that this has been an ongoing issue for many years. Nothing seems to make it better or worse. He states that he does use marijuana daily. Has done this for years. Does not use any alcohol. Is not currently on any medications other than what sounds like a PPI for gastritis versus GERD. He was given IV fluids with EMS. No medications given. He states that he has diffuse abdominal cramping. No blood in the emesis. No fevers. No chills. No diarrhea. He states he has had intermittent constipation. Review of Systems Constitutional: denies: Fever, Chills GI: reports: Nausea, Vomiting : denies: Dysuria Skin: denies: Rash Musculoskeletal: denies: Neck pain, Back pain Neurologic: denies: Headache PD PAST MEDICAL HISTORY - Past Medical History Cardiovascular: None, [place], Other Respiratory: Sleep apnea Neuro: Peripheral neuropathy Endocrine/Autoimmune: None GI: None : Kidney stones HEENT: None Psych: Depression, Anxiety Musculoskeletal: Osteoarthritis, Chronic back pain Derm: None - Past Surgical History Past Surgical History: Yes General: Appendectomy Ortho: Carpal Tunnel surgery, Shoulder arthroplasty, Spine surgery - Present Medications Home Medications: Ambulatory Orders Medication Instructions Recorded Confirmed Omeprazole 40 mg ORAL DAILY 07/17/22 07/17/22 Promethazine [Phenergan] 25 mg PO Q6H PRN #10 tab 07/17/22 - Allergies Allergies/Adverse Reactions: Allergies Allergy/AdvReac Type Severity Reaction Status Date / Time amoxicillin Allergy Hives Verified 07/17/22 11:16 - Social History Does the pt smoke?: No Smoking Status: Never smoker Does the pt drink ETOH?: No Does the pt have substance abuse?: Yes - Immunizations Immunizations are current?: Yes - POLST Patient has POLST: No PD ED PE NORMAL - Vitals Vital signs reviewed: Yes - General General: Alert and oriented X 3, No acute distress - HEENT HEENT: Moist mucous membranes - Neck Neck: Supple, no meningeal sign - Cardiac Cardiac: RRR, Strong equal pulses - Respiratory Respiratory: No respiratory distress, Clear bilaterally - Abdomen Abdomen: Soft, Non tender, Non distended - Derm Derm: Warm and dry, No rash - Extremities Extremities: No edema, No calf tenderness / cord - Neuro Neuro: Alert and oriented X 3 - Psych Psych: Normal mood, Normal affect Results - Vitals Vitals: Vital Signs - 24 hr 07/17/22 11:16 Temperature 36.9 C Heart Rate 67 Respiratory 32 H Rate Blood Pressure 125/69 O2 Saturation 100 Oxygen O2 Source Room air - Labs Labs: Laboratory Tests 07/17/22 07/17/22 11:16 11:16 WBC 10.8 RBC 4.10 L Hgb 13.1 L Hct 38.1 L MCV 92.9 MCH 32.0 H MCHC 34.4 RDW 12.4 Plt Count 275 MPV 9.6 Neut # (Auto) 8.0 H Lymph # (Auto) 2.2 [place] # (Auto) 0.5 Eos # (Auto) 0.0 Baso # (Auto) 0.0 Absolute Nucleated RBC 0.00 Nucleated RBC % 0.0 Sodium 138 Potassium 3.2 L Chloride 106 Carbon Dioxide 22 Anion Gap 10.0 BUN 16 Creatinine 1.1 Estimated GFR (MDRD) 67 L Glucose 123 H Calcium 9.3 Phosphorus 1.6 L Magnesium 1.8 Total Bilirubin 2.0 H AST 17 ALT 15 Alkaline Phosphatase 66 Total Protein 6.7 Albumin 4.3 Globulin 2.4 Albumin/Globulin Ratio 1.8 Lipase 34 PD Medical Decision Making - ED course Complexity details: reviewed results, re-evaluated patient, considered differential, d/w patient ED course: No acute findings on CBC other than a mild anemia, this appears chronic. His ER abdominal panel shows minimal hypokalemia, mild hypophosphatemia, otherwise no significant abnormalities. He was given IV fluids and a dose of droperidol. Symptoms fully resolved. Likely cannabinoid induced hyperemesis. He is requesting to go home at this time. No fevers. We will have him follow-up with his PCP for further care. Patient counseled regarding signs and symptoms for which I believe and urgent re-evaluation would be necessary. Patient with good understanding of and agreement to plan and is comfortable going home at this time This document was made in part using voice recognition software. While efforts are made to proofread this document, sound alike and grammatical errors may occur. Departure - Departure Disposition: 01 Home, Self Care Clinical Impression: Nausea and vomiting in adult Condition: Good Instructions: ED Nausea Vomiting Follow-Up: Ricci Platt DO [Primary Care Provider] - Within 1 week Prescriptions: Promethazine [Phenergan] 25 mg PO Q6H PRN #10 tab PRN Reason: Nausea / Vomiting Comments: Your prescription was sent to [facility] in [place]. Please follow-up with your doctor for further care. Please return if you worsen.
[2022-07-17 11:35] LABS: ALBUMIN 4.3 g/dL (3.2-5.5); ALBUMIN/GLOBULIN RATIO 1.8 (1.0-2.2); CALCIUM 9.3 mg/dL (8.5-10.3); CREATININE 1.1 mg/dL (0.6-1.2); MAGNESIUM 1.8 mg/dL (1.7-2.8); PHOSPHORUS 1.6 mg/dL (2.5-4.6); POTASSIUM 3.2 mmol/L (3.5-5.0); TOTAL PROTEIN 6.7 g/dL (6.7-8.2)
--- OUTSIDE RECORDS SUMMARY | 2022-07-17 11:35 | EXTERNAL MEDICAL SUMMARY RPT | Continuity of Care Document ---
:1955 Author Organization [place] Address [address] [place] [address] Phone Allergies No information. Encounters No information. Functional Status No information. Immunizations No information. Medications No information. Problems date description facility 2022-07-08 09:12 Presence of right artificial shoulder j [facility] Procedures No information. Results/Labs test date author facility value unit interpret ation Result panel 1 (unknown) (no (unknown) (unknown) (no value) (units (unk nown) date) unknown) (unknown) (no (unknown) (unknown) [id number] (units (unkno wn) date) unknown) (unknown) (no (unknown) (unknown) 07/08/22 (units (unkno wn) date) unknown) (unknown) (no (unknown) (unknown) 1-1.5 mm (units (unkno wn) date) unknown) (unknown) (no (unknown) (unknown) 1. Postsurgical (units (unknown) date) changes from right unknown) shoulder hemiarthroplasty with expected metal (unknown) (no (unknown) (unknown) [address] (units (unknown) date) unknown) (unknown) (no (unknown) (unknown) 2. No extravasation (unit s (unknown) date) of glenohumeral unknown) contrast material into the (unknown) (no (unknown) (unknown) 3 fatty (units (unkno wn) date) unknown) (unknown) (no (unknown) (unknown) 3. 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 (units (unknown) date) unknown) (unknown) (no (unknown) (unknown) 4. Mild (units (unkno wn) date) acromioclavicular unknown) osteoarthrosis. (unknown) (no (unknown) (unknown) 10/02/2018, 14:32. (units (unknown) date) unknown) (unknown) (no (unknown) (unknown) A single (units (unkno wn) date) fluoroscopic spot unknown) image demonstrates intra-articular location of (unknown) (no (unknown) (unknown) Accession Number: (units (unknown) date) [id number] unknown) (unknown) (no (unknown) (unknown) Accession Number: (units (unknown) date) [id number] unknown) (unknown) (no (unknown) (unknown) After the (units (unkn own) date) intra-articular unknown) administration of 12 mL of dilute non-ionic contrast, (unknown) (no (unknown) (unknown) Age/Sex: 66 / M (units (unknown) date) Date of Service: unknown) (unknown) (no (unknown) (unknown) [place] [address] (unit s (unknown) date) unknown) (unknown) (no (unknown) (unknown) Approved by: [place] (unit s (unknown) date) Olivia Emerson on unknown) 07/08/2022 at 11:52 (unknown) (no (unknown) (unknown) Approved by: Cherry (unit s (unknown) date) Olivia Perez on unknown) 07/08/2022 at 16:29 (unknown) (no (unknown) (unknown) Bones: A shoulder (units (unknown) date) hemiarthroplasty is unknown) present with associated metal streak (unknown) (no (unknown) (unknown) COMPARISON: [place] (units (unknown) date) Hospital, CT, CT unknown) SHOULDER RIGHT WITH CON, 07/08/2022, 9:45. (unknown) (no (unknown) (unknown) COMPARISON: [facility] (units (unknown) date) Outside Film, MR, MR unknown) SHOULDER RIGHT WITHOUT CONTRAST, (unknown) (no (unknown) (unknown) CT Scan Report (units (unknown) date) unknown) (unknown) (no (unknown) (unknown) : 1955 (units (unknown) date) Acct:[id number] unknown) (unknown) (no (unknown) (unknown) Dictated by: Cherry (unit s (unknown) date) Olivia Perez on unknown) 07/08/2022 at 16:29 (unknown) (no (unknown) (unknown) FINDINGS: (units (unkn own) date) unknown) (unknown) (no (unknown) (unknown) IMPRESSION: (units (un known) date) Successful unknown) fluoroscopically guided administration of iodinated (unknown) (no (unknown) (unknown) IMPRESSION: (units (un known) date) unknown) (unknown) (no (unknown) (unknown) INDICATIONS: EVAL (units (unknown) date) FOR CUFF TEAR unknown) (unknown) (no (unknown) (unknown) Image quality: (units (unknown) date) Expected metal unknown) streak artifact related to patient's shoulder (unknown) (no (unknown) (unknown) [facility] (units (unknown) date) unknown) (unknown) (no (unknown) (unknown) [facility], (units (unknown) date) RF, [place] SHOULDER unknown) INJECTION MR/CT RT, 07/08/2022, 9:24. (unknown) (no (unknown) (unknown) Loc: RAD (units (unkno wn) date) unknown) (unknown) (no (unknown) (unknown) Ordering Provider: (units (unknown) date) Jori Magana MD unknown) (unknown) (no (unknown) (unknown) PROCEDURE: CT (units ( unknown) date) SHOULDER RIGHT WITH unknown) CON (unknown) (no (unknown) (unknown) PROCEDURE: FL (units ( unknown) date) SHOULDER INJECTION unknown) MR/CT RT (unknown) (no (unknown) (unknown) Patient: (units (unkno wn) date) Kye Isaac MR#: unknown) M00 (unknown) (no (unknown) (unknown) Procedure: Ct (units ( unknown) date) Shoulder right with unknown) con (unknown) (no (unknown) (unknown) Procedure: [place] (units ( unknown) date) shoulder injection unknown) mr/ct RT (unknown) (no (unknown) (unknown) Rotator cuff: No (units (unknown) date) extravasation of unknown) glenohumeral contrast material is seen into (unknown) (no (unknown) (unknown) Signed (units (unkno wn) date) unknown) (unknown) (no (unknown) (unknown) [facility] (units (unknown) date) Orthopedic unknown) [place], CR, XR SHOULDER 2+ VIEWS RIGHT, (unknown) (no (unknown) (unknown) Soft tissues: A 0.9 (unit s (unknown) date) cm nonspecific unknown) calcification is seen along the anterior (unknown) (no (unknown) (unknown) TECHNIQUE: (units (unk nown) date) unknown) (unknown) (no (unknown) (unknown) The distal (units (unk nown) date) subscapularis tendon unknown) insertion is not well seen. (unknown) (no (unknown) (unknown) The indications, (units (unknown) date) alternatives, unknown) benefits, risks, and complications of the (unknown) (no (unknown) (unknown) The needle was (units (unknown) date) removed and a unknown) dressing was applied. The patient was given (unknown) (no (unknown) (unknown) The shoulder was (units (unknown) date) examined unknown) fluoroscopically and a site for needle placement (unknown) (no (unknown) (unknown) This was followed (units (unknown) date) by approximately 12 unknown) mL of iodinated contrast. (unknown) (no (unknown) (unknown) XRay Report (units (un known) date) unknown) (unknown) (no (unknown) (unknown) amount of (units (unkn own) date) unknown) (unknown) (no (unknown) (unknown) are (units (unkno wn) date) unknown) (unknown) (no (unknown) (unknown) arthroplasty (units (u nknown) date) unknown) (unknown) (no (unknown) (unknown) artifact that (units ( unknown) date) obscures adjacent unknown) structures. (unknown) (no (unknown) (unknown) artifact that (units ( unknown) date) unknown) (unknown) (no (unknown) (unknown) bursa to suggest a (units (unknown) date) full-thickness unknown) supraspinatus or infraspinatus tendon tear. (unknown) (no (unknown) (unknown) calcific (units (unkno wn) date) tendinopathy. Biceps unknown) long head tendon is not well seen. Mild (unknown) (no (unknown) (unknown) calcifications are (units (unknown) date) unknown) (unknown) (no (unknown) (unknown) capsule. A spinal (units (unknown) date) needle was inserted unknown) into the glenohumeral joint, and a small (unknown) (no (unknown) (unknown) chosen for (units (unk nown) date) unknown) (unknown) (no (unknown) (unknown) compromises (units (un known) date) evaluation of unknown) adjacent structures. (unknown) (no (unknown) (unknown) contrast (units (unkno wn) date) unknown) (unknown) (no (unknown) (unknown) coronal and (units (un known) date) sagittal unknown) reformatting. (unknown) (no (unknown) (unknown) degenerative (units (u nknown) date) changes are seen at unknown) the acromioclavicular joint. The included (unknown) (no (unknown) (unknown) dependent (units (unkn own) date) atelectasis in the unknown) included lungs. Mild coronary artery (unknown) (no (unknown) (unknown) draped in a sterile (unit s (unknown) date) fashion, and 1% unknown) lidocaine infiltrated from skin down to (unknown) (no (unknown) (unknown) entry into the (units (unknown) date) glenohumeral joint unknown) from an anterior approach. The skin was (unknown) (no (unknown) (unknown) explained to the (units (unknown) date) patient. Written unknown) informed consent was obtained and placed in (unknown) (no (unknown) (unknown) humerus near (units (u nknown) date) unknown) (unknown) (no (unknown) (unknown) infiltration of the (units (unknown) date) subscapularis muscle unknown) superiorly, which may be related to the (unknown) (no (unknown) (unknown) injected (units (unkno wn) date) unknown) (unknown) (no (unknown) (unknown) instructions and (units (unknown) date) sent to the CT suite unknown) for imaging. (unknown) (no (unknown) (unknown) iodinated contrast (units (unknown) date) media injected to unknown) confirm intra-articular placement of the (unknown) (no (unknown) (unknown) iodinated contrast. (unit s (unknown) date) unknown) (unknown) (no (unknown) (unknown) is most (units (unkno wn) date) unknown) (unknown) (no (unknown) (unknown) joint (units (unkno wn) date) unknown) (unknown) (no (unknown) (unknown) likely related to (units (unknown) date) the arthrogram unknown) injection. There is moderate atrophy and grade (unknown) (no (unknown) (unknown) loosening. Mild (units (unknown) date) chronic osseous unknown) remodeling is seen within the glenoid. Mild (unknown) (no (unknown) (unknown) needle tip. (units (un known) date) unknown) (unknown) (no (unknown) (unknown) normal in bulk. (units (unknown) date) unknown) (unknown) (no (unknown) (unknown) obscures adjacent (units (unknown) date) structures. Hardware unknown) is in expected position without signs of (unknown) (no (unknown) (unknown) possibly (units (unkno wn) date) unknown) (unknown) (no (unknown) (unknown) posterior (units (unkn own) date) unknown) (unknown) (no (unknown) (unknown) postprocedural (units (unknown) date) unknown) (unknown) (no (unknown) (unknown) prepped and (units (un known) date) unknown) (unknown) (no (unknown) (unknown) present. (units (unkno wn) date) unknown) (unknown) (no (unknown) (unknown) prior (units (unkno wn) date) unknown) (unknown) (no (unknown) (unknown) procedure were (units (unknown) date) unknown) (unknown) (no (unknown) (unknown) ribs are intact. (units (unknown) date) unknown) (unknown) (no (unknown) (unknown) right-sided (units (un known) date) unknown) (unknown) (no (unknown) (unknown) scapula, with (units ( unknown) date) unknown) (unknown) (no (unknown) (unknown) solution into the (units (unknown) date) shoulder joint for unknown) CT arthrogram. (unknown) (no (unknown) (unknown) streak (units (unkno wn) date) unknown) (unknown) (no (unknown) (unknown) subacromial/subdelt (unit s (unknown) date) oid bursa. Contrast unknown) material within the subscapularis muscle (unknown) (no (unknown) (unknown) subacromial/subdelt (unit s (unknown) date) oid unknown) (unknown) (no (unknown) (unknown) subscapularis (units ( unknown) date) muscle may be unknown) related to postsurgical changes or chronic tendon (unknown) (no (unknown) (unknown) surgery or possibly (unit s (unknown) date) chronic tendon unknown) tearing. The remaining rotator cuff muscles (unknown) (no (unknown) (unknown) tearing. (units (unkno wn) date) unknown) (unknown) (no (unknown) (unknown) the chart. (units (unk nown) date) unknown) (unknown) (no (unknown) (unknown) the pectoralis major (unit s (unknown) date) insertion, which may unknown) represent heterotopic calcification or (unknown) (no (unknown) (unknown) the (units (unkno wn) date) unknown) (unknown) (no (unknown) (unknown) thick sections (units (unknown) date) acquired from the unknown) acromioclavicular joint to the inferior Social History No information. Vital Signs No information.
== END 2022-07-17 12:42 | disposition home or self-care (01) ==
LOC: EDUNIT# → ED 11:08
DX: R11.2 Nausea with vomiting, unspecified (principal)
CPT/HCPCS: 36415; 80053; 83690; 83735; 84100; 85025; 96374; 99283

== ENCOUNTER 2022-11-29 12:32 | Outpatient (CLI) | payer MEDICARE, OTHER | END 2022-11-29 12:33 | disposition critical access hospital (66) | LOC: EMS 12:32 | DX: R11.2 Nausea with vomiting, unspecified (principal); R10.9 Unspecified abdominal pain | CPT/HCPCS: A0425; A0427 ==

== ENCOUNTER 2022-11-29 12:44 | Emergency (ER) | payer MEDICARE, OTHER ==
[2022-11-29 12:55] VITALS: BP 121/69; O2SAT 100
--- NOTE | 2022-11-29 13:12 | ED Physician Documentation ---
History of Present Illness - Stated complaint Stated Complaint: COUGH - Chief complaint Chief Complaint: Resp - Additonal information Additional information: Patient 67-year-old male presenting to the emergency department with chief complaint of fatigue, diarrhea, chills. Reports was otherwise feeling well however believes he may have exerted himself too strenuously on Monday and Monday cutting firewood. On Monday he began to develop episodes of nonbloody nonmucoid diarrhea. Reports that he has been exposed to his who is currently battling shingles.He also reports history of abdominal migraines and frequent episodes of exerting himself to the point where he has diarrhea. States that his "body is out of sync". Denies vomiting but reports nausea. Denies fever, chills, chest pain, abdominal pain. Denies antibiotics or recent travel. Review of Systems Constitutional: denies: Fever Eyes: denies: Loss of vision Ears: denies: Loss of hearing Nose: denies: Rhinorrhea / runny nose Throat: denies: Dental pain / toothache Cardiac: denies: Chest pain / pressure Respiratory: denies: Dyspnea GI: reports: Diarrhea. denies: Abdominal Pain : denies: Dysuria Skin: denies: Rash PD PAST MEDICAL HISTORY - Past Medical History Cardiovascular: [place], Other Respiratory: Sleep apnea Neuro: Peripheral neuropathy Endocrine/Autoimmune: None GI: None : Kidney stones HEENT: None Psych: Depression, Anxiety Musculoskeletal: Osteoarthritis, Chronic back pain Derm: None - Past Surgical History Past Surgical History: Yes General: Appendectomy Ortho: Carpal Tunnel surgery, Shoulder arthroplasty, Spine surgery - Present Medications Home Medications: Ambulatory Orders Medication Instructions Recorded Confirmed Omeprazole 40 mg ORAL DAILY 07/17/22 07/17/22 Promethazine [Phenergan] 25 mg PO Q6H PRN #10 tab 07/17/22 Loperamide HCl [Imodium A-D] 2 mg PO PRN PRN #20 tablet 11/29/22 - Allergies Allergies/Adverse Reactions: Allergies Allergy/AdvReac Type Severity Reaction Status Date / Time amoxicillin Allergy Hives Verified 11/29/22 12:45 - Social History Does the pt smoke?: No Smoking Status: Never smoker Does the pt drink ETOH?: No Does the pt have substance abuse?: Yes - Immunizations Immunizations are current?: Yes - POLST Patient has POLST: No PD ED PE NORMAL - General General: Alert and oriented X 3, No acute distress, Well developed/nourished, Other - HEENT HEENT: Pharynx benign - Neck Neck: Supple, no meningeal sign - Cardiac Cardiac: RRR - Respiratory Respiratory: No respiratory distress - Abdomen Abdomen: Normal bowel sounds, Non tender, Non distended, No organomegaly - Male Male : Deferred - Extremities Extremities: No deformity - Neuro Neuro: Alert and oriented X 3, physician office rep 2-12 intact, No motor deficit, No sensory deficit, Normal speech Results - Vitals Vitals: Vital Signs - 24 hr 11/29/22 12:45 Temperature 36.5 C Heart Rate 69 Respiratory 24 Rate Blood Pressure 121/69 O2 Saturation 100 Oxygen O2 Source Room air - Labs Labs: Laboratory Tests 11/29/22 11/29/22 11/29/22 13:09 13:09 13:32 WBC 10.9 H RBC 3.68 L Hgb 11.9 L Hct 34.6 L MCV 94.0 MCH 32.3 H MCHC 34.4 RDW 12.9 Plt Count 239 MPV 10.1 Neut # (Auto) 9.2 H Lymph # (Auto) 1.2 L [place] # (Auto) 0.4 Eos # (Auto) 0.0 Baso # (Auto) 0.0 Absolute Nucleated RBC 0.00 Nucleated RBC % 0.0 Sodium 140 Potassium 3.7 Chloride 109 Carbon Dioxide 26 Anion Gap 5.0 L BUN 15 Creatinine 1.0 Estimated GFR (MDRD) 74 L Glucose 113 H Calcium 9.2 Total Bilirubin 1.5 H AST 12 ALT 9 L Alkaline Phosphatase 73 Total Protein 5.8 L Albumin 4.0 Globulin 1.8 L Albumin/Globulin Ratio 2.2 Lipase 14 Nasal Adenovirus (PCR) NOT DETECTED Nasal B. parapertussis DNA (PCR) NOT DETECTED Nasal Coronavir 229E PCR NOT DETECTED Nasal Coronavir HKU1 PCR NOT DETECTED Nasal Coronavir NL63 PCR NOT DETECTED Nasal Coronavir OC43 PCR NOT DETECTED Nasal Enterovir/Rhinovir PCR NOT DETECTED Nasal Influenza B PCR NOT DETECTED Nasal Influenza A PCR NOT DETECTED Nasal Parainfluen 1 PCR NOT DETECTED Nasal Parainfluen 2 PCR NOT DETECTED Nasal Parainfluen 3 PCR NOT DETECTED Nasal Parainfluen 4 PCR NOT DETECTED Nasal RSV (PCR) NOT DETECTED Nasal B.pertussis DNA PCR NOT DETECTED Nasal C.pneumoniae (PCR) NOT DETECTED Natanael Human Metapneumo PCR NOT DETECTED Nasal M.pneumoniae (PCR) NOT DETECTED Nasal SARS-CoV-2 (PCR) NOT DETECTED PD Medical Decision Making - ED course Complexity details: reviewed results, re-evaluated patient, considered differential, d/w patient ED course: Patient 67-year-old male presenting to the emergency department with diarrhea and fatigue. Afebrile, he medically stable on arrival to the emergency department. Abdominal exam benign. Labs demonstrate a very minimal leukocytosis with white blood cell count 10.9. Patient has low level chronic anemia slightly worse from baseline. Denied any history of blood or dark tarry stools. Denied any history of abdominal pain, travel, antibiotics or other high risk features associated with his diarrhea. Remainder of his labs all generally within normal limits or nonactionable. Will discharge at this time with Imodium and instructions for oral rehydration and return precautions as well as encouragement for follow-up with primary care. Departure - Departure Disposition: 01 Home, Self Care Clinical Impression: Diarrhea Qualifiers: Diarrhea type: unspecified type Qualified Code(s): R19.7 - Diarrhea, unspecified Fatigue Qualifiers: Fatigue type: unspecified Qualified Code(s): R53.83 - Other fatigue Prescriptions: Loperamide HCl [Imodium A-D] 2 mg PO PRN PRN #20 tablet PRN Reason: Diarrhea Forms: PCP List
[2022-11-29 13:22] LABS: BASOPHILS % (AUTO) 0.3 %; EOSINOPHILS % (AUTO) 0.1 %; HCT - HEMATOCRIT 34.6 % (42.0-52.0); HGB - HEMOGLOBIN 11.9 g/dL (14.0-18.0); LYMPHOCYTES # (AUTO) 1.2 10^3/uL (1.5-3.5); LYMPHOCYTES % (AUTO) 11.3 %; MEAN CORPUSCULAR HEMOGLOBIN 32.3 pg (27.0-31.0); MEAN CORPUSCULAR HGB CONC 34.4 g/dL (32.0-36.0); MEAN PLATELET VOLUME 10.1 fL (7.4-11.4); MONOCYTES # (AUTO) 0.4 10^3/uL (0.0-1.0); MONOCYTES % (AUTO) 3.9 %; NEUTROPHILS # (AUTO) 9.2 10^3/uL (1.5-6.6); NEUTROPHILS % (AUTO) 84.1 %; PLT - PLATELET COUNT 239 10^3/uL (130-450); RED BLOOD COUNT 3.68 10^6/uL (4.70-6.10); RED CELL DISTRIBUTION WIDTH 12.9 % (12.0-15.0); WHITE BLOOD COUNT 10.9 x10^3/uL (4.8-10.8)
[2022-11-29] MEDS: SODIUM CHLORIDE 0.9% 1,000 ML IV STA (13:31)
[2022-11-29 13:35] LABS: ALBUMIN/GLOBULIN RATIO 2.2 (1.0-2.2); BILIRUBIN,TOTAL 1.5 mg/dL (0.2-1.0); CALCIUM 9.2 mg/dL (8.5-10.3); POTASSIUM 3.7 mmol/L (3.5-4.5); TOTAL PROTEIN 5.8 g/dL (6.4-8.9)
--- NOTE | 2022-11-29 14:31 | XRAY Report ---
PROCEDURE: Chest 2 View X-Ray INDICATIONS: cough TECHNIQUE: 2 views of the chest were acquired. COMPARISON: Chest radiograph 04/03/2017 FINDINGS: Surgical changes and devices: Right shoulder arthroplasty Lungs and pleura: No pleural effusions or pneumothorax. Lungs are clear. Mediastinum: Mediastinal contours appear normal. Heart size is normal. Bones and chest wall: No suspicious bony lesions. Overlying soft tissues appear unremarkable. IMPRESSION: No acute cardiopulmonary process. Reviewed by: Lennox Marques MD on 11/29/2022 2:30 PM PDT Approved by: Lennox Marques MD on 11/29/2022 2:30 PM PDT Station ID: [id number]
[2022-11-29 14:37] LABS: B. PARAPERTUSSIS- RESP PCR PAN NOT DETECTED; B. PERTUSSIS- RESP PCR PANEL NOT DETECTED; C. PNEUMONIAE- RESP PCR PANEL NOT DETECTED; CORONAVIRUS 229E-RESP PCR NOT DETECTED; CORONAVIRUS HKU1-RESP PCR NOT DETECTED; CORONAVIRUS NL63-RESP PCR NOT DETECTED; CORONAVIRUS OC43-RESP PCR NOT DETECTED; HUMAN METAPNEUMOVIRUS NOT DETECTED; INFLUENZA A- RESP PCR PANEL NOT DETECTED; INFLUENZA B - RESP PCR PANEL NOT DETECTED; M. PNEUMONIAE- RESP PCR PANEL NOT DETECTED; PARAINFLUENZA VIRUS 1 NOT DETECTED; PARAINFLUENZA VIRUS 2 NOT DETECTED; PARAINFLUENZA VIRUS 3 NOT DETECTED; PARAINFLUENZA VIRUS 4 NOT DETECTED; RHINOVIRUS/ENTEROVIRUS NOT DETECTED; RSV- RESP PCR PANEL NOT DETECTED; SARS-CoV-2 -RESP PCR PANEL NOT DETECTED
== END 2022-11-29 15:03 | disposition home or self-care (01) ==
LOC: EDUNIT# → ED 12:44
DX: R19.7 Diarrhea, unspecified (principal); R53.83 Other fatigue; Z20.822 Contact with and (suspected) exposure to COVID-19
CPT/HCPCS: 36415; 80053; 83690; 85025; 87633; 96360; 99283

== ENCOUNTER 2023-02-07 10:19 | Outpatient (CLI) | payer MEDICARE, OTHER | END 2023-02-07 23:59 | disposition critical access hospital (66) | LOC: EMS 10:19 | DX: R10.84 Generalized abdominal pain (principal); R19.30 Abdominal rigidity, unspecified site; R11.2 Nausea with vomiting, unspecified; R19.7 Diarrhea, unspecified | CPT/HCPCS: A0425; A0427 ==

== ENCOUNTER 2023-02-07 10:27 | Emergency (ER) | payer MEDICARE, OTHER ==
[2023-02-07 10:49] VITALS: O2SAT 98
[2023-02-07] MEDS ORDERED: DROPERIDOL 5 MG/2 ML VIAL IVP STA (11:03)
[2023-02-07] MEDS ORDERED: SODIUM CHLORIDE 0.9% 1,000 ML IV STA (11:03)
[2023-02-07 11:31] LABS: BASOPHILS % (AUTO) 0.3 %; EOSINOPHILS % (AUTO) 0.2 %; HCT - HEMATOCRIT 38.1 % (42.0-52.0); HGB - HEMOGLOBIN 13.1 g/dL (14.0-18.0); LYMPHOCYTES # (AUTO) 1.4 10^3/uL (1.5-3.5); LYMPHOCYTES % (AUTO) 12.2 %; MEAN CORPUSCULAR HEMOGLOBIN 32.3 pg (27.0-31.0); MEAN CORPUSCULAR HGB CONC 34.4 g/dL (32.0-36.0); MEAN CORPUSCULAR VOLUME 93.8 fL (80.0-94.0); MEAN PLATELET VOLUME 9.8 fL (7.4-11.4); MONOCYTES # (AUTO) 0.7 10^3/uL (0.0-1.0); MONOCYTES % (AUTO) 5.7 %; NEUTROPHILS # (AUTO) 9.4 10^3/uL (1.5-6.6); NEUTROPHILS % (AUTO) 81.2 %; PLT - PLATELET COUNT 260 10^3/uL (130-450); RED BLOOD COUNT 4.06 10^6/uL (4.70-6.10); RED CELL DISTRIBUTION WIDTH 12.5 % (12.0-15.0); WHITE BLOOD COUNT 11.6 x10^3/uL (4.8-10.8)
[2023-02-07 11:47] LABS: ALBUMIN 4.8 g/dL (3.2-5.5); ALBUMIN/GLOBULIN RATIO 2.7 (1.0-2.2); BILIRUBIN,TOTAL 2.3 mg/dL (0.2-1.0); CALCIUM 10.2 mg/dL (8.5-10.3); CREATININE 1.1 mg/dL (0.6-1.3); POTASSIUM 3.7 mmol/L (3.5-4.5); TOTAL PROTEIN 6.6 g/dL (6.4-8.9)
--- NOTE | 2023-02-07 12:54 | ED Physician Documentation ---
PD HPI NVD - Stated complaint Stated Complaint: N/V - Chief complaint Chief Complaint: Abd Pain - Additonal information Additional information: 67-year-old male with history of "abdominal migraines" presents by EMS from home for nausea and vomiting. Patient states that he is having another abdominal migraine. He tried to nurse it at home with clear liquids but is still having pain and vomiting and so decided to come in for evaluation. Review of Systems Constitutional: denies: Fever, Chills GI: reports: Abdominal Pain, Nausea, Vomiting. denies: Constipation, Diarrhea Musculoskeletal: denies: Neck pain, Back pain, Extremity pain Neurologic: denies: Generalized weakness, Focal weakness, Numbness PD PAST MEDICAL HISTORY - Past Medical History Cardiovascular: [place], Other Respiratory: Sleep apnea Neuro: Peripheral neuropathy Endocrine/Autoimmune: None GI: None : Kidney stones HEENT: None Psych: Depression, Anxiety Musculoskeletal: Osteoarthritis, Chronic back pain Derm: None - Past Surgical History Past Surgical History: Yes General: Appendectomy Ortho: Carpal Tunnel surgery, Shoulder arthroplasty, Spine surgery - Present Medications Home Medications: Ambulatory Orders Medication Instructions Recorded Confirmed Omeprazole 40 mg ORAL DAILY 07/17/22 07/17/22 Promethazine [Phenergan] 25 mg PO Q6H PRN #10 tab 07/17/22 Loperamide HCl [Imodium A-D] 2 mg PO PRN PRN #20 tablet 11/29/22 - Allergies Allergies/Adverse Reactions: Allergies Allergy/AdvReac Type Severity Reaction Status Date / Time amoxicillin Allergy Hives Verified 02/07/23 10:40 - Social History Does the pt smoke?: No Smoking Status: Never smoker Does the pt drink ETOH?: No Does the pt have substance abuse?: Yes - Immunizations Immunizations are current?: Yes - POLST Patient has POLST: No PD ED PE NORMAL - Vitals Vital signs reviewed: Yes - General General: Alert and oriented X 3, No acute distress, Well developed/nourished - HEENT HEENT: Atraumatic - Cardiac Cardiac: Strong equal pulses, Other (bradycardia) - Respiratory Respiratory: No respiratory distress, Clear bilaterally - Abdomen Abdomen: Soft, Non distended, Other (generalized tenderness to deep palpation) - Derm Derm: Normal color, Warm and dry, No rash - Extremities Extremities: No deformity, No tenderness to palpate, Normal ROM s pain, No edema - Neuro Neuro: Alert and oriented X 3, heater worker 2-12 intact, No motor deficit, Normal speech - Psych Psych: Normal mood, Normal affect Results - Vitals Vitals: Vital Signs - 24 hr 02/07/23 02/07/23 02/07/23 10:39 10:40 12:40 Temperature 36.5 C 36.5 C 36.5 C Heart Rate 43 L 43 L 60 Respiratory 18 18 18 Rate Blood Pressure 170/71 H 170/71 H 150/70 H O2 Saturation 98 98 98 Oxygen O2 Source Room air - Labs Labs: Laboratory Tests 02/07/23 02/07/23 11:25 11:25 WBC 11.6 H RBC 4.06 L Hgb 13.1 L Hct 38.1 L MCV 93.8 MCH 32.3 H MCHC 34.4 RDW 12.5 Plt Count 260 MPV 9.8 Neut # (Auto) 9.4 H Lymph # (Auto) 1.4 L [place] # (Auto) 0.7 Eos # (Auto) 0.0 Baso # (Auto) 0.0 Absolute Nucleated RBC 0.00 Nucleated RBC % 0.0 Sodium 141 Potassium 3.7 Chloride 105 Carbon Dioxide 24 Anion Gap 12.0 BUN 20 Creatinine 1.1 Estimated GFR (MDRD) 66 L Glucose 118 H Calcium 10.2 Total Bilirubin 2.3 H AST 18 ALT 11 Alkaline Phosphatase 77 Total Protein 6.6 Albumin 4.8 Globulin 1.8 L Albumin/Globulin Ratio 2.7 H Lipase 16 PD Medical Decision Making - ED course Complexity details: reviewed old records, reviewed results, re-evaluated patient, considered differential, d/w patient ED course: "Abdominal migraine" similar to previous. Patient does have documented history of marijuana use. Laboratory work is reviewed, chronic elevation in bilirubin, within previous values. Patient has received droperidol and is tolerating p.o. Sleeping comfortably in ED bed. Informed of lab results, emphasized the need for GI follow-up. Departure - Departure Disposition: 01 Home, Self Care Clinical Impression: Nausea & vomiting Qualifiers: Vomiting type: unspecified Qualified Code(s): R11.2 - Nausea with vomiting, unspecified Condition: Stable Instructions: ED Nausea Vomiting Forms: PCP List Discharge Date/Time: 02/07/23 13:07
[2023-02-07 13:09] VITALS: BP 150/70
== END 2023-02-07 13:07 | disposition home or self-care (01) ==
LOC: EDUNIT# → SUPCPDRO 10:27 → ED 10:27
DX: G43.D0 Abdominal migraine, not intractable (principal)
CPT/HCPCS: 36415; 80053; 83690; 85025; 93005; 99283; 99284

== ENCOUNTER 2023-04-16 17:58 | Outpatient (CLI) | payer MEDICARE, OTHER | END 2023-04-16 23:59 | disposition critical access hospital (66) | LOC: EMS 17:58 | DX: R11.12 Projectile vomiting (principal); R33.9 Retention of urine, unspecified; R03.0 Elevated blood-pressure reading, without diagnosis of hypertension | CPT/HCPCS: A0425; A0427 ==

== ENCOUNTER 2023-04-16 18:08 | Emergency (ER) | payer MEDICARE, OTHER ==
[2023-04-16] MEDS ORDERED: DROPERIDOL 5 MG/2 ML VIAL IVP STA (18:46)
[2023-04-16] MEDS ORDERED: SODIUM CHLORIDE 0.9% 1,000 ML IV STA (18:46)
--- NOTE | 2023-04-16 18:47 | ED Physician Documentation ---
PD HPI ABD PAIN - Stated complaint Stated Complaint: N/V - Chief complaint Chief Complaint: Abd Pain - History obtained from History obtained from: Patient, EMS - Additional information Additional information: 67-year-old male with history of abdominal migraines presents for nausea and vomiting at home. Symptoms started 2 days ago, have been constant since onset. Patient states that his usual nausea medications have and he was unable to control his nausea or vomiting and so came to the ER for evaluation. Denies abdominal pain. Review of Systems Constitutional: denies: Fever, Chills Cardiac: denies: Chest pain / pressure Respiratory: denies: Dyspnea, Cough, Wheezing GI: reports: Nausea, Vomiting. denies: Abdominal Pain, Constipation, Diarrhea Musculoskeletal: denies: Neck pain, Back pain, Extremity pain PD PAST MEDICAL HISTORY - Past Medical History Past Medical History: Yes Cardiovascular: [place], Other Respiratory: Sleep apnea Neuro: Peripheral neuropathy Endocrine/Autoimmune: None GI: None : Kidney stones HEENT: None Psych: Depression, Anxiety Musculoskeletal: Osteoarthritis, Chronic back pain Derm: None - Past Surgical History Past Surgical History: Yes General: Appendectomy Ortho: Carpal Tunnel surgery, Shoulder arthroplasty, Spine surgery - Present Medications Home Medications: Ambulatory Orders Medication Instructions Recorded Confirmed Omeprazole 40 mg ORAL DAILY 07/17/22 07/17/22 Promethazine [Phenergan] 25 mg PO Q6H PRN #10 tab 07/17/22 Loperamide HCl [Imodium A-D] 2 mg PO PRN PRN #20 tablet 11/29/22 Promethazine Supp [Phenergan Supp] 25 mg LA Q8H PRN #15 supp 04/16/23 Promethazine [Phenergan] 25 mg PO Q6H PRN #30 tablet 04/16/23 - Allergies Allergies/Adverse Reactions: Allergies Allergy/AdvReac Type Severity Reaction Status Date / Time amoxicillin Allergy Hives Verified 02/07/23 10:40 - Social History Does the pt smoke?: No Smoking Status: Never smoker Does the pt drink ETOH?: No Does the pt have substance abuse?: Yes - Immunizations Immunizations are current?: Yes - POLST Patient has POLST: No PD ED PE NORMAL - Vitals Vital signs reviewed: Yes - General General: Alert and oriented X 3, No acute distress, Well developed/nourished - Cardiac Cardiac: RRR, Strong equal pulses - Respiratory Respiratory: No respiratory distress, Clear bilaterally - Abdomen Abdomen: Soft, Non tender, Non distended - Extremities Extremities: No deformity, No tenderness to palpate, Normal ROM s pain - Neuro Neuro: Alert and oriented X 3, event coordinator 2-12 intact, No motor deficit, Normal speech - Psych Psych: Normal mood, Normal affect Results - Vitals Vitals: Vital Signs - 24 hr 04/16/23 04/16/23 04/16/23 18:12 18:30 18:56 Temperature 36.8 C 37.7 C Heart Rate 78 67 70 Respiratory 18 14 14 Rate Blood Pressure 148/79 H 148/79 H 121/72 O2 Saturation 99 100 95 04/16/23 04/16/23 20:02 20:09 Temperature Heart Rate 89 89 Respiratory 22 20 Rate Blood Pressure 159/79 H O2 Saturation 98 96 Oxygen O2 Source Room air - Labs Labs: Laboratory Tests 04/16/23 04/16/23 18:59 18:59 WBC 8.5 RBC 3.71 L Hgb 11.7 L Hct 34.5 L MCV 93.0 MCH 31.5 H MCHC 33.9 RDW 12.6 Plt Count 223 MPV 9.1 Neut # (Auto) 5.5 Lymph # (Auto) 2.3 [place] # (Auto) 0.6 Eos # (Auto) 0.0 Baso # (Auto) 0.0 Absolute Nucleated RBC 0.00 Nucleated RBC % 0.0 Sodium 140 Potassium 3.5 Chloride 106 Carbon Dioxide 24 Anion Gap 10.0 BUN 21 H Creatinine 1.1 Estimated GFR (MDRD) 66 L Glucose 107 H Calcium 9.2 Total Bilirubin 1.9 H AST 16 ALT 11 Alkaline Phosphatase 65 Total Protein 6.0 L Albumin 4.2 Globulin 1.8 L Albumin/Globulin Ratio 2.3 H Lipase 18 PD Medical Decision Making - ED course Complexity details: reviewed results, re-evaluated patient, considered differential, d/w patient ED course: Nontoxic-appearing male presenting with nausea and vomiting similar to numerous previous episodes of "abdominal migraines". Patient states that the last time he was in the ER he received a cocktail that was very helpful. Record review shows that I administered droperidol and normal saline to the patient at his last day, this was reordered for symptom control. Laboratory work is reviewed, at baseline, no significant derangements. Patient able to tolerate fluids and reports feeling better. Patient discharged with refill of Phenergan per his request. Departure - Departure Disposition: 01 Home, Self Care Clinical Impression: Nausea & vomiting Qualifiers: Vomiting type: unspecified Qualified Code(s): R11.2 - Nausea with vomiting, unspecified Condition: Stable Instructions: ED Nausea Vomiting Prescriptions: Promethazine [Phenergan] 25 mg PO Q6H PRN #30 tablet PRN Reason: Nausea / Vomiting Promethazine Supp [Phenergan Supp] 25 mg LA Q8H PRN #15 supp PRN Reason: Nausea / Vomiting Forms: PCP List Discharge Date/Time: 04/16/23 20:35
[2023-04-16 19:04] LABS: BASOPHILS % (AUTO) 0.4 %; EOSINOPHILS % (AUTO) 0.2 %; HCT - HEMATOCRIT 34.5 % (42.0-52.0); HGB - HEMOGLOBIN 11.7 g/dL (14.0-18.0); LYMPHOCYTES # (AUTO) 2.3 10^3/uL (1.5-3.5); LYMPHOCYTES % (AUTO) 27.1 %; MEAN CORPUSCULAR HEMOGLOBIN 31.5 pg (27.0-31.0); MEAN CORPUSCULAR HGB CONC 33.9 g/dL (32.0-36.0); MEAN PLATELET VOLUME 9.1 fL (7.4-11.4); MONOCYTES # (AUTO) 0.6 10^3/uL (0.0-1.0); MONOCYTES % (AUTO) 7.4 %; NEUTROPHILS # (AUTO) 5.5 10^3/uL (1.5-6.6); NEUTROPHILS % (AUTO) 64.7 %; PLT - PLATELET COUNT 223 10^3/uL (130-450); RED BLOOD COUNT 3.71 10^6/uL (4.70-6.10); RED CELL DISTRIBUTION WIDTH 12.6 % (12.0-15.0); WHITE BLOOD COUNT 8.5 x10^3/uL (4.8-10.8)
[2023-04-16 19:36] LABS: ALBUMIN 4.2 g/dL (3.2-5.5); ALBUMIN/GLOBULIN RATIO 2.3 (1.0-2.2); BILIRUBIN,TOTAL 1.9 mg/dL (0.2-1.0); CALCIUM 9.2 mg/dL (8.5-10.3); CREATININE 1.1 mg/dL (0.6-1.3); POTASSIUM 3.5 mmol/L (3.5-4.5)
[2023-04-16 20:13] VITALS: BP 159/79; O2SAT 96
== END 2023-04-16 20:35 | disposition home or self-care (01) ==
LOC: EDUNIT# → ED 18:08
DX: R11.2 Nausea with vomiting, unspecified (principal)
CPT/HCPCS: 36415; 80053; 83690; 85025; 93005; 96374; 99283

== ENCOUNTER 2023-09-20 07:56 | Outpatient (CLI) | payer MEDICARE, OTHER ==
[2023-09-20 08:31] LABS: BASOPHILS # (AUTO) 0.1 10^3/uL (0.0-0.1); BASOPHILS % (AUTO) 0.6 %; EOSINOPHILS # (AUTO) 0.2 10^3/uL (0.0-0.7); EOSINOPHILS % (AUTO) 2.3 %; HCT - HEMATOCRIT 37.1 % (42.0-52.0); HGB - HEMOGLOBIN 12.2 g/dL (14.0-18.0); LYMPHOCYTES # (AUTO) 2.7 10^3/uL (1.5-3.5); LYMPHOCYTES % (AUTO) 34.6 %; MEAN CORPUSCULAR HGB CONC 32.9 g/dL (32.0-36.0); MEAN CORPUSCULAR VOLUME 97.4 fL (80.0-94.0); MEAN PLATELET VOLUME 9.7 fL (7.4-11.4); MONOCYTES # (AUTO) 0.6 10^3/uL (0.0-1.0); MONOCYTES % (AUTO) 8.1 %; NEUTROPHILS # (AUTO) 4.3 10^3/uL (1.5-6.6); NEUTROPHILS % (AUTO) 54.1 %; PLT - PLATELET COUNT 255 10^3/uL (130-450); RED BLOOD COUNT 3.81 10^6/uL (4.70-6.10); WHITE BLOOD COUNT 7.9 x10^3/uL (4.8-10.8)
[2023-09-20 08:45] LABS: ALBUMIN 4.4 g/dL (3.2-5.5); ALBUMIN/GLOBULIN RATIO 2.2 (1.0-2.2); BILIRUBIN,TOTAL 0.6 mg/dL (0.2-1.0); CALCIUM 9.9 mg/dL (8.5-10.3); CREATININE 1.1 mg/dL (0.6-1.3); POTASSIUM 4.4 mmol/L (3.5-4.5); TOTAL PROTEIN 6.4 g/dL (6.4-8.9)
[2023-09-20 09:42] LABS: ESTIMATED AVERAGE GLUCOSE 120 mg/dL (70-100); HEMOGLOBIN A1c% 5.8 % (4.27-6.07)
[2023-09-20 10:55] LABS: BILIRUBIN,URINE NEGATIVE (NEGATIVE); GLUCOSE, URINE (UA) NEGATIVE (NEGATIVE); KETONES,URINE (UA) NEGATIVE (NEGATIVE); LEUKOCYTE ESTERASE, URINE NEGATIVE (NEGATIVE); NITRITE,URINE NEGATIVE (NEGATIVE); OCCULT BLOOD,URINE SMALL (NEGATIVE); PH,URINE 6.5 PH (5.0-7.5); PROTEIN,URINE NEGATIVE (NEGATIVE); UROBILINOGEN,URINE 0.2 (NORMAL) E.U./dL (NORMAL)
[2023-09-20 11:06] LABS: BACTERIA,URINE None Seen /HPF (None Seen); CLARITY,URINE CLEAR (CLEAR); RBC,URINE 0-5 /HPF (0-5); SQUAMOUS EPITHELIAL CELL,UR NONE SEEN (<= Few); WBC,URINE 0-3 /HPF (0-3)
== END 2023-09-20 07:57 | disposition home or self-care (01) ==
LOC: LAB 07:56
PROVIDERS: ATTEND Family Medicine
DX: Z01.818 Encounter for other preprocedural examination (principal); N39.0 Urinary tract infection, site not specified; R11.2 Nausea with vomiting, unspecified; K29.70 Gastritis, unspecified, without bleeding; K58.9 Irritable bowel syndrome, unspecified; R73.9 Hyperglycemia, unspecified
CPT/HCPCS: 36415; 80053; 80061; 81001; 83036; 83721; 84443; 85025; 87086; 93005

== ENCOUNTER 2023-10-19 08:00 | Outpatient (CLI) | payer MEDICARE, OTHER ==
[2023-10-19 16:05] LABS: BILIRUBIN,URINE NEGATIVE (NEGATIVE); GLUCOSE, URINE (UA) NEGATIVE (NEGATIVE); KETONES,URINE (UA) NEGATIVE (NEGATIVE); LEUKOCYTE ESTERASE, URINE NEGATIVE (NEGATIVE); NITRITE,URINE NEGATIVE (NEGATIVE); OCCULT BLOOD,URINE SMALL (NEGATIVE); PROTEIN,URINE NEGATIVE (NEGATIVE); UROBILINOGEN,URINE 0.2 (NORMAL) E.U./dL (NORMAL)
[2023-10-19 16:22] LABS: CLARITY,URINE CLEAR (CLEAR); WBC,URINE 0-3 /HPF (0-3)
[2023-10-19 16:23] LABS: BACTERIA,URINE None Seen /HPF (None Seen); RBC,URINE 0-5 /HPF (0-5); SQUAMOUS EPITHELIAL CELL,UR NONE SEEN (<= Few)
== END 2023-10-19 23:59 | disposition home or self-care (01) ==
LOC: LAB 08:00
PROVIDERS: ATTEND Urology
DX: R31.0 Gross hematuria (principal)
CPT/HCPCS: 81001; 87086

== ENCOUNTER 2023-11-14 14:17 | Outpatient (CLI) | payer MEDICARE, OTHER ==
[2023-11-14] MEDS ORDERED: iohexoL-300 150 ML BOTTLE ONE (14:51)
[2023-11-14] MEDS: iohexoL-300 150 ML BOTTLE IVP ONE (17:06)
--- NOTE | 2023-11-15 10:16 | CT Report ---
PROCEDURE: IVP INDICATIONS: ASYMPTOMATIC MICROSCOPIC HEMATURIA CONTRAST: Omni 300 140ml TECHNIQUE: A [address] of the abdomen and pelvis was performed. Non-contrast and contrast images were recorded and evaluated at appropriate window settings. Images were recorded and evaluated at appropriate windo w settings. Reformats: coronal and sagittal. For radiation dose reduction, the following was used: au tomated exposure control, adjustment of mA and/or kV according to patient size. COMPARISON: 06/18/2020, 03/05/2020, 06/04/2019 FINDINGS: Image quality: Diagnostic. Lower chest: Unremarkable. Liver: No solid mass. Gallbladder: Within normal limits. Biliary tree: No intrahepatic or extrahepatic dilation, accounting for age. Spleen: No splenomegaly. Pancreas: No pancreatic ductal dilation. Adrenals: No adrenal nodule. Kidneys and ureters: Both kidneys are normal in size. There is a 3 mm nonobstructing right-sided kidn ey stone. Tiny 1 mm nonobstructing kidney stones can be seen on each side. No hydronephrosis is seen. The kidneys enhance normally and symmetrically. There is a cyst measuring water density and measurin g 1.5 cm along the lateral aspect of the right kidney. Along the lateral aspect of the left kidney, t here is an exophytic water density cyst seen measuring 3.3 cm. No hydroureter can be seen. No significant ureteral abnormality is seen. Stomach, bowel and peritoneum: No bowel distension. No pathologic free fluid. Diverticulosis can be s een, without jeanna findings of active diverticulitis. Abdominal Lymph nodes: No central or retroperitoneal adenopathy. Vessels: Unremarkable. Patent portal vein. Reproductive organs: Unremarkable. Bladder: No abnormal wall thickening, accounting for underdistention. No calcified bladder stones. No filling defect within the opacified bladder. Pelvic Lymph nodes: Unremarkable. Bones: No aggressive osseous abnormality. Multiple sites of significant spinal degenerative change ca n be seen. Milder degenerative changes are seen elsewhere. Mild levoconvex scoliotic curvature is se en. Other: None. IMPRESSION: Nonobstructing bilateral renal stones can be seen. No renal masses are seen. No significant bladder abnormalities are seen. Additional findings: Simple bilateral renal cysts Mild levoconvex scoliotic curvature Diverticulosis, without findings of active diverticulitis. Spinal degenerative change Reviewed by: Gurdeep Boles MD on 11/15/2023 9:14 AM AKDT Approved by: Gurdeep Boles MD on 11/15/2023 9:14 AM ALEJANDRINA Station ID: [id number]
== END 2023-11-14 14:18 | disposition home or self-care (01) ==
LOC: LAB 14:17
PROVIDERS: ATTEND Urology
DX: R31.21 Asymptomatic microscopic hematuria (principal); N20.0 Calculus of kidney; N28.1 Cyst of kidney, acquired; K57.90 Diverticulosis of intestine, part unspecified, without perforation or abscess without bleeding; M47.819 Spondylosis without myelopathy or radiculopathy, site unspecified
CPT/HCPCS: 36415; 82565

== ENCOUNTER 2023-12-06 10:05 | Emergency (ER) | payer MEDICARE, OTHER ==
[2023-12-06 10:22] VITALS: O2SAT 99
--- NOTE | 2023-12-06 10:25 | ED Physician Documentation ---
PD HPI NECK PAIN - Stated complaint Stated Complaint: SORE/STIFF NECK - Chief complaint Chief Complaint: General - History obtained from History obtained from: Patient - History of Present Illness Timing - onset: How many days ago (2) Timing - duration: Days (2 - awoke monday morning with neck stiffness that has persisted with increased spasm. Pain and tender right trapezius insertion and occipital ridge area. No rash nor sores. No focal weakness nor radiation to arms. Some extension to scapular medial area c/w muscle.) Timing - details: Gradual onset Location: Lower, Right Quality: Pain, Spasm Associated symptoms: No: Fever, Weakness, Numbness Review of Systems Constitutional: denies: Fever, Chills, Myalgias Skin: denies: Rash, Lesions Neurologic: denies: Focal weakness, Numbness PD PAST MEDICAL HISTORY - Past Medical History Past Medical History: Yes Cardiovascular: [place], Other Respiratory: Sleep apnea Neuro: Peripheral neuropathy Endocrine/Autoimmune: None GI: Other : Kidney stones HEENT: None Psych: Depression, Anxiety Musculoskeletal: Osteoarthritis, Chronic back pain Derm: None Other Past Medical History: IBS - Past Surgical History Past Surgical History: Yes General: Appendectomy Ortho: Knee replacement, Shoulder arthroplasty, Arthroscopic surgery, Carpal Tunnel surgery, Spine surgery - Present Medications Home Medications: Ambulatory Orders Medication Instructions Recorded Confirmed Lidocaine 4 % TP DAILY PRN #10 patch 12/06/23 Omeprazole 20 mg PO BID 12/06/23 12/06/23 tiZANidine [Zanaflex] 4 mg PO Q8H PRN #25 tablet 12/06/23 - Allergies Allergies/Adverse Reactions: Allergies Allergy/AdvReac Type Severity Reaction Status Date / Time amoxicillin Allergy Hives Verified 12/06/23 10:08 NSAIDS (Non-Steroidal AdvReac Cramps Verified 12/06/23 10:08 Anti-Inflamma - Social History Does the pt smoke?: No Smoking Status: Never smoker Does the pt drink ETOH?: No Does the pt have substance abuse?: Yes Substance Use and Type: Marijuana - Immunizations Immunizations are current?: Yes - POLST Patient has POLST: No PD ED PE NORMAL - Vitals Vital signs reviewed: Yes - General General: Alert and oriented X 3, Well developed/nourished, Other (appears in pain, holding right side posterior neck muscles. Guarded ROM of the neck. ) - Neck Neck: No adenopathy, Other (tender right trapezius insertion area without redness, rash nor sores. ) - Derm Derm: Normal color, Warm and dry, No rash - Neuro Neuro: Alert and oriented X 3, No motor deficit, No sensory deficit Results - Vitals Vitals: Oxygen O2 Source Room air PD Medical Decision Making - ED course Complexity details: considered differential (seems muscular and no red flags on history/exam. Point tender in muscle so triger point injection with lido and kenalog done without problems. will treat as musclular strain and spasm. ), d/w patient Departure - Departure Disposition: Home, Self Care Clinical Impression: Muscle spasms of neck, Acute neck pain Condition: Stable Record reviewed to determine appropriate education?: Yes Instructions: ED Neck Pain No Trauma Follow-Up: Rosa Meza MD [Primary Care Provider] - Prescriptions: Lidocaine 4 % TP DAILY PRN #10 patch PRN Reason: Pain 1-4 tiZANidine [Zanaflex] 4 mg PO Q8H PRN #25 tablet PRN Reason: Spasms Comments: Hopefully the injection in that area will ease the pain and spasm of it through today and into tomorrow. In addition use Tylenol/acetaminophen 500 to 650 mg 4 times daily over the next several days to week. Tizanidine muscle relaxant for spasms and stiffness. Also local treatments with lidocaine patch to the area and you can still use the heat that you are using over that area. Mechanical treatments such as massage or chiropractic are good as well. I would anticipate improvement over the next day or 2 and resolution over several days back to baseline. I sent your prescriptions to the [facility] pharmacy here in [place]. Forms: PCP List Discharge Date/Time: 12/06/23 11:41
[2023-12-06] MEDS: KETOROLAC 30 MG/ML VIAL IM STA (10:49)
[2023-12-06] MEDS: methocarbamoL 500 MG TABLET PO STA (10:49)
[2023-12-06] MEDS: ACETAMINOPHEN 500 MG TABLET PO STA (10:49)
[2023-12-06] MEDS: TRIAMCINOLONE 40 MG/ML VIAL MC STA (10:50)
[2023-12-06 11:50] VITALS: BP 130/65
== END 2023-12-06 11:41 | disposition home or self-care (01) ==
LOC: ED 10:05
DX: M54.2 Cervicalgia (principal); M62.838 Other muscle spasm; I25.2 Old myocardial infarction; G62.9 Polyneuropathy, unspecified; Z87.442 Personal history of urinary calculi
CPT/HCPCS: 20552; 96372; 99283; A9270